=== PATIENT | female | born 1955 | race Caucasian/White ===

== ENCOUNTER 2020-07-22 11:18 | Day surgery (SDC) | payer OTHER, SELFPAY ==
[2020-07-16 14:49] VITALS: BMI 23.8
--- NOTE | 2020-07-20 15:08 | P.CONAN_ITS ---
Documented by User: Viri New 07/20/20 15:08 HPI - Anesthesia Eval Consult details Narrative: 65yo F for Colonoscopy PMFSH Past Medical History Medical History Arthritis Hx of cancer of endometrium Osteopenia PONV (postoperative nausea and vomiting) Surgical History Surgical History History of total hysterectomy with bilateral salpingo-oophorectomy (BSO) Hx of colonoscopy Social History Social History Alcohol intake: current Alcohol intake frequency: holidays/special occasions only Smoking Status: Never smoker Use of substances other than those prescribed or required for medical reasons: No Advance Directives: No Advance Directives Information Provided: No Advance Directives on File: No Meds Allergies Allergy/AdvReac Type Severity Reaction Status Date / Time nitrofurantoin [Macrodantin] Allergy Unknown Verified 04/02/20 00:00 Home Medications Medication Instructions Recorded Confirmed Type acetaminophen [Acetaminophen Pain 1,000 mg PO Q6H PRN 07/16/20 07/16/20 History Relief] calcium carbonate [Calcium 600] 600 mg PO BID 07/16/20 07/16/20 History Exam Exam Date and Time: July 20, 2020 1508 Height,Weight and Vital Signs: Height 5 ft 2 in Weight 58.967 kg Assessment and Plan Assessment Anesthesia Assessment: Chart Reviewed Documented by User: Janki Ramirez 07/22/20 11:39 [facility] Past Medical History Medical History Arthritis Hx of cancer of endometrium Osteopenia PONV (postoperative nausea and vomiting) Surgical History Surgical History History of total hysterectomy with bilateral salpingo-oophorectomy (BSO) Hx of colonoscopy Social History Social History Alcohol intake: current Alcohol intake frequency: holidays/special occasions only Smoking Status: Never smoker Use of substances other than those prescribed or required for medical reasons: No Advance Directives: No Advance Directives Information Provided: No Advance Directives on File: No Meds Allergies Allergy/AdvReac Type Severity Reaction Status Date / Time nitrofurantoin [Macrodantin] Allergy Unknown Verified 04/02/20 00:00 Home Medications Medication Instructions Recorded Confirmed Type acetaminophen [Acetaminophen Pain 1,000 mg PO Q6H PRN 07/16/20 07/16/20 History Relief] calcium carbonate [Calcium 600] 600 mg PO BID 07/16/20 07/16/20 History Exam Airway Mallampati Class: I TM Dist: >3cm Neck ROM: Full Loose/Missing/Broken Teeth: No Heart: RRR Lungs: CTA Assessment and Plan Assessment Anesthesia Assessment: Anesthesia Plan Discussed and Chart Reviewed Final Anesthetic Review NPO: Yes ASA Class: II Final Preanesthetic Review: Meds/Allgs Chart Reviewed, Consent Obtained/Reviewed and Anes Risks/Benef Reviewed Patient Risk: Low Procedure Risk: Low Anesthetic Plan Anesthetic Plan: MAC: Disposition: Standard PACU
[2020-07-22 11:32] VITALS: BP 150/90; PULSE 100; TEMP 36.4; O2SAT 98
--- NOTE | 2020-07-22 11:43 | MHC.SHP ---
Pre-Procedural Eval Section B Chief Complaint: SCREENING Details of Present Illness: Colon cancer screening Relevant Family History (Specify if Yes): No Relevant Social History: None Present Medications: see Short Stay Collaborative assessment Medical History: Significant History (Endometrial cancer, s/p [id number], Osteopenia) History of Previous Operations: Relevant previous surgery/procedure and date(s) (2013: SONJA/BSO) Allergies: Allergies Allergy/AdvReac Type Severity Reaction Status Date / Time nitrofurantoin [Macrodantin] Allergy Unknown Verified 04/02/20 00:00 Review of Systems Sugical H&P ROS: Negative: Constitution, Cardiovascular, Respiratory and Gastrointestinal and Yes, Specify: Genitourinary (hx endometrial CA) Exam Surgical H&P Exam: Normal: HEENT, Normal: Heart, Normal: Lungs, Normal: Extremities, Normal: Abdomen and Normal: Skin Plan Diagnosis/Plan: Unchanged Patient has been examined and remains a candidate for the planned procedure--yes
[2020-07-22] MEDS: Lactated Ringers 1,000 ML 100 ML IVCONT (11:46)
[2020-07-22 12:13] VITALS: BP 108/66; PULSE 78; RESP 12; TEMP 36.2; O2SAT 99
--- NOTE | 2020-07-22 12:15 | PM.PROC ---
Brief Operative Note Date of procedure: 07/22/20 Pre-op diagnosis: Colon cancer screening, no clinical changes Post-op diagnosis: other (1+ Internal Hemorrhoids.) Procedure: Colonoscopy Anesthesia: MAC (GRAY Andrews; MD James) Surgeon: Arlin Mondragon Estimated blood loss (mL): 0 Pathology: none sent Condition: stable Disposition: PACU
--- NOTE | 2020-07-22 12:21 | PC.NURSE ---
sitting up in bed alert and awake. merlyn po challenge. denies nause or pain. hob 90 degrees. abd soft. no rectal bleeding noted.
[2020-07-22 12:27] VITALS: BP 136/91; PULSE 76; RESP 16; O2SAT 99
--- NOTE | 2020-07-22 12:34 | PC.NURSE ---
iv removed. merlyn po challenge. denies abd pain or nausea. dressing self in chair. ride called
--- NOTE | 2020-07-22 12:54 | HO.POSTANES ---
Post Anesthesia Evaluation Post Anesthesia Evaluation Vital Signs: Vital Signs Temp Pulse Resp BP Pulse Ox 07/22/20 12:27 99.3 F 76 16 136/91 H 99 07/22/20 12:13 97.2 F 78 12 108/66 99 07/22/20 11:32 97.5 F 100 150/90 H 98 Anesthesia: Monitored Mental Status: Awake Pain Control: Satisfactory Nausea/Vomiting: None Hydration: Adequate Anesthesia-Related Issues: No Anes. Related Issues
--- NOTE | 2020-07-24 18:49 | OP_ITS ---
SURGEON: Arlin Mondragon MD PREOPERATIVE DIAGNOSIS: Colon cancer screening. POSTOPERATIVE DIAGNOSIS: Negative exam, 1+ internal hemorrhoids noted. PROCEDURE PERFORMED: Colonoscopy. ESTIMATED BLOOD LOSS: No blood loss. COMPLICATIONS: No complications ANESTHESIA: Monitored. ANESTHESIOLOGIST: Dr. Ramirez//GRAY Dickey. ASSISTANTS: No psychology assistant. SPECIMENS: No specimens removed. DIRECTOR COMM[facility]ITY [facility]: Dr. Mondragon. FINDINGS: Digital rectal exam revealed adequate sphincter tone. Video colonoscope was introduced without difficulty. It was navigated into the rectosigmoid, sigmoid descending, transverse, ascending colon down into the cecal cap. Appendiceal orifice was seen. Ileocecal valve was seen. Prep was good. Slow rotational views on withdrawing the scope. Anorectal verge was clear. No lesions were seen. PLAN: Current recommendations for repeat asymptomatic screening on this patient would be 7 years. GRAFT OR IMPLANTS: No implants or grafts. CONDITION: Postprocedure, stable. Arlin Mondragon MD MEN/MODL / [id number] MTDD
== END 2020-07-22 13:52 | disposition home or self-care (01) ==
PROVIDERS: PCP Nurse Practitioner Family; Visit Provider Internal Medicine Gastroenterology
PROC: 0DJD8ZZ Inspection of Lower Intestinal Tract, Via Natural or Artificial Opening Endoscopic (ICD-10-PCS; CPT 45378; principal; 2020-07-22 12:30)
DX: Z12.11 Encounter for screening for malignant neoplasm of colon (principal); K64.8 Other hemorrhoids; M19.90 Unspecified osteoarthritis, unspecified site; M85.80 Other specified disorders of bone density and structure, unspecified site; Z85.42 Personal history of malignant neoplasm of other parts of uterus; Z92.3 Personal history of irradiation; Z88.8 Allergy status to other drugs, medicaments and biological substances
CPT/HCPCS: 45378

== ENCOUNTER → 2020-08-20 09:51 | Outpatient (BNVA) | payer MEDICARE, OTHER, SELFPAY | PROVIDERS: PCP Nurse Practitioner Family; Referring Provider Nurse Practitioner Family; Visit Provider Nurse Practitioner | DX: Z12.11 Encounter for screening for malignant neoplasm of colon (principal) | CPT/HCPCS: Q3014 ==

== ENCOUNTER 2020-08-26 15:02 | Outpatient (REF) | payer MEDICARE, OTHER, SELFPAY ==
--- NOTE | 2020-08-26 15:23 | MM_ITS ---
EXAMINATION: MM SCREENING DIGITAL BREAST TOMOSYNTHESIS, BILATERAL CLINICAL INFORMATION: Screening. Asymptomatic. The lifetime risk of breast cancer based on the Tyrer-Cuzick Model is 5%. COMPARISON: Mammography: 03/14/2019 TECHNIQUE: Digital breast tomosynthesis is performed in both the craniocaudal and mediolateral oblique views along with computer-aided detection (CAD). Synthesized 2D images are generated from the tomosynthesis. Additional left MLO view is provided. FINDINGS: There are scattered areas of fibroglandular density (ACR BI-RADS breast composition Category b). There are no significant masses, abnormal calcifications, or other abnormalities. Oval parenchymal asymmetry central lower right breast on MLO view is stable. There are incidental minor vascular calcification. The axilla are unremarkable. No significant changes. MM/MM tomosynthesis screening BI IMPRESSION: No significant changes from prior study. ASSESSMENT: BI-RADS 2: Benign RECOMMENDATION: Routine annual mammography screening. This patient's information was entered into a reminder system with a target due date for their next mammogram.
== END 2020-08-26 15:03 | disposition home or self-care (01) ==
LOC: HO.MAMMO 15:02
PROVIDERS: PCP Nurse Practitioner Family; Visit Provider Student in an Organized Health Care Education/Training Program
DX: Z12.31 Encounter for screening mammogram for malignant neoplasm of breast (principal)
CPT/HCPCS: 77063; 77067

== ENCOUNTER → 2020-09-28 15:40 | Outpatient (BNVA) | payer MEDICARE, OTHER, SELFPAY | PROVIDERS: PCP Nurse Practitioner Family; Referring Provider Nurse Practitioner Family; Visit Provider Student in an Organized Health Care Education/Training Program | DX: M19.041 Primary osteoarthritis, right hand (principal); M19.042 Primary osteoarthritis, left hand | CPT/HCPCS: 99212 ==

== ENCOUNTER 2021-09-12 12:14 | Outpatient (REF) | payer MEDICARE, SELFPAY ==
--- NOTE | ~2021-09-12 | MM_ITS ---
EXAMINATION: MM SCREENING DIGITAL BREAST TOMOSYNTHESIS, BILATERAL CLINICAL INFORMATION: Screening. Asymptomatic. The lifetime risk of breast cancer based on the Tyrer-Cuzick Model is 5%. COMPARISON: Mammography: 08/26/2020, 03/14/2019 TECHNIQUE: Digital breast tomosynthesis is performed in both the craniocaudal and mediolateral oblique views along with computer-aided detection (CAD). Synthesized 2D images are generated from the tomosynthesis. FINDINGS: There are scattered areas of fibroglandular density (ACR BI-RADS breast composition Category b). There are no significant masses, abnormal calcifications, or other abnormalities. Parenchymal pattern is similar to prior exams. No developing density. No architectural changes. The axilla and skin contours are unremarkable. MM/MM tomosynthesis screening BI IMPRESSION: No mammographic evidence of malignancy. ASSESSMENT: BI-RADS 1: Negative RECOMMENDATION: Routine annual mammography screening. This patient's information was entered into a reminder system with a target due date for their next mammogram.
== END 2021-09-12 12:15 | disposition home or self-care (01) ==
LOC: HO.MAMMO 12:14
PROVIDERS: Absent Provider Student in an Organized Health Care Education/Training Program; Visit Provider Internal Medicine
DX: Z12.31 Encounter for screening mammogram for malignant neoplasm of breast (principal)
CPT/HCPCS: 77063; 77067

== ENCOUNTER 2021-09-30 | Outpatient (REF) | payer MEDICARE, SELFPAY ==
[2021-09-30 12:24] LABS: Alanine Aminotransferase 19 U/L (0-31); Alkaline Phosphatase 71 U/L (39-117); Anion Gap 10 (12-20); Aspartate Amino Transferase 18 U/L (5-31); Bilirubin Total 0.4 mg/dL (0.0-1.0); Blood Urea Nitrogen 24 mg/dL (9-16); Calcium 9.9 mg/dL (8.4-10.2); Carbon Dioxide 30 mmol/L (22-29); Chloride 105 mmol/L (96-108); Estimated Glomerular Filt Rate > 60; Glucose Random 98 mg/dL (60-115); Potassium 4.4 mmol/L (3.3-5.1); Sodium 141 mmol/L (135-145)
== END 2021-09-30 00:01 | disposition home or self-care (01) ==
LOC: HO.LAB
PROVIDERS: PCP Internal Medicine; Visit Provider Nurse Practitioner Family
DX: M19.041 Primary osteoarthritis, right hand (principal); M19.042 Primary osteoarthritis, left hand
CPT/HCPCS: 36415; 80053

== ENCOUNTER → 2021-09-30 10:01 | Outpatient (BNVA) | payer MEDICARE, SELFPAY | PROVIDERS: PCP Nurse Practitioner Family; Visit Provider Nurse Practitioner Family | DX: M19.041 Primary osteoarthritis, right hand (principal); M19.042 Primary osteoarthritis, left hand; M54.2 Cervicalgia; M79.671 Pain in right foot | CPT/HCPCS: 99212 ==

== ENCOUNTER → 2021-11-22 14:44 | Outpatient (BNVA) | payer MEDICARE, SELFPAY | PROVIDERS: PCP Internal Medicine; Visit Provider Nurse Practitioner | DX: R19.7 Diarrhea, unspecified (principal); B37.9 Candidiasis, unspecified | CPT/HCPCS: 99212 ==

== ENCOUNTER → 2022-02-27 11:25 | Outpatient (BNVA) | payer MEDICARE, SELFPAY | PROVIDERS: PCP Internal Medicine; Visit Provider Nurse Practitioner | DX: R19.7 Diarrhea, unspecified (principal) | CPT/HCPCS: 99212 ==

== ENCOUNTER 2022-09-22 09:22 | Outpatient (REF) | payer MEDICARE, SELFPAY ==
--- NOTE | ~2022-09-22 | MM_ITS ---
EXAMINATION: BONE DENSITOMETRY CLINICAL INDICATION: Osteopenia. COMPARISON: Baseline BD dated 05/21/2020. TECHNIQUE: Using a [employer] DXA System (software version: 13.1) manufactured by [employer] (T/A), dual-energy x-ray absorptiometry was performed of the lumbar spine and left hip. The images are of good technical quality. Summary results are attached. FINDINGS: AP SPINE L1-L4: Current: BMD 0.998 g/cm2, Z-score 0.3, T-score -1.5, osteopenia, 0.8% decrease from baseline (<5% change is not significant). Baseline: BMD 1.006 g/cm2. LEFT FEMUR, NECK: Current: BMD 0.703 g/cm2, Z-score -0.7, T-score -2.4, osteopenia. Baseline: BMD 0.741 g/cm2. LEFT FEMUR, TOTAL: Current: BMD 0.739 g/cm2, Z-score -0.6, T-score -2.1, osteopenia, 6.3% decrease from baseline (<5% change is not significant). Baseline: BMD 0.789 g/cm2. IDENTIFIED RISK FACTORS: Menopause. Hysterectomy. Bilateral oophorectomy. HISTORY OF FRACTURE: None listed. MEDICATIONS: Calcium supplement or multivitamin. Vitamin D. MM/XR DEXA axial skeleton IMPRESSION: 1. DIAGNOSIS: Osteopenia based on the lowest T-score value of -2.4 in the femoral neck applying World Health Organization criteria. 2. 10-YEAR FRACTURE RISK PREDICTION, FRAX: Major osteoporotic fracture (clinical spine, forearm, hip or shoulder) 13.4%. Hip fracture 3.0%. 3. Treatment Recommendations: NOF guidelines recommend consideration for treatment in postmenopausal women and men age 50 and older presenting with the following: -A hip or vertebral (clinical or morphometric) fracture. -T-score less than or equal to -2.5 at the femoral neck or spine after appropriate evaluation to exclude secondary causes. -Low bone mass at the hip or spine and a 10-year fracture probability by FRAX of greater than or equal to 3% for hip fracture or greater than or equal to 20% for major osteoporotic fracture based on the [place] adapted WHO algorithm. 4. Other Recommendations: All treatment decisions require clinical judgment and consideration of individual patient factors, including patient preferences, comorbidities, previous drug use, risk factors not captured in the FRAX model (e.g. frailty, falls, vitamin D deficiency, increased bone turnover, interval significant decline in bone density) and possible under or overestimation of fracture risk by FRAX. Additional medical evaluation for secondary cause of low bone mineral density may be appropriate. FUTURE SCAN RECOMMENDATION: People with diagnosed cases of osteoporosis or at high risk for fracture should have regular bone mineral density tests. For patients eligible for Medicare, routine testing is allowed once every 2 years. The testing frequency can be increased to one year for patients who have rapidly progressing disease, those who are receiving or discontinuing medical therapy to restore bone mass, or have additional risk factors.
--- NOTE | ~2022-09-22 | MM_ITS ---
EXAMINATION: MM SCREENING DIGITAL BREAST TOMOSYNTHESIS, BILATERAL CLINICAL INFORMATION: Screening. Asymptomatic. The lifetime risk of breast cancer based on the Tyrer-Cuzick Model is 4%. COMPARISON: Mammography: 09/12/2021, 08/26/2020, 03/14/2019 TECHNIQUE: Digital breast tomosynthesis is performed in both the craniocaudal and mediolateral oblique views along with computer-aided detection (CAD). Synthesized 2D images are generated from the tomosynthesis. FINDINGS: There are scattered areas of fibroglandular density (ACR BI-RADS breast composition Category b). There are no significant masses, abnormal calcifications, or other abnormalities. Parenchymal pattern is similar to prior studies. There is no developing density or architectural abnormality. The axilla and skin contours are unremarkable. No significant changes. MM/MM tomosynthesis screening BI IMPRESSION: No mammographic evidence of malignancy. ASSESSMENT: BI-RADS 1: Negative RECOMMENDATION: Routine annual mammography screening. This patient's information was entered into a reminder system with a target due date for their next mammogram.
== END 2022-09-22 09:23 | disposition home or self-care (01) ==
LOC: HO.MAMMO 09:22
PROVIDERS: PCP Internal Medicine; Visit Provider Student in an Organized Health Care Education/Training Program
DX: Z12.31 Encounter for screening mammogram for malignant neoplasm of breast (principal); M81.8 Other osteoporosis without current pathological fracture; M85.811 Other specified disorders of bone density and structure, right shoulder; M85.812 Other specified disorders of bone density and structure, left shoulder; M85.821 Other specified disorders of bone density and structure, right upper arm; M85.822 Other specified disorders of bone density and structure, left upper arm; M85.831 Other specified disorders of bone density and structure, right forearm; M85.832 Other specified disorders of bone density and structure, left forearm; M85.841 Other specified disorders of bone density and structure, right hand; M85.842 Other specified disorders of bone density and structure, left hand; M85.851 Other specified disorders of bone density and structure, right thigh; M85.852 Other specified disorders of bone density and structure, left thigh; M85.861 Other specified disorders of bone density and structure, right lower leg; M85.862 Other specified disorders of bone density and structure, left lower leg; M85.871 Other specified disorders of bone density and structure, right ankle and foot; M85.872 Other specified disorders of bone density and structure, left ankle and foot; M85.88 Other specified disorders of bone density and structure, other site; N95.8 Other specified menopausal and perimenopausal disorders
CPT/HCPCS: 77063; 77067; 77080

== ENCOUNTER → 2022-09-29 11:11 | Outpatient (BNVA) | payer MEDICARE, SELFPAY | PROVIDERS: PCP Nurse Practitioner Family; Visit Provider Nurse Practitioner Family | DX: M19.041 Primary osteoarthritis, right hand (principal); M19.042 Primary osteoarthritis, left hand; M43.16 Spondylolisthesis, lumbar region | CPT/HCPCS: 99212 ==

== ENCOUNTER 2023-06-28 09:37 | Outpatient (AMB) | payer MEDICARE, SELFPAY ==
--- NOTE | 2023-06-28 09:38 | MHC.OFFVIS ---
Intake Vital Signs 06/28/23 09:39 Height 5 ft 1 in Weight 134 lb 0.657 oz BMI 25.3 BP 156/82 H Blood Pressure Location Lt brachial Position Sitting Pulse 82 Pulse Source Pulse Oximeter Temp 97 F Temp Source Skin Pulse Oximetry (%) 98 Oxygen Delivery Method Room Air Intake Visit Reasons: OA Intake Note: Patient presents today to follow up on OA. c/o low back pain. Reports having OA in the back. Customer Contact Representative Required: No Accompanied by: Self / Same As Patient Allergies nitrofurantoin [Macrodantin] Allergy (Unknown, Verified 06/28/23 09:38) Unknown HPI HPI Comments History of Present Illness Details The patient returns today for evaluation of her osteoarthritis. She had last been seen earlier in the year. She has remained on acetaminophen 650 mg twice a day. Occasionally she supplements this with some oghi-tsy-lgefabm ibuprofen. She is worried about potential side effects taking these medications chronically. Areas of pain include the right hand mostly around the 2nd MCP which she had an old injury. She also gets some lower back pain and foot pain. She has not noticed any significant swelling in these areas. [facility] Medical History Arthritis Hx of cancer of endometrium Osteopenia PONV (postoperative nausea and vomiting) Primary osteoarthritis of hands, bilateral Surgical History Hx of colonoscopy History of total hysterectomy with bilateral salpingo-oophorectomy (BSO) Family History Father No problems noted. Mother Asthma Maternal Aunt Diabetes Social History (Updated 06/28/23 @ 09:43 by REZA Grimm) Alcohol intake: current Alcohol intake frequency: holidays/special occasions only Patient Tobacco Use Status: Never used Tobacco Current occupational status: retired Current occupation: former [employer] Review of Systems Const Details: Negative for appetite change, weight change, fever, chills, malaise and fatigue Eyes Details: Negative for vision change, dry eyes,headaches and dizziness GI Details: Negative indigestion/heartburn, nausea, abdominal pain, bowel changes, diarrhea, constipation and bloody stool. Skin/Breast Details: Negative for itching, rash, hives, Raynaud's symptoms, sun sensitivity, and skin cancer Endo Details: Negative for polyuria and polydypsia Sj/Lymph Details: Negative for excessive bruising or bleeding. Physical Exam Vital Signs: Last Vital Signs Temp 97 F 06/28/23 09:39 Pulse 82 06/28/23 09:39 BP 156/82 H 06/28/23 09:39 Pulse Ox 98 06/28/23 09:39 Oxygen Delivery Method Room Air 06/28/23 09:39 BMI result Body Mass Index 25.3 APPEARANCE: Patient in no acute distress EYES no redness, pupils equal and reactive to light, eyelids normal. No temporal artery tenderness, redness or swelling. EXTREMITIES: No edema, no calf tenderness, normal peripheral pulses. 5/5 strength throughout. JOINT EXAM:?? Cervical Spine:? Full range of motion with mild discomfort felt posteriorly at the extremes of normal range of motion. No tenderness. Thoracic Spine:? No scoliosis.? No tenderness on palpation. Lumbar Spine: Alignment normal.? Full range of motion, slight pain over the lumbar spine with flexion and extension. Slight tenderness to palpation over the lumbar spine. Hands: LEFT:? Normal pain-free range of motion. There is nontender bony enlargement at all the PIP and the DIP joints. There is no flexor tendon triggering, soft tissue swelling, thenar atrophy or sensory loss. RIGHT: Normal pain-free range of motion. There is some slight tenderness at the 2nd MCP where she had her old injury but there is no swelling, increased warmth or erythema. There is nontender bony enlargement at the thumb IP, all the PIP, and all the D IP joints. None of these seem to be tender today. There is no thenar atrophy, triggering, or sensory loss. Wrists:? Normal pain-free range of motion without tenderness, swelling, increased warmth or erythema. Elbows: Normal pain-free range of motion without tenderness, swelling, increased warmth or erythema. Shoulders:?? Full range of motion without pain. No tenderness, weakness, swelling, increased warmth or erythema. Hips:? Full range of motion without pain. Hip bursa: No tenderness. Knees:?? Normal pain-free range of motion with mild patellofemoral crepitus but no effusion,tenderness, swelling, increased warmth or erythema.? Ankles:? Normal pain-free range of motion without tenderness, swelling, increased warmth or erythema. Feet: Normal pain-free range of motion with slight bony enlargement and tenderness at the 1st MTP joints. There may be some minimal hallux valgus deformity on the right. Otherwise no other areas of tenderness, swelling, increased warmth or erythema. Tender points:? No tenderness to digital palpation at the occiput, trapezius, second rib, lateral epicondyle, knees, greater trochanter and gluteal area bilaterally. ? Results Reviewed Results Reviewed: Laboratory Tests 03/25/20 15:20 Rheumatoid Factor < 15.0 Cycl Citrul Peptide IgG <16 Assessment & Plan Assessment & Plan (1) Osteoarthritis of lumbar spine: Code(s): M47.816 - Spondylosis without myelopathy or radiculopathy, lumbar region (2) Primary osteoarthritis of hands, bilateral: Code(s): M19.041 - Primary osteoarthritis, right hand; M19.042 - Primary osteoarthritis, left hand Plan The patient has symptoms from osteoarthritis in the hands, cervical spine, lumbar spine and the feet. She does seem to do fairly well with current treatment with acetaminophen and occasional ibuprofen. She wanted a refill on the long-acting acetaminophen which I provided her with, she could take up to 3000 mg of the acetaminophen spread throughout the day. She could also add some low-dose ibuprofen to that. I told her that the ibuprofen has risk of GI bleeding, hypertension, and a rare side effect of nephrotoxicity. I think she is unlikely to run into those problems with the low-dose regimen. A recheck in a year would be reasonable although she could also get these refills from her primary doctor. Medications: Changed From acetaminophen ER (Tylenol Arthritis Pain) 650 mg PO Q8H PRN 90 tabs 3RF pain M47.816 - Spondylosis without myelopathy or radiculopathy, lumbar region To acetaminophen ER (Tylenol Arthritis Pain) 650 - 1,300 mg (1 - 2 x 650 mg) PO Q12H PRN 120 tabs 5RF pain M47.816 - Spondylosis without myelopathy or radiculopathy, lumbar region Coding Level of Care Code Est Pt Level 3 (09086) Diagnoses Osteoarthritis of lumbar spine M47.816 Primary osteoarthritis of hands, bilateral M19.041; M19.042
[2023-06-28 09:39] VITALS: BP 156/82; PULSE 82; TEMP 36.1; O2SAT 98; BMI 25.3
== END 2023-06-28 10:30 | disposition home or self-care (01) ==
PROVIDERS: PCP Internal Medicine; Visit Provider Internal Medicine Rheumatology
DX: M47.816 Spondylosis without myelopathy or radiculopathy, lumbar region (principal); M19.041 Primary osteoarthritis, right hand; M19.042 Primary osteoarthritis, left hand
CPT/HCPCS: 99213

== ENCOUNTER → 2023-06-28 09:37 | Outpatient (BNVA) | payer MEDICARE, SELFPAY | PROVIDERS: PCP Internal Medicine; Visit Provider Internal Medicine Rheumatology | DX: M47.816 Spondylosis without myelopathy or radiculopathy, lumbar region (principal); M19.041 Primary osteoarthritis, right hand; M19.042 Primary osteoarthritis, left hand | CPT/HCPCS: 99212 ==

== ENCOUNTER 2023-10-08 14:20 | Outpatient (REF) | payer MEDICARE, SELFPAY | END 2023-10-08 14:21 | disposition home or self-care (01) | LOC: HO.MAMMO 14:20 | PROVIDERS: PCP Internal Medicine; Visit Provider Student in an Organized Health Care Education/Training Program | DX: Z12.31 Encounter for screening mammogram for malignant neoplasm of breast (principal) | CPT/HCPCS: 77063; 77067 ==

== ENCOUNTER → 2023-10-08 14:30 | Outpatient (BNV) | payer MEDICARE, SELFPAY | PROVIDERS: PCP Internal Medicine; Visit Provider Radiology Diagnostic Radiology | DX: Z12.31 Encounter for screening mammogram for malignant neoplasm of breast (principal) | CPT/HCPCS: 77063; 77067 ==

== ENCOUNTER 2024-07-01 09:42 | Outpatient (AMB) | payer MEDICARE, SELFPAY ==
[2024-07-01 09:47] VITALS: BP 138/72; PULSE 75; O2SAT 99; BMI 24.2
--- NOTE | 2024-07-01 09:47 | MHC.OFFVIS ---
Vital Signs 07/01/24 09:47 Height 5 ft 1 in Weight 128 lb BMI 24.2 BP 138/72 Blood Pressure Location Lt brachial Position Sitting Pulse 75 Pulse Source Pulse Oximeter Pulse Oximetry (%) 99 Oxygen Delivery Method Room Air Intake Visit Reasons: oa Intake Note: Patient presents today for follow up on osteoarthritis. She was last seen in the office by Dr. Arevalo on 06/28/23. Allergies nitrofurantoin [Macrodantin] Allergy (Unknown, Verified 07/01/24 09:52) Unknown Medication List - Last Reconciled 07/01/24 by Peggy Fraser MD acetaminophen ER (Tylenol Arthritis Pain) 650 - 1,300 mg (1 - 2 x 650 mg) PO Q12H PRN calcium carbonate (Calcium 600) 600 mg PO BID ibuprofen (Advil) 200 mg PO Q6H PRN HPI Comments Details: Patient is a 69-year-old female who presents for follow up management of her osteoarthritis. Interval History: Last seen 06/28/[address] Alden Arevalo at that time patient was stable with regards to her osteoarthritis. Reassurance provided re chronic use of Tylenol and information provided about the use of ibuprofen. She is here today for follow-up Currently complaining of right shoulder stiffness. Difficult to raise her hand above her head without pain or stiffness to the right shoulder. Left shoulder without any issues. Continues to have hand pain bilaterally. Rheumatologic History: Patient refer to 03/2020 for hand pain. Evaluation at that time found the hand pain to be consistent with osteoarthritis. She has been manage with daily Tylenol and conservative management. Current Rheumatology Medication(s): Tylenol Arthritis pain Ibuprofen p.r.n. Calcium 600 mg p.o. twice a day [facility] Medical History (Updated 07/01/24 @ 10:33 by Peggy Fraser MD) Right shoulder pain Osteopenia after menopause Primary osteoarthritis of hands, bilateral PONV (postoperative nausea and vomiting) Hx of cancer of endometrium Arthritis Osteopenia Surgical History Hx of colonoscopy History of total hysterectomy with bilateral salpingo-oophorectomy (BSO) Family History Father No problems noted. 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 Review of Systems Const Details: Review of Systems Constitutional: Denies fever, chills, weight loss ENT: Denies vision changes, eye pain or eye redness, dental caries, dry mouth GI: Denies nausea, vomiting, diarrhea, abdominal pain, change in BM Pulm: Denies SOB, EVANS, hemoptysis, wheezing Cards: Denies chest pain, palpitations Skin: Denies Raynaud's, rash, nail changes, photosensitivity, 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 ?Gait normal. Constitutional Mucous membranes pink and moist patient alert and cooperative HEENT Conjunctiva and sclera clear. ?Pupils equal round and reactive to light. ?No lymphadenopathy. ?Normal dentition. Respiratory System Normal respiratory effort and able to speak in complete sentences. ?Clear to auscultation bilaterally. ?No crackles, rales, rhonchi, wheezes heard. Cardiac System Regular rate and rhythm. ?S1 and S2 heard no murmurs. ?Radial pulses intact bilaterally MSK ?No evidence of synovitis. ?Able to move all joints with full range of motion, without limitation. Hands:.??Normal pain-free range of motion without tenderness, swelling, increased warmth or erythema. Able to make a full fist and has a good coal chemist strength. Heberden's nodes throughout PIPs. Wrists: Normal pain-free range of motion without tenderness, swelling, increased warmth or erythema. Elbows: Full range of motion without pain. No tenderness, weakness, swelling, increased warmth or erythema. Shoulders: Right shoulder with decreased active range of motion but normal passive range of motion. Negative empty can test but positive Neer C[place]rena test. No swelling. Left shoulder with full range of motion to active and passive movement. Negative impingement test. Knees:.???Normal pain-free range of motion without tenderness, swelling, increased warmth or erythema.? Bilateral crepitations felt. Ankles:.??Normal pain-free range of motion without tenderness, swelling, increased warmth or erythema. Feet:.??Normal pain-free range of motion without tenderness, swelling, increased warmth or erythema. Tender points:??No tenderness to digital palpation at the occiput, trapezius, second rib, lateral epicondyle, knees, greater trochanter bilaterally, and left gluteal. Results Reviewed Results Reviewed: Laboratory Tests 03/25/20 15:20 Rheumatoid Factor < 15.0 Cycl Citrul Peptide IgG <16 DEXA 09/22/22 FINDINGS: AP SPINE L1-L4: Current: BMD 0.998 g/cm2, Z-score 0.3, T-score -1.5, osteopenia, 0.8% decrease from baseline (<5% change is not significant). Baseline: BMD 1.006 g/cm2. LEFT FEMUR, NECK: Current: BMD 0.703 g/cm2, Z-score -0.7, T-score -2.4, osteopenia. Baseline: BMD 0.741 g/cm2. LEFT FEMUR, TOTAL: Current: BMD 0.739 g/cm2, Z-score -0.6, T-score -2.1, osteopenia, 6.3% decrease from baseline (<5% change is not significant). Baseline: BMD 0.789 g/cm2. 10-YEAR FRACTURE RISK PREDICTION, FRAX: Major osteoporotic fracture (clinical spine, forearm, hip or shoulder) 13.4%. Hip fracture 3.0%. Assessment & Plan Assessment & Plan (1) Primary osteoarthritis of hands, bilateral: Code(s): M19.041 - Primary osteoarthritis, right hand; M19.042 - Primary osteoarthritis, left hand Category: Medical Plan: #OA involving the hands and spine Patient to continue conservative management with Tylenol and ibuprofen as needed for pain Encouraged activity including stretching. Handout given. Recommended topical diclofenac twice a day. She will get this [id number]. (2) Osteopenia after menopause: Comment: DEXA 09/22/22. Spine -1.5, Left femur neck -2.4, Left femur -2.1. (FRAX Major 13.4, Hip 3) Code(s): M85.80 - Other specified disorders of bone density and structure, unspecified site; Z78.0 - Asymptomatic menopausal state Category: Medical Plan: #Osteopenia Patient with osteopenia involving the spine and left femur. FRAX for major osteoporotic fracture and hip fracture is below the percentage recommended for commencement of treatment. (major osteoporotic fracture would need to be greater than 20% and hip fracture would need to be greater than 3%). I agreed with holding off treatment for now. Advised patient to continue vitamin-D and calcium. Also gave her a printout for weight-bearing exercises and instructed her of the importance of doing weight-bearing exercises in the manufacturing of new bone. (3) Right shoulder pain: Code(s): M25.511 - Pain in right shoulder Category: Medical Qualifiers: Chronicity: unspecified Qualified Code(s): M25.511 - Pain in right shoulder Plan: #Right Shoulder pain Patient with pain to the right shoulder. History and exam seems to be weak consistent with rotator cuff disease. Also in the differential as frozen shoulder however I was able to move the shoulder in full range of motion on passive movement. Also in the differential is AC joint osteoarthritis versus glenohumeral joint osteoarthritis. We will check x-rays and review. Plan I spent 25 minutes reviewing the record and labs, seeing the patient, discussing the treatment plan and documenting in the medical record ? For next visit: DEXA scan review Orders: Orders XR shoulder RT min 2V Today M19.041 - Primary osteoarthritis, right hand, M19.042 - Primary osteoarthritis, left hand, M47.816 - Spondylosis without myelopathy or radiculopathy, lumbar region XR DEXA axial skeleton 1 Year M19.041 - Primary osteoarthritis, right hand, M19.042 - Primary osteoarthritis, left hand, M85.80 - Other specified disorders of bone density and structure, unspecified site, Z78.0 - Asymptomatic menopausal state Medications: Refilled acetaminophen ER (Tylenol Arthritis Pain) 650 - 1,300 mg (1 - 2 x 650 mg) PO Q12H PRN 120 tabs 5RF pain M47.816 - Spondylosis without myelopathy or radiculopathy, lumbar region Coding Level of Care Code Est Pt Level 3 (80224) Diagnoses Primary osteoarthritis of hands, bilateral M19.041; M19.042 Osteopenia after menopause M85.80; Z78.0 Right shoulder pain, unspecified chronicity M25.511 Chronicity: unspecified
== END 2024-07-01 10:23 | disposition home or self-care (01) ==
PROVIDERS: PCP Internal Medicine; Visit Provider Student in an Organized Health Care Education/Training Program
DX: M19.041 Primary osteoarthritis, right hand (principal); M19.042 Primary osteoarthritis, left hand; M85.80 Other specified disorders of bone density and structure, unspecified site; Z78.0 Asymptomatic menopausal state; M25.511 Pain in right shoulder
CPT/HCPCS: 99213

== ENCOUNTER 2024-07-01 09:42 | Outpatient (REF) | payer MEDICARE, SELFPAY | END 2024-07-01 09:43 | disposition home or self-care (01) | LOC: HO.XRAY 09:42 | PROVIDERS: PCP Internal Medicine; Visit Provider Student in an Organized Health Care Education/Training Program | DX: M25.511 Pain in right shoulder (principal); M19.041 Primary osteoarthritis, right hand; M19.042 Primary osteoarthritis, left hand; M47.816 Spondylosis without myelopathy or radiculopathy, lumbar region; M85.80 Other specified disorders of bone density and structure, unspecified site; Z78.0 Asymptomatic menopausal state | CPT/HCPCS: 73030; 99212 ==

== ENCOUNTER 2024-07-11 12:52 | Outpatient (AMB) | payer MEDICARE, SELFPAY ==
[2024-07-11 13:06] VITALS: BP 153/87; PULSE 91; BMI 24.1
--- NOTE | 2024-07-11 13:06 | A.OFFVIS_ITS ---
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 CC: Patient c/o epigastric pain and burning sometimes, and acid reflux. She reports sometimes soft stools and other times more solid but not too hard . Knock Up Assembler Required: No Accompanied by: Self / Same As Patient Allergies nitrofurantoin [Macrodantin] Allergy (Unknown, Verified 07/11/24 13:14) Unknown HPI HPI New dx Kim Syndrome, new sx: Details: Assessment & Plan (1) Acute diarrhea: Code(s): R19.7 - Diarrhea, unspecified Plan: She continues to feel well and has had no more diarrhea etc. She asks what is colitis. I explain that this is really a sign and not a diagnosis. Most often colitis is of infectious origin including foodborne illness and diverticulitis. Allergies, laxatives, viral infection, and rarely IBD can cause colonic inflammation seen on imaging as colitis. So long as she does not have any more sx, we can assume this was acute and needs to further treatment. Again, the most likely cause of her colitis was either viral or infectious given her normal past colonoscopies. Since were not actively treating anything I will see her again only if she has symptoms and she is quite agreeable to calling me as needed. 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 Monica also had genetic testing showing Kim syndrome. She also had the genetic testing showing Kim. she has some bowel variability with normal alt with looser stools and some bowel urgency. Her dtr has been dx'ed with Celiac recently. Will get TTGA and RASST to try to address this. She also suffers GERD and HB with spicy foods. She denies any cardiac or respiratory problems. There are no prior problems with anesthesia or sedation. NO ID She has had negative scopes in past last in 2019. [facility]LY [facility], [facility] Medical History Ovarian cancer Right shoulder pain Osteopenia after menopause Primary osteoarthritis of hands, bilateral PONV (postoperative nausea and vomiting) Hx of cancer of endometrium Arthritis Osteopenia Surgical History Hx of colonoscopy History of total hysterectomy with bilateral salpingo-oophorectomy (BSO) Family History Father No problems noted. 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 Review of Systems Const Denies fatigue, Denies fever(s), Denies night sweats, Denies poor appetite and Denies weight loss Eyes Details: glasses Reports requires corrective lenses ENT Reports Normal hearing present, Denies dental pain, Denies dysphagia, Denies hearing loss, Denies mouth pain, Denies odynophagia, Denies throat swelling, Denies tongue swelling and Reports other (Dentition adequate) Card Reports no additional complaints Resp Reports no additional complaints GI Details: Denies abdominal pain, Denies melena, Denies bloating, Denies hematochezia, Denies constipation, Denies GI cramping, Denies dysphagia, Denies excessive flatus, Denies early satiety, Denies heartburn, Reports diarrhea, Denies nausea, Denies odynophagia, Denies vomiting and Denies hematemesis Skin/Breast Denies pruritus, Denies lesions, Denies rash and Denies jaundice Neuro Reports Normal hearing present and Denies Abnormal speech present Endo Denies fatigue Aller/Immun Denies throat swelling and Denies tongue swelling Physical Exam Vital Signs: Last Vital Signs Pulse 91 07/11/24 13:06 BP 153/87 H 07/11/24 13:06 BMI result Body Mass Index 24.1 Const General: cooperative, no acute distress, well developed and well groomed Nutritional Appearance: average body habitus and well nourished Orientation/consciousness: oriented to person, oriented to place and oriented to time Limitations: No language barrier HEENT Head: Yes normocephalic and Yes atraumatic Eyes General: appearance normal, both eyes and all related structures Pupils: Equal, round and reactive pupils present Neck Neck: Yes normal visual inspection and Yes no lymphadenopathy Thyroid: Thyroid normal Resp Effort & Inspection: normal respiratory effort and able to speak in complete sentences Auscultation: clear to auscultation bilaterally Cardio Rate: regular rate Rhythm: regular rhythm Heart sounds: Normal, physiologic split S2 sound present Peripheral pulses: radial pulses present and posterior tibial pulses present GI Inspection: No distended, No Abdominal panniculus present and Yes scar Palpation (GI): Soft to palpation, nontender, no guarding, not rigid and No hepatosplenomegaly present Percussion: Yes normal to percussion Auscultation: normal bowel sounds Rectal Exam - Female: deferred Abdomen image: 2 1. surgical scar Skin General skin exam: no rashes or lesions noted, turgor normal, skin not dry, no jaundice, No spider nevi and no striae Rashes: no rashes Nails: normal Neuro General: oriented to person, oriented to place and oriented to time Cranial nerves: Yes Equal, round and reactive pupils present and Yes Normal hearing present Speech: No Abnormal speech present Extrem General: Yes normal to inspection, No clubbing, No cyanosis and No edema Psych Appearance: grossly normal and well kempt Mental Status: mental status grossly normal Speech and movement: Normal speech and movement present Affect: normal affect Attitude: cooperative Thought process: Normal thought process present and not confabulating Thought content: Normal thought content present Insight: Fair insight present (Psych) Judgement: Fair judgement present (Psych) Assessment & Plan Assessment & Plan (1) MSH6-related Kim syndrome (HNPCC5): Comment: genetic testing results in chart Code(s): Z15.09 - Genetic susceptibility to other malignant neoplasm Category: Medical (2) Diarrhea: Code(s): R19.7 - Diarrhea, unspecified Category: Medical (3) GERD (gastroesophageal reflux disease): Code(s): K21.9 - Gastro-esophageal reflux disease without esophagitis Category: Medical Plan PATIENT HAS BEEN LOST TO FOLLOW-UP SINCE 02/2022 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 Moncia also had genetic testing showing Kim syndrome. She also had the genetic testing showing Kim. she has some bowel variability with normal alt with looser stools and some bowel urgency. Her dtr has been dx'ed with Celiac recently. Will get TTGA and RASST to try to address this. She also suffers GERD and HB with spicy foods. She denies any cardiac or respiratory problems. There are no prior problems with anesthesia or sedation. NO ID She has had negative scopes in past last in 2019. Orders: Orders 2 Rast Allergen 07/11/24 R19.7 - Diarrhea, unspecified Transglutaminase IgA 07/11/24 R19.7 - Diarrhea, unspecified Transglutaminase Ab IgG 07/11/24 R19.7 - Diarrhea, unspecified EGD/Brandon Combo - GI Use Only 07/11/24 Z15.09 - Genetic susceptibility to other malignant neoplasm Medications: New 2 famotidine (Pepcid) 40 mg PO BEDTIME PRN 30 tabs 3RF heartburn K21.9 - Gastro- esophageal reflux disease without esophagitis peg 3350-electrolytes 236-22.74-6.74 -5.86 gram (Golytely) until fecal effluent is clear; do not exceed a total volume of 2,000 mL 240 mL PO Q10M 4,000 mL 0RF 1 day Z12.11 - Encounter for screening for malignant neoplasm of colon bisacodyl (Dulcolax (bisacodyl)) 10 mg (2 x 5 mg) PO BEDTIME 4 tabs 0RF 2 days Coding Level of Care Code Est Pt Level 4 (32145) Diagnoses MSH6-related Kim syndrome (HNPCC5) Z15.09 Diarrhea R19.7 GERD (gastroesophageal reflux disease) K21.9
== END 2024-07-11 13:51 | disposition home or self-care (01) ==
LOC: HO.HGI 12:53
PROVIDERS: PCP Internal Medicine; Visit Provider Nurse Practitioner
DX: Z15.09 Genetic susceptibility to other malignant neoplasm (principal); R19.7 Diarrhea, unspecified; K21.9 Gastro-esophageal reflux disease without esophagitis
CPT/HCPCS: 99214

== ENCOUNTER 2024-07-11 12:52 | Outpatient (REF) | payer MEDICARE, SELFPAY ==
[2024-07-16 07:29] LABS: Transglutaminase Ab IgG <1.0 U/mL; Transglutaminase IgA <1.0 U/mL
== END 2024-07-11 12:53 | disposition home or self-care (01) ==
LOC: HO.LAB 12:52
PROVIDERS: PCP Internal Medicine; Visit Provider Nurse Practitioner
DX: Z15.09 Genetic susceptibility to other malignant neoplasm (principal); R19.7 Diarrhea, unspecified; K21.9 Gastro-esophageal reflux disease without esophagitis
CPT/HCPCS: 36415; 86003; 86364; 99212

== ENCOUNTER 2024-10-13 11:17 | Outpatient (REF) | payer MEDICARE, SELFPAY ==
--- OUTSIDE RECORDS SUMMARY | 2024-10-13 12:33 | XMS_ITS | Clinical Summary ---
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 Name Role Phone Unavailable Primary Care Provider Unavailabl e Social History Tobacco Use Types Packs/Day Years Used Date Smoking Tobacco: Never Assessed Sex and Gender Information Value Date Recorded Sex Assigned at Not on file Gender Identity Not on file Sexual Orientation Not on file Plan of Treatment Health Maintenance Due Date Last Done Comments Breast Cancer Screening 1955 DTaP,Tdap,and Td Vaccines (1 - Tdap) 1974 Zoster Vaccines (1 of 2) 2005 Pneumococcal Vaccine: 65+ Ye ars (1 of 1 - PCV) 01/15/2020 Colorectal Cancer Screening: Colonoscopy 08/13/2022 Depression Screening 08/13/2022 Falls Risk Assessment 08/13/2022 Hepatitis C Screening 08/13/2022 Osteoporosis Screening (Bone Density Screening) 08/13/2022 Social Influencers of Health Screening 08/13/2022 COVID-19 Vaccine (1 - 2023-2 5 season) 2024 Influenza Vaccine (#1) 2024 RSV Immunization Patients 60 + Years Old (1 - 1-dose 75+ series) 2030 HIB Vaccines Aged Out No longer eligi ble based on patient's age to complete this topic HPV Vaccines Aged Out No longer eligi ble based on patient's age to complete this topic Hepatitis A Vaccines Aged Out No long er eligible based on patient's age to complete this topic Hepatitis B Vaccines Aged Out No long er eligible based on patient's age to complete this topic IPV Vaccines Aged Out No longer eligi ble based on patient's age to complete this topic MMR Vaccines Aged Out No longer eligi ble based on patient's age to complete this topic Meningococcal ACWY Vaccine Aged Out N o longer eligible based on patient's age to complete this topic RSV Immunization Patients Un bernice 20 months Aged Out No longer eligible b ased on patient's age to complete this topic Varicella Vaccines Aged Out No longer eligible based on patient's age to complete this topic
== END 2024-10-13 11:18 | disposition home or self-care (01) ==
LOC: HO.MAMMO 11:17
PROVIDERS: PCP Internal Medicine; Visit Provider Internal Medicine
DX: Z12.31 Encounter for screening mammogram for malignant neoplasm of breast (principal)
CPT/HCPCS: 77063; 77067

== ENCOUNTER → 2024-10-13 11:30 | Outpatient (BNV) | payer MEDICARE, SELFPAY | PROVIDERS: PCP Internal Medicine; Visit Provider Internal Medicine | DX: Z12.31 Encounter for screening mammogram for malignant neoplasm of breast (principal) | CPT/HCPCS: 77063; 77067 ==

== ENCOUNTER 2024-11-11 09:28 | Outpatient (AMB) | payer MEDICARE, SELFPAY ==
--- NOTE | 2024-11-11 09:32 | AM.OFFWIN_ITS ---
Intake Vital Signs 11/11/24 09:33 Weight 128 lb 8 oz BP 120/84 Blood Pressure Location Rt brachial Position Sitting Pulse 81 Pulse Source Pulse Oximeter Temp 98.2 F Temp Source Oral Pulse Oximetry (%) 98 Oxygen Delivery Method Room Air Intake Visit Reasons: EP ? Strep throat Intake Note: Patient here for sore throat that has been present for about 1 week. Patient Tobacco Use Status: Never used Tobacco Allergies nitrofurantoin [Macrodantin] Allergy (Unknown, Verified 11/11/24 09:35) Unknown Do you need a note to return to daycare/school/sports/work: No HPI HPI Comments History of Present Illness Details This is a 69-year-old female with a past medical history of gastroesophageal reflux disease presenting for evaluation of a sore throat that has been worse at night over the past 2 weeks. Patient states that she noted white spots in the back of her throat 2 days ago. Patient denies having any fevers but has had chills. Patient has been taking Tylenol only without relief of her discomfort and her last dose of Tylenol was last night. She denies having any otalgia, difficulty swallowing, or cough. [facility] Medical History Ovarian cancer Right shoulder pain Osteopenia after menopause Primary osteoarthritis of hands, bilateral PONV (postoperative nausea and vomiting) Hx of cancer of endometrium Arthritis Osteopenia Surgical History Hx of colonoscopy History of total hysterectomy with bilateral salpingo-oophorectomy (BSO) Family History Father No problems noted. 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 Review of Systems Const All systems reviewed & are unremarkable except as noted in HPI and below Reports chills, Denies fatigue and Denies fever(s) Eyes Reports as per HPI ENT Denies otalgia, Denies facial pain, Denies post nasal drip and Reports sore throat Resp Reports no additional complaints GI Reports no additional complaints Reports no additional complaints Musc Reports no additional complaints Skin/Breast Reports system reviewed and no additional complaints, except as documented Neuro Reports no additional complaints Endo Reports no additional complaints and Denies fatigue Sj/Lymph Reports no additional complaints Aller/Immun Reports no additional complaints Physical Exam Const General: cooperative, healthy appearing, comfortable, no acute distress, well developed, alert, awake and Physically active Nutritional Appearance: average body habitus Orientation/consciousness: patient oriented x3 Limitations: no limitations HEENT Head: Yes normal to inspection and Yes normocephalic Ears: hearing grossly normal bilaterally, external ears normal, TM's normal bilaterally and EAC's normal General nose exam: Normal external nose present Face and sinus: Yes normal facial exam and Yes sinuses nontender Mouth: Normal oral and palatal mucosa present and moist mucous membranes Throat: Yes posterior oropharynx normal ( There is no edema, erythema or exudates of the posterior oropharynx) and No postnasal drainage Eyes General: appearance normal, both eyes and all related structures Neck Lymphatic: no lymphadenopathy noted Neuro General: patient oriented x3 Psych Appearance: grossly normal Mental Status: mental status grossly normal Insight: Good insight present (Psych) Judgement: Good judgement present (Psych) Results Reviewed Results Reviewed: rapid strep is negative. Assessment & Plan Assessment & Plan (1) Pharyngitis: Comment: Patient states she has not been compliant with her famotidine for management of her reflux disease. Strep test is negative. Code(s): J02.9 - Acute pharyngitis, unspecified Qualifiers: Pharyngitis/tonsillitis etiology: unspecified etiology Qualified Code(s): J02.9 - Acute pharyngitis, unspecified Plan: Patient is encouraged to take famotidine as previously prescribed; Tylenol or ibuprofen as needed for pharyngitis. SARS panel is ordered and results are pending. Orders: Orders SARS-CoV2/FLU/RSV Today J06.9 - Acute upper respiratory infection, unspecified Coding Level of Care Code Est Pt Level 3 (16186) Diagnoses Pharyngitis, unspecified etiology J02.9 Pharyngitis/tonsillitis etiology: unspecified etiology Time Spent (min) 20
[2024-11-11 09:33] VITALS: BP 120/84; PULSE 81; TEMP 36.8; O2SAT 98
--- OUTSIDE RECORDS SUMMARY | 2024-11-11 10:33 | XMS_ITS | Clinical Summary ---
Author Organization [facility] Address [address] [place] [address] Care Team Providers Care [place] Drill Operator Name Role Phone Unavailable Primary Care Provider Unavailabl e Social History Tobacco Use Types Packs/Day Years Used Date Smoking Tobacco: Never Assessed Comments Unknown Sex and Gender Information Value Date Recorded Sex Assigned at Not on file Legal Sex Female 6:44 AM EST Gender Identity Not on file Sexual Orientation Not on file Plan of Treatment Health Maintenance Due Date Last Done Comments Breast Cancer Screening 1955 DTaP,Tdap,and Td Vaccines (1 - Tdap) 1974 Pneumococcal Vaccine: 50+ Ye ars (1 of 1 - PCV) 2005 Zoster Vaccines (1 of 2) 2005 Colorectal Cancer Screening: Colonoscopy 08/13/2022 Depression Screening 08/13/2022 Falls Risk Assessment 08/13/2022 Hepatitis C Screening 08/13/2022 Osteoporosis Screening (Bone Density Screening) 08/13/2022 Social Influencers of Health Screening 08/13/2022 COVID-19 Vaccine ( - 2023-2 5 season) 2024 Influenza Vaccine [...] patient's age to complete this topic Meningococcal B Vacine Aged Out No lo nger eligible based on patient's age to complete this topic RSV Immunization Patients Un bernice 20 months Aged Out No longer eligible b ased on patient's age to complete this topic Varicella Vaccines Aged Out No longer eligible based on patient's age to complete this topic
--- OUTSIDE RECORDS SUMMARY | 2024-11-11 10:33 | XMS_ITS | Patient Health Record ---
Author Organization [facility] aury Towner Address [address] [place] [address] Care Team Providers Care Construction Equipment Technician Name Role Phone Yovana Izaguirre Primary Care Provider Unavailabl e Black, Leticia Unavailable [phone] Allergies Allergen (clinical drug ingredient) Drug/Non Drug Allergy documented on EMR Reaction Allergy Type Onset Date Status nitrofurantoin Macrodantin Unknown Drug Allergy Active Results Component Value Reference Range Notes X ray : Foot, right 3V Reviewed date:08/13/2024 03:10:11 PM Interpretation:See Examination above Performing Lab: Notes/Report: See Examination above Reason For Referral No Information Medications Medication SIG (Take, Route, Fr equency, Duration) Notes Start Date End Date Status Tylenol 8 Hour 650 MG 2 tablets as neede d Orally every 8 hrs Active Advil 200 MG 1 tablet with food o r milk as needed Orally Three times a day Active Calcium Active Immunizations Vaccine Route Administration Date Status Comme nts COVID-19 Moderna Vaccine Unknown 08/19/2021 Administered First Dose:10/08/2020 Second Dose: 11/05/2020 Social History Tobacco Use: Social History Observation Description Date Details (start date - stop date) Never Smoker NA - NA Tobacco use other than smoking: Question Answer Notes Are you an other tobacco user? No Tobacco Control (Standard) Question Answer Notes Tobacco use: Nonsmoker Additional Findings: Tobacco non-user Current no nsmoker AUDIT-C (Standard) Question Answer Notes Did you have a drink contain ing alcohol in the past year? Yes How often did you have six o r more drinks on one occasion in the past year? Never (0 point) How many drinks did you have on a typical day when you were drinking in the past year? 1 or 2 drinks (0 point) How often did you have a dri nk containing alcohol in the past year? Monthly or less (1 point) Points 1 Interpretation Negative Problems Problem Type SNOMED Code ICD Code Onset Dates Problem Status W/U Status Risk Notes Problem Acquired hallux valgus (97475023) Hallux valgus (acquired), left foot (M20.12) Active confirmed Problem Localized, primary osteoarthritis of the ankle and/or foot (905710983) Primary osteoarthrit is, right ankle and foot (M19.071) Active confirmed Problem Acquired hallux valgus (16910245) Hallux valgus (acquired), right foot (M20.11) Active confirmed Problem Acquired hammer toe of right foot (0921995681574968) Other hammer toe(s) (acquired), right foot (M20.41) Active confirmed Problem Acquired hammer toe of left foot (4382196689809558) Other hammer toe(s) (acquired), left foot (M20.42) Active confirmed Vital Signs Height 5ft 1in in 08/13/2024 Weight 128 lbs 08/13/2024 BMI 24.18 kg/m2 08/13/2024 Encounters Encounter Location Date Provider Diagnosis [facility] [place] [place] [address] 08/13/2024 Leticia Black Pain in right foot M79.671 ; Hallux valgus (acquired), right foot M20.11 ; Pain in right ankle and joints of right foot M25.571 and Bursitis of right foot M77.51 Assessments Encounter Date Diagnosis (ICD Code) Assessment Notes Treatment Notes Treatment Clinical Notes Section Notes 08/13/2024 Pain in right foot (ICD-10 - M79.671) 08/13/2024 Hallux valgus (acquired), right foot (ICD-10 - M20.11) 08/13/2024 Pain in right ankle and joints of right foot (ICD-10 - M25.571) 08/13/2024 Bursitis of right foot (ICD-10 - M77.51) Plan Of Treatment Pending Test Test Name Order Date [id number] NAIL, 1-5 11/28/2021 Insurance Providers Payer Name Payer Address Payer Phone Subscriber Number Group Number Insured Name Patient Relationship to Insured Coverage Start Date Coverage End Date [employer] Medicare Adv-[id number] [address] [address] [place] [address] [id number] Monica Booker Self - patient is the insured Medical (General) History Medical History History ICD Code Arthritis Cancer Surgical History Surgery Date(Month/Year) hysterectomy, complete 01/08/2013 colonoscopy 2020 Hospitalization History Reason Date(Month/Year) [facility]- Bleeding- GI Dr - ruptured hemorroi ds 11/29
--- OUTSIDE RECORDS SUMMARY | 2024-11-11 10:33 | XMS_ITS ---
Author Organization [facility] Address [address] [place] [address] Care Team Providers Care Culinary Artist Name Role Phone Yovana Izaguirre Primary Care Provider Unavailabl e Black, Leticia Unavailable [phone] Allergies Allergen (clinical drug ingredient) Drug/Non Drug Allergy documented on EMR Reaction Allergy Type Onset Date Status Macrodantin Unknown Drug Allergy Activ e Results Component Value Reference Range Notes X ray : Foot, right 3V Reviewed date:08/13/2024 03:10:11 PM Interpretation:See Examination above Performing Lab: Notes/Report: See Examination above REASON FOR VISIT last visit pcp 06/2023, Foot pain Medications Medication SIG (Take, Route, Fr equency, Duration) Notes Start Date End Date Status Tylenol 8 Hour 650 MG 2 tablets as neede d Orally every 8 hrs Active Advil 200 MG 1 tablet with food o r milk as needed Orally Three times a day Active Calcium Active Social History Tobacco Use: Social History Observation [...] less (1 point) Points 1 Interpretation Negative Vital Signs Height 5ft 1in in 08/13/2024 Weight 128 lbs 08/13/2024 BMI 24.18 kg/m2 08/13/2024 Encounters Encounter Location Date Provider Diagnosis [address] [address] 08/13/2024 Leticia Black Pain in right foot [...] foot (ICD-10 - M77.51) Plan Of Treatment Next Appt Details Follow Up: prn, Reason: Progress Notes * Jordana NARANJOOB:[birth year] (69 yo F)Acc No.[id number]:08/13/2024 Progress Note Patient:?MARCELLA Monica Provider:?Leticia Martin DPM :1955???Age:69 Y???Sex:Female D ate:08/13/2024 Address:[address], [facility] Pcp:Yovana Izaguirre Subjective: * Chief Complaints: * ???Last visit pcp 06/2023Foo t pain * HPI: ???Foot Pain:?Nature:?burning.?Location:?Inside, Great toe joint, RIGHT.?Duration:?, several months.?Onset:?gradual.?Course:?worse.?Aggravated:?any pressure.?Treatments:?rest/alter normal daily activity.?Severity/Quality:?moderate.? * ROS:?General/Constitutional:?Nausea?denies.?Vomiting?denies.?Hunger Thirst?denies.?Loss appetite?denies.?Chills?denies.?Fatigue?denies.?Fever?denies.?Night Sweats?denies.?Unexplained weight loss?denies.?Unexplained weight gain?denies.?HEENTM:?Dentures?denies.?Dizziness?denies.?Glasses/contacts?admits.?Retinopathy?de nies.?Blurred/double vision?denies.?TMJ?denies.?Discharge/drainage?denies.?Implants?denies.?Sore throat?denies.?Dental implants?denies.?Hard of hearing ?denies.?Difficulty chewing/swallowing/speaking?denies.?Nose bleeds?denies.?Sore mouth?denies.?Respiratory:?On Oxygen?denies.?Pneumonia/pleurisy?denies.?Bronchitis?denies.?Emphysema?denies.?C oughing?denies.?Cough blood?denies.?Shortness of breath?denies.?Wheezing?denies.?Cardiovascular:?Pacemaker?denies.?MVP?denies.?WPW?denies.?CHF?denies.?Heart attack?denies.?Septal defect?denies.?Rapid beat?denies.?Chest pain ?denies.?Atrial Fib.?denies.?Murmur/Palpitations?denies.?Gastrointestinal:?Hemorrhoids?denies.?Stomach/Abdominal pain?denies.?Dark blood stool?denies.?Irritable bowel ?denies.?Constipation?denies.?Diarrhea?admits.?Hematology:?Swelling?denies.?Clots?denies.?Varicose Veins?denies.?Bruising?denies.?Bleeding problem?denies.?Genitourinary:?Blood urine?denies.?Frequent/Painfu/urination/bladder control?denies.?Kidney stones?denies.?Infection (UTI)?admits.?Nephropathy?denies.?sex trans dis (STD)?denies.?Prostate?denies.?Musculoskeletal:?Hammertoes?denies.?Bunions?admits.?Back Pain?denies.?Muscle Cramps/ Resting?denies.?Muscle cramps / walking?denies.?Generalized aches and pains?admits.?Weakness?denies.?Integ.:?Ríos?denies.?Scars?denies.?Corns/calluses?denies.?Ingrown nails?denies.?Painful nails?admits.?Open Sores?denies.?Rashes?denies.?Neurologic:?Difficulty sleeping?denies.?Brain disorder?denies.?Numbness?denies.?Balance trouble?denies.?Confusion?denies.?Fainting/blackouts?denies.?Tingling?denies.?Tr emors?denies.? * Medical History:? * Surgical History:?hysterecto my, complete 01/08/2013colonoscopy 2020 * Hospitalization/Major Diagno stic Procedure:?[facility]- Bleeding- GI Dr - ruptured hemorroids 11/29 * Family History:?Mother: dece ased, diagnosed with Family history of arthritis.?Father: .?Siblings: cancer cervical.?Spouse: alive, diagnosed with Other malignant neoplasm of unspecified site, Diabetic - NIDDM, Unspecified heart disease.? * Social History:?Tobacco Use:?Tobacco use other than smoking?Are you an other tobacco user??No ?Tobacco Control (Standard)?Tobacco use:?Nonsmoker ?Additional Findings: Tobacco non-user?Current nonsmoker ???Drugs/Alcohol:?Drugs?Have you used drugs other than those for medical reasons in the past 12 months??No ???Miscellaneous:?Caffeine: yes, 2 cups per day. ?Children: yes, 3. ?Exercise: yes, walking. ?Marital status: . ?Occupation: [employer] , Retired. ???Drug/Alcohol:?AUDIT-C (Standard)?Did you have a drink containing alcohol in the past year??Yes ?How often did you have six or more drinks on one occasion in the past year??Never (0 point) ?How many drinks did you have on a typical day when you were drinking in the past year??1 or 2 drinks (0 point) ?How often did you have a drink containing alcohol in the past year??Monthly or less (1 point) ?Points?1 ?Interpretation?Negative * Medications:?TakingAdvil 200 MG Tablet 1 tablet with food or milk as needed Orally Three times a day Calcium Tylenol 8 Hour 650 MG Tablet Extended Release 2 tablets as needed Orally every 8 hrs Medication List reviewed and reconciled with the patientTaking Advil 200 MG Tablet 1 tablet with food or milk as needed Orally Three times a day Taking Calcium Taking Tylenol 8 Hour 650 MG Tablet Extended Release 2 tablets as needed Orally every 8 hrs Medication List reviewed and reconciled with the patient * Allergies:?Macrodantinyes[Paul matta Verified] Objective: * Vitals:?Ht: 5ft 1in, Wt:128, BMI:24.18, Shoe size: 8, Ht-cm: 154.94 cm, Wt-k.06 kg. * Examination: ???General Examination: ?GENERAL APPEARANCE:?Reveals a pleasant, alert, well nourished, well- developed, well hydrated individual, who demonstrates proper attention to hygiene/body habitus, and is in no acute distress, Pt serves as own historian for office visit today.?ORIENTED:?person, place, and time.?Orthopedic: ?MUSCLE STRENGTH:?5/5 all groups in a symmetrical fashion, B/L.?GAIT ABNORMALITY:?Pronated, flexor stabilization noted, abducted angle and base of gate, B/L.?FOOT MORPHOLOGY:?Pes Planus structure, Semi-flexible, B/L.?BUNION:? Medially prominent 1st MPJ,(+) Pain on palpation,inflammation present medially,Lateral tracking 1st MPJ incompletely reducible, RIGHT,ROM 1st MPJ full,and without pain, or crepitus.?TAILOR'S BUNION:?Prominent 5th MTH/MPJ, B/L.?DIGITAL DEFORMITIES:?Digital contracture, PIPJ, 2-5 B/L, incompl-reducible with WB, or to push-up test, no over, nor underlapping.?Neurological: ?TINEL'S COMPRESSION:? Negative, Saphenous nerve distribution, Right.?Vascular: ?DP PULSES(B):?2/4, B/L.?PT PULSES(B):?2/4, B/L.?CAPILLARY FILL TIME:?immediate, all digits, B/L.?TROPHIC CONDITION-TEXTURE/ELASTICITY/TURGOR/HAIR GROWTH(B):?normal, B/L.?TEMPERTURE GRADIENT(C):?normal, warm to cool, proximal to distal, B/L, B/L.?PIGMENTATION:?normal, B/L.?EDEMA(C):?absent, B/L.?X-Rays - IMAGING REPORT: ?Clinical Indication(s):? Evaluate Biomechanical Deformity.?Views:?AP, LAT, MO, RIGHT??Taken by trained?Podiatric Guest Services Representative (?MB).?Findings:?normal bone and soft tissue density consistent for patients age and sex, dorsal degenerative changes of the tarsal joints.?HAV:?increased First Intermetatarsal angle and Hallux Abductus angle consistent with Bunion deformity noted, hypertrophy of the dorsal and medial 1st MTH without subchondral cyst.?Fracture:?Negative fractures identified.?Dermatologic: ?SKIN FINDINGS:?Skin exam reveals Keratotic lesion(s) located at, IPJ, Medial plantar, TA, T5.? Assessment: * Assessment: 1.?Pain in right foot - M79. 671???2.?Hallux valgus (acquired), right foot - M20.11 (Primary)???3.?Pain in right ankle and joints of right foot - M25.571???4.?Bursitis of right foot - M77.51??? Plan: * Treatment: * Procedure Codes:?71885 X-RAY EXAM OF RIGHT FOOT 3V, Modifiers: 26 , RT * Preventive Medicine:? ??Counseling:?Discussion:?-14: Office or other outpatient visit for the evaluation and management of an established patient, which required a medically appropriate history and/or examination and MODERATE level of DECISION MAKING for: 1 OR MORE CHRONIC PROBLEM(S) THATS WORSENING, 2 STABLE CHRONIC PROBLEMS, A NEWLY DIAGNOSED PROBLEM WITH UNCERTAIN PROGNOSIS, AN ACUTE COMPLICATED INJURY WITH MULTIPLE TREATMENT OPTIONS, OR AN ACUTE PROBLEM WITH ACCOMPANYING SYSTEMIC SYMPTOMS, THAT POSE(S) A MODERATE RISK OF MORBIDITY. THIS CONDITION MAY ALSO INCLUDE RX DRUG MANAGEMENT, OR A DECISON FOR MINOR SURGERY. The visit on the day of the encounter encompassed interpreting the data and educating the patient as to the nature of their condition, treatment options available according to their individual PMH, meds, allergies, and overall health/living conditions, as well as any potential risks or complications that may occur from a failure to adhere to, and participate in, the recommended course of therapy. The discussion included a complete verbal, and/or written explanation of the examination results, any x-rays taken, the proposed diagnosis, and outline of the treatment plan. A schedule for future care needs was also explained. The patient verbalized an understanding of the instructions at this time and agreed to be an active participant in their treatment. If the patient should think of any questions or concerns after the visit, I have encouraged the patient to call the office.?Digital Treatment:?HV - I explained to the patient the risks/benefits of all the different treatment options for their pain including: No treatment at all, Rest, Ice, New/supportive/wider/deeper Shoegear, Digital Padding/Strapping/Taping/Bracing/Gel protective sleeves, Foot/Ankle AFO Bracing, Stretching exercises, Deep Tissue Massage, Arch support/shoe inserts with splay metatarsal padding, and Custom orthoses. I insisted that any digital devices be removed daily and not worn overnight for safety. The patient is to carefully examine the toes daily for any skin irritation while using any splinting or padding device. The advantages and disadvantages of each option were discussed and the patients questions re: shoegear, padding, custom vs prefabricated inserts, activity level, and consistency in home treatment regimens for optimal success were answered to their verbally confirmed satisfaction, Recomm, rest, ice, proper shoegear, padding, orthotics, anti-inflammatories or tylenol as tolerated, topical analgesics, cortisone injections.?Discussion for Bunion sx:?Several different types of Bunion surgeries were discussed with the patient, including, but not limited to: Modified Castaneda bone removal and soft tissue release/realignment, Ricardo osteotomy with soft tissue release/realignment and internal fixation, Shaft v Base wedge osteotomies with internal fixation, and Lapidus joint fusion procedures with internal fixation. We discussed the risks of having surgery (described below) vs not having surgery (persistent pain, deformity, risk for skin ulceration/infection, loss of toe) as well as the potential surgical complications including, but not limited to: pain, swelling, bleeding, scarring, numbness, infection, delayed/non healing, floppy/unstable/shorthened toe, recurrence, failure of the procedure, overcorrection leading to plantarflexed/downward/upward positioned toe, recurrence, need for further surgery, as well as the possibility for loss of the toe itself. We discussed the use of IV/Local regional anesthesia, and the usual post-op course for healing. No guarentees were given. The patient verbally indicated a full understanding of the above conversation, and any other of their questions were answered to their satisfaction, Discussed and reviewed the X-rays with the patient. We discussed how the findings relate to the patients symptoms/complaints. Answered any and all questions., Recomm, rest, ice, proper shoegear, padding, orthotics, anti-inflammatories or tylenol as tolerated, topical analgesics, cortisone injections.?Shoe Gear Counseling:?The patient and I reviewed the types of shoes they should be wearing. My recommendation included obtaining a well-fitted shoe with a good supportive, non-foldable nor twistable sole, plenty of toe/room for the forefoot, and proper arch support. Based on todays examination, I recommended the patient look for new shoes, by having their feet professionally measured. We discussed that generally the best time of the day for a shoe fitting is the afternoon. Different shoes types and brands to best match the patients occupation and vocation were discussed. Specific brand selection will be up to the patient, their individual foot condition/deformities, and fit. The patient and I reviewed the standard new shoe break in period by wearing them for a few hours a day while checking for redness or sores as wear time is increased. The patient verbally confirmed to understanding the information discussed, Recommend supportive running shoes for patient, discussed various shoe brands including Frye, Asics, New Balance, [employer]. Discussed types of shoes to avoid for patients foot type..? * Follow Up:?prn * Images: * Sign off status: Completed true * Provider:?Leticia Martin DPM Date:?2023 Generated for Angelique fish/Shavon/Rick on:?11/11/2024 10:32 AM EST History and Physical Notes * HPI (History of Present Illness) Category Sub-Category Detail Notes Category Not es Foot Pain Nature: burning Location: Inside, Great toe keven int, RIGHT Duration: , several months Onset: gradual Course: worse Aggravated: any pressure Treatments: rest/alter normal da ann activity Severity/Quality: moderate Examination Category Sub-Category Detail Notes Category Not es Neurological TINEL'S COMPRESSION: Negative, S aphenous nerve distribution, Right Dermatologic SKIN FINDINGS: Skin exam reveal s Keratotic lesion(s) located at, IPJ, Medial plantar, TA, T5 Orthopedic GAIT ABNORMALITY: Pronated, flex or stabilization noted, abducted angle and base of gate, B/L FOOT MORPHOLOGY: Pes Planus structure , Semi-flexible, B/L BUNION: Medially prominent 1 st MPJ, (+) Pain on palpation, inflammation present medially, Lateral tracking 1st MPJ incompletely reducible, RIGHT,ROM 1st MPJ full,and without pain, or crepitus DIGITAL DEFORMITIES: Digital contracture , PIPJ, 2-5 B/L, incompl-reducible with WB, or to push-up test, no over, nor underlapping TAILOR'S BUNION: Prominent 5th MTH/MP J, B/L MUSCLE STRENGTH: 5/5 all groups in a symmetrical fashion, B/L General Examination GENERAL APPEARANCE: Reveals a pleasant, alert, well nourished, well-developed, well hydrated individual, who demonstrates proper attention to hygiene/body habitus, and is in no acute distress, Pt serves as own historian for office visit today ORIENTED: person, place, and t pattie Vascular DP PULSES (B): 2/4, B/L PT PULSES (B): 2/4, B/L CAPILLARY FILL TIME: immediate, all digi ts, B/L TEMPERTURE GRADIENT (C): normal, warm to cool, proximal to distal, B/L, B/L TROPHIC CONDITION-TEXTURE/ELASTICITY/TURGOR/HAIR GROWTH (B): normal, B/L EDEMA (C): absent, B/L PIGMENTATION: normal, B/L X-Rays - IMAGING REPORT Findings: normal b one and soft tissue density consistent for patients age and sex, dorsal degenerative changes of the tarsal joints Fracture: Negative fractures i dentified HAV: increased First Inte rmetatarsal angle and Hallux Abductus angle consistent with Bunion deformity noted, hypertrophy of the dorsal and medial 1st MTH without subchondral cyst Views: AP, LAT, MO, RIGHT T aken by trained Podiatric Guest Services Representative ( MB) Clinical Indication(s): Evaluate Biomech anical Deformity
[2024-11-11 14:48] LABS: Influenza A PCR NEGATIVE (Negative); Influenza B PCR NEGATIVE (Negative); Resp Syncy Virus RNA Qual PCR NEGATIVE (Negative); SARS COV2 PCR INHOUSE NEGATIVE (Negative)
== END 2024-11-11 10:24 | disposition home or self-care (01) ==
PROVIDERS: PCP Internal Medicine; Visit Provider Physician Assistant
DX: J02.9 Acute pharyngitis, unspecified (principal); Z13.9 Encounter for screening, unspecified

== ENCOUNTER → 2024-11-11 09:28 | Outpatient (BNVA) | payer MEDICARE, SELFPAY | PROVIDERS: PCP Internal Medicine; Visit Provider Physician Assistant | DX: J02.9 Acute pharyngitis, unspecified (principal) | CPT/HCPCS: 0241U; 87880; 99212 ==

== ENCOUNTER 2024-11-12 14:49 | Outpatient (AMB) | payer MEDICARE, SELFPAY ==
--- NOTE | 2024-11-12 15:00 | MHC.OFFWIV ---
Intake Vital Signs 11/12/24 15:02 Height 5 ft 1 in BP 120/80 Blood Pressure Location Lt brachial Position Sitting Pulse 83 Pulse Source Pulse Oximeter Temp 98.6 F Temp Source Oral Pulse Oximetry (%) 97 Intake Visit Reasons: EP Eye Irritation Patient Tobacco Use Status: Never used Tobacco Allergies nitrofurantoin [Macrodantin] Allergy (Unknown, Verified 11/12/24 15:03) Unknown Medication List - Last Reconciled 11/12/24 by Bhavani Olmos MD acetaminophen ER (Tylenol Arthritis Pain) 650 - 1,300 mg (1 - 2 x 650 mg) PO Q12H PRN calcium carbonate (Calcium 600) 600 mg PO BID famotidine (Pepcid) 40 mg PO BEDTIME PRN naproxen sodium (Aleve) 220 mg PO BID PRN HPI EP Eye Irritation HPI Details Patient is 69-year-old female came today to be evaluated red eyes Patient says the symptoms started yesterday and this morning she woke up with crusting left more than right eye Eyes feels like burning and are weeping She has been having upper respiratory tract symptoms as well Coughing up grayish clear phlegm There is no fever no chills no shortness a breath no chest pain no nausea no vomiting I have sent Polytrim eyedrops patient is to start as soon as possible If there is no improvement within 24-48 hours patient is to either come back or see primary care Preferably if she has eye doctor book appointment follow up with them [facility] Medical History Ovarian cancer Right shoulder pain Osteopenia after menopause Primary osteoarthritis of hands, bilateral PONV (postoperative nausea and vomiting) Hx of cancer of endometrium Arthritis Osteopenia Surgical History Hx of colonoscopy History of total hysterectomy with bilateral salpingo-oophorectomy (BSO) Family History Father No problems noted. 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 Review of Systems Const All systems reviewed & are unremarkable except as noted in HPI and below Physical Exam Vital Signs: Last Vital Signs Temp 98.6 F 11/12/24 15:02 Pulse 83 11/12/24 15:02 BP 120/80 11/12/24 15:02 Pulse Ox 97 11/12/24 15:02 Const General: no acute distress Orientation/consciousness: patient oriented x3 Eyes Other: Conjunctival injection left more than right, some crusting noticed on eyelashes, no photophobia, COLIN, EOMI Resp Effort & Inspection: normal respiratory effort and able to speak in complete sentences Neuro General: patient oriented x3 Psych Mental Status: mental status grossly normal Assessment & Plan Assessment & Plan (1) Acute conjunctivitis, bilateral: Code(s): H10.33 - Unspecified acute conjunctivitis, bilateral Qualifiers: Acute conjunctivitis type: unspecified Qualified Code(s): H10.33 - Unspecified acute conjunctivitis, bilateral Plan Patient is 69-year-old female came today to be evaluated red eyes Patient says the symptoms started yesterday and this morning she woke up with crusting left more than right eye Eyes feels like burning and are weeping She has been having upper respiratory tract symptoms as well Coughing up grayish clear phlegm There is no fever no chills no shortness a breath no chest pain no nausea no vomiting I have sent Polytrim eyedrops patient is to start as soon as possible If there is no improvement within 24-48 hours patient is to either come back or see primary care Preferably if she has eye doctor book appointment follow up with them Medications: New polymyxin B sulf-trimethoprim 10,000 unit- 1 mg/mL while awake; do not exceed 6 doses in 24 hours 1 drp ophthalmic (eye) QID 10 mL 0RF 5 days Coding Level of Care Code Est Pt Level 3 (14394) Diagnoses Acute conjunctivitis of both eyes, unspecified acute conjunctivitis type H10.33 Acute conjunctivitis type: unspecified
[2024-11-12 15:02] VITALS: BP 120/80; PULSE 83; TEMP 37; O2SAT 97
--- OUTSIDE RECORDS SUMMARY | 2024-11-12 17:54 | XMS_ITS ---
[facility] Organization [facility] Address [address] [place] [address] Care Team Providers Care Loan Collector Name Role Phone Yovana Izaguirre Primary Care Provider Unavailabl e Black, Leticia Unavailable [phone] Allergies Allergen (clinical drug ingredient) Drug/Non Drug [...] 08/13/2024 Encounters Encounter Location Date Provider Diagnosis [address] [address] 08/13/2024 Leticia Black Pain in right foot [...] * Jordana NARANJOOB:[birth year] (69 yo F)Acc No.[id number]:08/13/2024 Progress Note Patient:?Monica NARANJO Provider:?Leticia Martin DPM :1955???Age:69 Y???Sex:Female D ate:08/13/2024 Address:[place], [place] Pcp:Yovana Izaguirre Subjective: * Chief Complaints: * [...] ?Exercise: yes, walking. ?Marital status: . ?Occupation: [employer] , Retired. ???Drug/Alcohol:?AUDIT-C (Standard)?Did you have [...] Biomechanical Deformity.?Views:?AP, LAT, MO, RIGHT??Taken by trained?Podiatric Professor Of Management (?MB).?Findings:?normal bone and soft tissue density consistent [...] - M77.51??? Plan: * Treatment: * Procedure Codes:?31950 X-RAY EXAM OF RIGHT FOOT 3V, Modifiers: [...] Martin DPM Date:?2023 Generated for Angelique fish/Shavon/Rick on:?11/12/2024 05:54 PM EST History and Physical Notes * HPI [...] MO, RIGHT T aken by trained Podiatric Professor Of Management ( MB) Clinical Indication(s): Evaluate Biomech anical Deformity
--- OUTSIDE RECORDS SUMMARY | 2024-11-12 17:55 | XMS_ITS | Patient Health Record ---
[facility] [place] Address [address] [facility] [place] [address] Care Team Providers Care Industrial Roof Plumber Name Role Phone Yovana Izaguirre Primary Care Provider Unavailabl e Black, Leticia Unavailable [phone] Allergies Allergen (clinical drug ingredient) Drug/Non Drug [...] Status Risk Notes Problem Acquired hallux valgus (63002679) Hallux valgus (acquired), left foot (M20.12) Active confirmed Problem Localized, primary osteoarthritis of the ankle and/or foot (662977346) Primary osteoarthrit is, right ankle and foot (M19.071) Active confirmed Problem Acquired hallux valgus (32238488) Hallux valgus (acquired), right foot (M20.11) Active confirmed Problem Acquired hammer toe of right foot (3750866975056903) Other hammer toe(s) (acquired), right foot (M20.41) Active confirmed Problem Acquired hammer toe of left foot (5613162991214522) Other hammer toe(s) (acquired), left foot (M20.42) Active confirmed Vital Signs Height 5ft 1in in 08/13/2024 Weight 128 lbs 08/13/2024 BMI 24.18 kg/m2 08/13/2024 Encounters Encounter Location Date Provider Diagnosis [facility] [address] [address] [place] [address] 08/13/2024 Leticia Black Pain in right foot [...] Treatment Pending Test Test Name Order Date [id number] NAIL, 1-5 11/28/2021 Insurance Providers Payer Name Payer Address Payer Phone Subscriber Number Group Number Insured Name Patient Relationship to Insured Coverage Start Date Coverage End Date [employer] Medicare [id number] [address] [address] [place] [address] [id number] Monica Booker Self - patient is the insured Medical (General) History Medical History History ICD Code Arthritis Cancer Surgical History Surgery Date(Month/Year) hysterectomy, complete 01/08/2013 colonoscopy 2020 Hospitalization History Reason Date(Month/Year) [facility]- Bleeding- GI Dr - ruptured hemorroi ds 11/29
--- OUTSIDE RECORDS SUMMARY | 2024-11-12 17:55 | XMS_ITS | Clinical Summary ---
Author Organization [facility] Address [address] [place] [address] Care Team Providers Care Forest Technology Professor Name Role Phone Unavailable Primary Care Provider [...]
== END 2024-11-12 15:12 | disposition home or self-care (01) ==
PROVIDERS: PCP Internal Medicine; Visit Provider Internal Medicine
DX: H10.33 Unspecified acute conjunctivitis, bilateral (principal)

== ENCOUNTER → 2024-11-12 14:49 | Outpatient (BNVA) | payer MEDICARE, SELFPAY | PROVIDERS: PCP Internal Medicine | DX: H10.33 Unspecified acute conjunctivitis, bilateral (principal) | CPT/HCPCS: 99212 ==

== ENCOUNTER 2025-04-13 10:45 | Day surgery (SDC) | payer MEDICARE, SELFPAY ==
--- OUTSIDE RECORDS SUMMARY | 2025-04-10 10:43 | XMS_ITS | Patient Health Record ---
Author Organization [facility] [place] Address [address] [place] [address] Care Team Providers Care Solid Tire Finisher Name Role Phone Yovana Izaguirre Primary Care Provider Unavailabl e Black, Leticia Unavailable [phone] Allergies Allergen (clinical drug ingredient) Drug/Non Drug [...] Status Risk Notes Problem Acquired hallux valgus (33954834) Hallux valgus (acquired), left foot (M20.12) Active confirmed Problem Localized, primary osteoarthritis of the ankle and/or foot (403641929) Primary osteoarthrit is, right ankle and foot (M19.071) Active confirmed Problem Acquired hallux valgus (63140522) Hallux valgus (acquired), right foot (M20.11) Active confirmed Problem Acquired hammer toe of right foot (1408243068360948) Other hammer toe(s) (acquired), right foot (M20.41) Active confirmed Problem Acquired hammer toe of left foot (8921439167450834) Other hammer toe(s) (acquired), left foot (M20.42) Active confirmed Vital Signs Height 5ft 1in in 08/13/2024 Weight 128 lbs 08/13/2024 BMI 24.18 kg/m2 08/13/2024 Encounters Encounter Location Date Provider Diagnosis [facility] [place] [address] [place] [address] 08/13/2024 Leticia Black Pain in right foot [...] Treatment Pending Test Test Name Order Date [id number] NAIL, 1-5 11/28/2021 Insurance Providers Payer Name Payer Address Payer Phone Subscriber Number Group Number Insured Name Patient Relationship to Insured Coverage Start Date Coverage End Date [employer] Medicare [id number] [address] [address] [place] [address] [id number] Monica Booker Self - patient is the insured Medical (General) History Medical History History ICD Code Arthritis Cancer Surgical History Surgery Date(Month/Year) hysterectomy, complete 01/08/2013 colonoscopy 2020 Hospitalization History Reason Date(Month/Year) [facility]- Bleeding- GI Dr - ruptured hemorroi ds 11/29
--- OUTSIDE RECORDS SUMMARY | 2025-04-10 10:43 | XMS_ITS | Clinical Summary ---
Author Organization [facility] Address [address] [place] [address] Care Team Providers Care Aircraft Avionics Technician Name Role Phone Unavailable Primary Care Provider [...] 2005 Zoster Vaccines (1 of 2) 2005 COVID-19 Vaccine ( - 2023-2 5 season) 2024 Depression Screening 09/10/2024 Influenza Vaccine (#1) 2025 RSV Immunization Adult Patie nts (1 - 1-dose 75+ series) 2030 HIB [...] age to complete this topic Meningococcal B Vaccine Aged Out No l onger eligible based on patient's age to complete this topic RSV Immunization Patients Un bernice 20 months Aged Out No longer eligible b ased on patient's age to complete this topic Varicella Vaccines Aged Out No longer eligible based on patient's age to complete this topic
--- NOTE | 2025-04-10 13:14 | HO.ANESPROP2 ---
Documented by User: Viri New NP 04/10/25 13:16 HPI - Anesthesia Eval Consult details Narrative: 70yo F for Upper Endoscopy and Colonoscopy PMFSH Active Problems Active Problems: All Active Problems Acute conjunctivitis, bilateral (Acute) Pharyngitis (Acute) Acute upper respiratory infection (Acute) GERD (gastroesophageal reflux disease) (Acute) Diarrhea (Acute) MSH6-related Kim syndrome (HNPCC5) (Acute) Right shoulder pain (Acute) Osteopenia after menopause (Acute) Osteoarthritis of lumbar spine (Acute) Spondylolisthesis, lumbar region (Acute) Belle albicans infection (Acute) Acute diarrhea (Acute) Primary osteoarthritis of hands, bilateral (Acute) Colon cancer screening (Acute) Past Medical History Medical History Ovarian cancer Right shoulder pain Osteopenia after menopause Primary osteoarthritis of hands, bilateral PONV (postoperative nausea and vomiting) Hx of cancer of endometrium Arthritis Osteopenia Family History Family History Father No problems noted. 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 Allergies Allergy/AdvReac Type Severity Reaction Status Date / Time nitrofurantoin (Macrodantin) Allergy Unknown Unknown Verified 11/12/24 15:03 Home Medications ?Medication ?Instructions ?Recorded ?Confirmed ?Last Taken ?Type calcium carbonate (Calcium 600) 600 mg PO BID 07/16/20 11/12/24 Unknown History naproxen sodium 220 mg capsule 220 mg PO BID PRN 07/11/24 11/12/24 Unknown History (Aleve) Assessment and Plan Assessment Anesthesia Assessment: Chart Reviewed Documented by User: Janki Ramirez MD 04/13/25 12:38 [facility] Past Medical History Medical History Ovarian cancer Right shoulder pain Osteopenia after menopause Primary osteoarthritis of hands, bilateral PONV (postoperative nausea and vomiting) Hx of cancer of endometrium Arthritis Osteopenia Family History Family History Father No problems noted. 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 Allergies Allergy/AdvReac Type Severity Reaction Status Date / Time nitrofurantoin (Macrodantin) Allergy Unknown Unknown Verified 11/12/24 15:03 Home Medications ?Medication ?Instructions ?Recorded ?Confirmed ?Last Taken ?Type calcium carbonate (Calcium 600) 600 mg PO BID 07/16/20 11/12/24 Unknown History naproxen sodium 220 mg capsule 220 mg PO BID PRN 07/11/24 11/12/24 Unknown History (Aleve) Exam Airway Mallampati Class: II TM Dist: >3cm Neck ROM: Full Loose/Missing/Broken Teeth: No Heart: RRR Lungs: CTA Assessment and Plan Assessment Anesthesia Assessment: Anesthesia Plan Discussed Final Anesthetic Review History of Problems with Anesthesia: No NPO: Yes ASA Class: II Final Preanesthetic Review: Meds/Allgs Chart Reviewed, Consent Obtained/Reviewed and Anes Risks/Benef Reviewed Patient Risk: Low Procedure Risk: Intermediate Anesthetic Plan Anesthetic Plan: MAC: Disposition: Standard PACU
[2025-04-13 11:17] VITALS: BP 185/97; PULSE 98; RESP 18; TEMP 37.5; O2SAT 97; BMI 23.6
[2025-04-13] MEDS: Lactated Ringers 1,000 ML 100 ML IVCONT (11:19)
--- NOTE | 2025-04-13 11:30 | P.HPSUR_ITS ---
Pre-Procedural Eval Section A - 24 Hr Update-Section A only Date of Service: 04/13/25 The patient is an INPATIENT: No Section B - Complete if H&P > 30 days Chief Complaint: gerd,diarrhea, Kim syndrome Relevant Family History (Specify if Yes): Yes Relevant Social History: None Present Medications: see Short Stay Collaborative assessment Medical History: Significant History (Ovarian cancer Right shoulder pain Osteopenia after menopause Primary osteoarthritis of hands, bilateral PONV (postoperative nausea and vomiting) Hx of cancer of endometrium Arthritis Osteopenia) History of Previous Operations: Relevant previous surgery/procedure and date(s) (Hx of colonoscopy History of total hysterectomy with bilateral salpingo- oophorectomy (BSO)) Allergies: Allergies Allergy/AdvReac Type Severity Reaction Status Date / Time nitrofurantoin (Macrodantin) Allergy Unknown Unknown Verified 11/12/24 15:03 Review of Systems Sugical H&P ROS: Negative: Constitution, Cardiovascular, Respiratory and Gastrointestinal Exam Surgical H&P Exam: Normal: Heart, Normal: Lungs, Normal: Extremities and Normal: Abdomen Plan Diagnosis/Plan: Unchanged I have reviewed the history and physical and performed a pertinent physical examination on my patient. No changes have occurred unless specified. Time Spent With Patient Time: Total time managing care of this patient today ____ minutes.
[2025-04-13 13:20] VITALS: BP 123/80; PULSE 78; RESP 18; TEMP 36.7; O2SAT 98
--- NOTE | 2025-04-13 13:22 | HO.OPN-COLON ---
Colonoscopy Operative Note Operative Note Date of Service: 04/13/25 Narrative: FLEXIBLE TRANSORAL UPPER GASTROINTESTINAL ENDOSCOPY WITH BIOPSIES AND COLONOSCOPY TILL CECUM WITH BIOPSIES AND SNARE POLYPECTOMY Pre-op diagnosis: Colon cancer screening, GERD, epigastric pain, diarrhea, Kim syndrome Post-op diagnosis: Gastritis, gastric polyps, Colon Polyp, Diverticulosis. ? Endoscopist:? Allie Medeiros MD Anesthesia:?MAC UPPER ENDOSCOPY Consent: Indications for the procedure and potential complications of bleeding, perforation, reaction to medications and missed diagnosis were discussed with the patient and informed consent was obtained. Instrument: Olympus GIF H 190 mid size upper endoscope Monitoring: Vital signs and clinical assessment, continuous EKG monitoring, Pulse oximetry, Carbon Dioxide monitoring and blood pressure monitoring were done throughout the procedure. Procedure: The patient was placed in the left lateral decubitis position and pre-procedure medications were administered and a bite block was placed. The endoscope was inserted into the mouth and advanced under direct vision to the third part of duodenum. A careful inspection was made as the upper endoscope was withdrawn including a retroflexed examination of the proximal stomach; Findings and interventions are described below. Findings: Larynx: Normal Esophagus: GE junction at 35 cms. Mildly tortuous esophagus without stricture or ring. No esophagitis or Vasquez's. Stomach: A few 5-6 mm benign appearing polyps in the gastric fundus - biopsied. Moderate diffuse gastric erythema - biopsies were obtained from the gastric body and antrum. Grade 2 flap valve on retroflexed examination of the cardia. Duodenum: Normal bulb and descending duodenum Biopsies were obtained from descending duodenum to check for celiac sprue Intervention: Biopsies as noted above COLONOSCOPY PROCEDURE NOTE Instrument: Olympus PCF H 190 L variable stiffness pediatric colonoscope Monitoring: Vital signs and clinical assessment, intermittent blood pressure monitoring, continuous EKG monitoring, Pulse oximetry and Carbon Dioxide monitoring were done throughout the procedure. Please see anesthesia flowsheet. Colon withdrawl time was 20 minutes. Procedure: The patient was placed in the left lateral decubitis position and pre-procedure medications were administered. After a digital rectal examination of the ano-rectum, the video colonoscope was inserted into the rectum and advanced through the colon to the cecum. The colonoscope was slowly withdrawn in a retrograde panoramic fashion and the colon mucosa was carefully examined including a retroflexed view of the rectum. Findings and interventions are described below. Procedure Difficulty: There was narrowing of the sigmoid colon due to severe diverticulosis which was navigated with some difficulty Findings: Terminal Ileum: Not evaluated Cecum: Normal Ascending Colon: A 4-5 mm sessile polyp in the mid ascending colon - removed with a cold snare Transverse Colon: Normal Descending Colon: Moderate diverticulosis Sigmoid Colon: Severe diverticulosis with luminal narrowing Rectum: Normal Ano-rectum: Normal Colon preparation: Good after some irrigation. [place] Bowel Preparation Scale Right colon; 2 Transverse colon: 2 Left colon; 2 (0 = Unprepared colon segment with mucosa not seen due to solid stool that cannot be cleared. 1 = Portion of mucosa of the colon segment seen, but other areas of the colon segment not well seen due to staining, residual stool and/or opaque liquid. 2 = Minor amount of residual staining, small fragments of stool and/or opaque liquid, but mucosa of colon segment seen well. 3 = Entire mucosa of colon segment seen well with no residual staining, small fragments of stool or opaque liquid) Impression and Post Procedure Diagnosis: Endoscopy Findings: ESOPHAGUS: Mildly tortuous esophagus without stricture or ring. STOMACH: Diffuse gastritis and gastric polyps DUODENUM: Normal - biopsied to check for celiac sprue Colonoscopy Findings: One small polyp was removed Random biopsies were obtained from right and left colon to check for microscopic colitis Moderate to severe diverticulosis seen in the left colon Plan: Pt to schedule a FU appointment with Ivette Hankins NP Repeat EGD and Colonoscopy in 2 years if polyps are adenomatous and due to a hx of Kim syndrome. A summary of above findings and relevant handouts were given to the patient. BIOPSIES SHOWED: A. Small bowel, biopsy: Duodenal mucosa with preserved villous architecture and increased intraepithelial lymphocytes (see comment). B. Stomach, antrum, biopsy: Gastric antral mucosa with mild chronic inactive gastritis and features of reactive gastropathy; negative for Helicobacter pylori, intestinal metaplasia and dysplasia. C. Stomach, body, biopsy: Gastric body mucosa within normal limits; negative for Helicobacter pylori, intestinal metaplasia and dysplasia. D. Stomach, polyp, biopsy: Fundic gland polyp. E. Colon, ascending, polypectomy: Tubular adenoma; negative for high-grade dysplasia. F. Colon, random right, biopsy: Colonic mucosa within normal limits; negative for active, chronic or microscopic colitis. G. Colon, random left, biopsy: Colonic mucosa within normal limits; negative for active, chronic or microscopic colitis. COMMENT (A): These findings raise the possibility of celiac disease; however other pathologic processes, including H. pylori gastritis, peptic duodenitis, food allergies other than celiac disease, tropical sprue, viral enteritis, injury caused by drugs, autoimmune enteropathy, immunodeficiencies and Crohn?s disease can induce intraepithelial lymphocytosis with or without associated architectural changes. In many cases no definite cause is identified Letter sent to the patient with biopsy results. Patient was placed on the procedure recall list for repeat EGD and colonoscopy in 2 years.
[2025-04-13 13:35] VITALS: BP 152/81; PULSE 75; RESP 18; TEMP 36.6; O2SAT 98
== END 2025-04-13 14:02 | disposition home or self-care (01) ==
PROVIDERS: Visit Provider Internal Medicine Gastroenterology
PROC: (CPT 45385; principal; 2025-04-13 12:40)
DX: Z12.11 Encounter for screening for malignant neoplasm of colon (principal); D12.2 Benign neoplasm of ascending colon; K56.699 Other intestinal obstruction unspecified as to partial versus complete obstruction; K57.30 Diverticulosis of large intestine without perforation or abscess without bleeding; K21.9 Gastro-esophageal reflux disease without esophagitis; K31.7 Polyp of stomach and duodenum; K22.4 Dyskinesia of esophagus; K29.60 Other gastritis without bleeding; Z15.09 Genetic susceptibility to other malignant neoplasm; C54.1 Malignant neoplasm of endometrium; C79.60 Secondary malignant neoplasm of unspecified ovary; Z90.710 Acquired absence of both cervix and uterus
CPT/HCPCS: 45385; 45380; 43239; 88305; 88313; 88342; J2003; J2704

== ENCOUNTER → 2025-04-13 10:45 | Outpatient (BNV) | payer MEDICARE, SELFPAY | PROVIDERS: Visit Provider Internal Medicine Gastroenterology | DX: Z12.11 Encounter for screening for malignant neoplasm of colon (principal); D12.2 Benign neoplasm of ascending colon; K57.90 Diverticulosis of intestine, part unspecified, without perforation or abscess without bleeding; K21.9 Gastro-esophageal reflux disease without esophagitis; K31.7 Polyp of stomach and duodenum; K29.70 Gastritis, unspecified, without bleeding | CPT/HCPCS: 43239; 45385 ==

== ENCOUNTER 2025-05-07 15:30 | Outpatient (AMB) | payer MEDICARE, SELFPAY ==
--- OUTSIDE RECORDS SUMMARY | 2025-05-07 15:59 | XMS_ITS | Patient Health Record ---
Author [facility] [place] Address [address] [place] [address] Care Team Providers Care Treatment Technician Name Role Phone Yovana Izaguirre Primary Care Provider Unavailabl e Black, Leticia Unavailable [phone] Allergies Allergen (clinical drug ingredient) Drug/Non Drug [...] Status Risk Notes Problem Acquired hallux valgus (49213870) Hallux valgus (acquired), left foot (M20.12) Active confirmed Problem Localized, primary osteoarthritis of the ankle and/or foot (501390032) Primary osteoarthrit is, right ankle and foot (M19.071) Active confirmed Problem Acquired hallux valgus (97154091) Hallux valgus (acquired), right foot (M20.11) Active confirmed Problem Acquired hammer toe of right foot (1044564706208578) Other hammer toe(s) (acquired), right foot (M20.41) Active confirmed Problem Acquired hammer toe of left foot (9719122767422706) Other hammer toe(s) (acquired), left foot (M20.42) Active confirmed Vital Signs Height 5ft 1in in 08/13/2024 Weight 128 lbs 08/13/2024 BMI 24.18 kg/m2 08/13/2024 Encounters Encounter Location Date Provider Diagnosis [facility] [place] [address] [place] [address] 08/13/2024 Leticia Black Pain in right foot [...] Treatment Pending Test Test Name Order Date [id number] NAIL, 1-5 11/28/2021 Insurance Providers Payer Name Payer Address Payer Phone Subscriber Number Group Number Insured Name Patient Relationship to Insured Coverage Start Date Coverage End Date [employer] Medicare [id number] [address] [address] [place] [address] [id number] Monica Booker Self - patient is the insured Medical (General) History Medical History History ICD Code Arthritis Cancer Surgical History Surgery Date(Month/Year) hysterectomy, complete 01/08/2013 colonoscopy 2020 Hospitalization History Reason Date(Month/Year) [facility]- Bleeding- GI Dr - ruptured hemorroi ds 11/29
--- OUTSIDE RECORDS SUMMARY | 2025-05-07 15:59 | XMS_ITS | Clinical Summary ---
Author Organization [facility] Address [address] [place] [address] Care Team Providers Care Neck Cutter Name Role Phone Unavailable Primary Care Provider [...]
[2025-05-07 16:20] VITALS: BP 120/80; PULSE 76; TEMP 36.9; O2SAT 97; BMI 24.2
--- NOTE | 2025-05-07 16:20 | MHC.OFFWIV ---
Intake Vital Signs 05/07/25 16:20 Height 5 ft 1 in Weight 128 lb 2 oz BMI 24.2 BP 120/80 Blood Pressure Location Lt brachial Position Sitting Pulse 76 Pulse Source Pulse Oximeter Temp 98.5 F Temp Source Oral Pulse Oximetry (%) 97 Intake Visit Reasons: EP bee sting continuously getting worse Patient Tobacco Use Status: Never used Tobacco Allergies nitrofurantoin (Macrodantin) Allergy (Unknown, Verified 05/07/25 16:21) Unknown Do you need a note to return to daycare/school/sports/work: No HPI HPI Comments History of Present Illness Details History of Present Illness - The patient is a 70-year-old female presenting with a bee sting reaction on the side of the left hand. - The bee sting occurred yesterday morning, leading to increasing itchiness and swelling. - The patient has not taken any Benadryl but has used a topical cream for itchiness without significant relief. - The patient takes Pepcid regularly at night - The patient was advised to monitor the reaction for 72 hours and natalie the area to track any progression of redness. - No shortness of breath, no trouble breathing. Physical Exam General: Cooperative, healthy appearing, comfortable, no acute distress and well developed Orientation: Patient oriented x3 Limitations: No limitations Head: Normal to inspection Ears: Hearing grossly normal bilaterally Nose: Normal External nose present Face and sinus: Normal facial exam Eyes: Appearance normal, both eyes and all related structures Neck: Normal visual inspection and Yes full ROM Respiratory: Normal respiratory effort and able to speak in complete sentences. Skin: as below Neuro: Patient oriented x3 Extremities: Normal to inspection except for left lateral hand with pinpoint and surrounding erythema, warmth and edema extending to the 3rd MCP and dorsal aspect of hand. NVI and full ROM left hand [facility] Medical History Ovarian cancer Right shoulder pain Osteopenia after menopause Primary osteoarthritis of hands, bilateral PONV (postoperative nausea and vomiting) Hx of cancer of endometrium Arthritis Osteopenia Surgical History Hx of colonoscopy History of total hysterectomy with bilateral salpingo-oophorectomy (BSO) Family History Father No problems noted. 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 Review of Systems Const All systems reviewed & are unremarkable except as noted in HPI and below Physical Exam Vital Signs: Last Vital Signs Temp 98.5 F 05/07/25 16:20 Pulse 76 05/07/25 16:20 BP 120/80 05/07/25 16:20 Pulse Ox 97 05/07/25 16:20 BMI result Body Mass Index 24.2 Assessment & Plan Assessment & Plan (1) Bee sting reaction: Code(s): T63.441A - Toxic effect of venom of bees, accidental (unintentional), initial encounter Qualifiers: Encounter type: initial encounter Injury intent: accidental or unintentional Qualified Code(s): T63.441A - Toxic effect of venom of bees, accidental (unintentional), initial encounter Plan: Patient was informed and verbally consented to the use of an ambient scribe for clinic note documentation during this visit. 1. Bee Sting Reaction - Start Benadryl or allergy medication. - Continue Pepcid and apply hydrocortisone cream. - Use ice to manage symptoms and monitor for 72 hours, if edema and erythema worsen after 72 hours, then it could be a cellulitis and she should go to a walk in center or urgent care. - Seek further care if symptoms persist or worsen. 2. Possible Cellulitis - Monitor for infection signs beyond 72 hours. - Seek medical attention if symptoms worsen. Coding Level of Care Code New Pt Level 3 (43591) Diagnoses Bee sting reaction, accidental or unintentional, initial encounter T63.441A Encounter type: initial encounter Injury intent: accidental or unintentional
== END 2025-05-07 16:54 | disposition home or self-care (01) ==
PROVIDERS: PCP Internal Medicine; Visit Provider Physician Assistant
DX: T63.441A Toxic effect of venom of bees, accidental (unintentional), initial encounter (principal)

== ENCOUNTER → 2025-05-07 15:30 | Outpatient (BNVA) | payer MEDICARE, SELFPAY | PROVIDERS: PCP Internal Medicine; Visit Provider Physician Assistant | DX: T63.411A Toxic effect of venom of centipedes and venomous millipedes, accidental (unintentional), initial encounter (principal) | CPT/HCPCS: 99202 ==

== ENCOUNTER 2025-05-12 09:00 | Outpatient (AMB) | payer MEDICARE, SELFPAY ==
[2025-05-12 09:03] VITALS: BP 170/86; PULSE 85; BMI 24.2
--- NOTE | 2025-05-12 09:03 | MHC.OFFVIS ---
Vital Signs 05/12/25 09:03 Height 5 ft 1 in Weight 128 lb 4.944 oz BMI 24.2 BP 170/86 H Blood Pressure Location Rt brachial Position Sitting Pulse 85 Intake Visit Reasons: Post op Intake Note: Monica presents in office today s/p colonoscopy and EGD. CC: Patient reports doing well. Nurse Assistant Required: No Accompanied by: Self / Same As Patient Allergies nitrofurantoin (Macrodantin) Allergy (Unknown, Verified 05/12/25 09:07) Unknown HPI HPI Post op: Details: AAssessment & Plan (1) MSH6-related Kim syndrome (HNPCC5): Comment: genetic testing results in chart Code(s): Z15.09 - Genetic susceptibility to other malignant neoplasm Category: Medical (2) Diarrhea: Code(s): R19.7 - Diarrhea, unspecified Category: Medical (3) GERD (gastroesophageal reflux disease): Code(s): K21.9 - Gastro-esophageal reflux disease without esophagitis Category: Medical Plan PATIENT HAS BEEN LOST TO FOLLOW-UP SINCE 02/2022 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 Monica also had genetic testing showing Kim syndrome. She also had the genetic testing showing Kim. she has some bowel variability with normal alt with looser stools and some bowel urgency. Her dtr has been dx'ed with Celiac recently. Will get TTGA and RASST to try to address this. She also suffers GERD and HB with spicy foods. She denies any cardiac or respiratory problems. There are no prior problems with anesthesia or sedation. NO ID She has had negative scopes in past last in 2019. Orders: Orders Rast Allergen 07/11/24 R19.7 - Diarrhea, unspecified Transglutaminase IgA 07/11/24 R19.7 - Diarrhea, unspecified Transglutaminase Ab IgG 07/11/24 R19.7 - Diarrhea, unspecified EGD/[place] [facility]bo - GI Use Only 07/11/24 Z15.09 - Genetic susceptibility to other malignant neoplasm Medications: New famotidine (Pepcid) 40 mg PO BEDTIME PRN 30 tabs 3RF heartburn K21.9 - Gastro-esophageal reflux disease without esophagitis peg 3350-electrolytes 236-22.74-6.74 -5.86 gram (Golytely) until fecal effluent is clear; do not exceed a total volume of 2,000 mL 240 mL PO Q10M 4,000 mL 0RF 1 day Z12.11 - Encounter for screening for malignant neoplasm of colon bisacodyl (Dulcolax (bisacodyl)) 10 mg (2 x 5 mg) PO BEDTIME 4 tabs 0RF 2 days EGD/COLONOSCOPY 04/13/2025 Findings: Larynx: Normal Esophagus: GE junction at 35 cms. Mildly tortuous esophagus without stricture or ring. No esophagitis or Vasquez's. Stomach: A few 5-6 mm benign appearing polyps in the gastric fundus - biopsied. Moderate diffuse gastric erythema - biopsies were obtained from the gastric body and antrum. Grade 2 flap valve on retroflexed examination of the cardia. Duodenum: Normal bulb and descending duodenum Biopsies were obtained from descending duodenum to check for celiac sprue Findings: Terminal Ileum: Not evaluated Cecum: Normal Ascending Colon: A 4-5 mm sessile polyp in the mid ascending colon - removed with a cold snare Transverse Colon: Normal Descending Colon: Moderate diverticulosis Sigmoid Colon: Severe diverticulosis with luminal narrowing Rectum: Normal Ano-rectum: Normal Impression and Post Procedure Diagnosis: Endoscopy Findings: ESOPHAGUS: Mildly tortuous esophagus without stricture or ring. STOMACH: Diffuse gastritis and gastric polyps DUODENUM: Normal - biopsied to check for celiac sprue Colonoscopy Findings: One small polyp was removed Random biopsies were obtained from right and left colon to check for microscopic colitis Moderate to severe diverticulosis seen in the left colon Plan: Pt to schedule a FU appointment with Ivette Hankins NP Repeat EGD and Colonoscopy in 2 years if polyps are adenomatous and due to a hx of Kim syndrome. A summary of above findings and relevant handouts were given to the patient. BIOPSIES SHOWED: A. Small bowel, biopsy: Duodenal mucosa with preserved villous architecture and increased intraepithelial lymphocytes (see comment). B. Stomach, antrum, biopsy: Gastric antral mucosa with mild chronic inactive gastritis and features of reactive gastropathy; negative for Helicobacter pylori, intestinal metaplasia and dysplasia. C. Stomach, body, biopsy: Gastric body mucosa within normal limits; negative for Helicobacter pylori, intestinal metaplasia and dysplasia. D. Stomach, polyp, biopsy: Fundic gland polyp. E. Colon, ascending, polypectomy: Tubular adenoma; negative for high-grade dysplasia. F. Colon, random right, biopsy: Colonic mucosa within normal limits; negative for active, chronic or microscopic colitis. G. Colon, random left, biopsy: Colonic mucosa within normal limits; negative for active, chronic or microscopic colitis. COMMENT (A): These findings raise the possibility of celiac disease; however other pathologic processes, including H. pylori gastritis, peptic duodenitis, food allergies other than celiac disease, tropical sprue, viral enteritis, injury caused by drugs, autoimmune enteropathy, immunodeficiencies and Crohn?s disease can induce intraepithelial lymphocytosis with or without associated architectural changes. In many cases no definite cause is identified TODAY'S VISIT She did not like go lytely, she had Miralax and this was better but still quite severe for her causing canker sores. she was not done with BM's and feared incontinence coming in for the procedure. [facility] Medical History (Updated 05/12/25 @ 09:35 by JEANNE Morales) Colon cancer screening Right shoulder pain Osteopenia after menopause Primary osteoarthritis of hands, bilateral PONV (postoperative nausea and vomiting) Hx of cancer of endometrium Arthritis Osteopenia Surgical History (Updated 05/12/25 @ 09:15 by LARA Don) Hx of colonoscopy History of total hysterectomy with bilateral salpingo-oophorectomy (BSO) Family History Father No problems noted. 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 Review of Systems Const Denies fatigue, Denies fever(s), Denies night sweats, Denies poor appetite and Denies weight loss Eyes Details: glasses Reports requires corrective lenses ENT Reports Normal hearing present, Denies dental pain, Denies dysphagia, Denies hearing loss, Denies mouth pain, Denies odynophagia, Denies throat swelling, Denies tongue swelling and Reports other (Dentition adequate) Card Reports no additional complaints Resp Reports no additional complaints GI Details: Denies abdominal pain, Denies melena, Denies bloating, Denies hematochezia, Denies constipation, Denies GI cramping, Denies dysphagia, Denies excessive flatus, Denies early satiety, Reports heartburn, Denies diarrhea, Denies nausea, Denies odynophagia, Denies vomiting and Denies hematemesis Skin/Breast Denies pruritus, Denies lesions, Denies rash and Denies jaundice Neuro Reports Normal hearing present and Denies Abnormal speech present Endo Denies fatigue Aller/Immun Denies throat swelling and Denies tongue swelling Physical Exam Vital Signs: Last Vital Signs Pulse 85 05/12/25 09:03 BP 170/86 H 05/12/25 09:03 BMI result Body Mass Index 24.2 Const General: cooperative, no acute distress, well developed and well groomed Nutritional Appearance: average body habitus and well nourished Orientation/consciousness: oriented to person, oriented to place and oriented to time Limitations: No language barrier HEENT Head: Yes normocephalic and Yes atraumatic Eyes General: appearance normal, both eyes and all related structures Pupils: Equal, round and reactive pupils present Neck Neck: Yes normal visual inspection and Yes no lymphadenopathy Thyroid: Thyroid normal Resp Effort & Inspection: normal respiratory effort and able to speak in complete sentences Auscultation: clear to auscultation bilaterally Cardio Rate: regular rate Rhythm: regular rhythm Heart sounds: Normal, physiologic split S2 sound present Peripheral pulses: radial pulses present and posterior tibial pulses present GI Inspection: No distended and No Abdominal panniculus present Palpation (GI): Soft to palpation, nontender, no guarding, not rigid and No hepatosplenomegaly present Percussion: Yes normal to percussion Auscultation: normal bowel sounds Rectal Exam - Female: deferred Skin General skin exam: no rashes or lesions noted, turgor normal, skin not dry, no jaundice, No spider nevi and no striae Rashes: no rashes Nails: normal Neuro General: oriented to person, oriented to place and oriented to time Cranial nerves: Yes Equal, round and reactive pupils present and Yes Normal hearing present Speech: No Abnormal speech present Extrem General: Yes normal to inspection, No clubbing, No cyanosis and No edema Psych Appearance: grossly normal and well kempt Mental Status: mental status grossly normal Speech and movement: Normal speech and movement present Affect: normal affect Attitude: cooperative Thought process: Normal thought process present and not confabulating Thought content: Normal thought content present Insight: Fair insight present (Psych) Judgement: Fair judgement present (Psych) Results Reviewed Results Reviewed: Laboratory Tests 07/11/24 14:16 Tiss Transglutamin IgG <1.0 Tiss Transglutamin IgA <1.0 RAST panel was negative for any significant food allergies EGD/COLONOSCOPY 04/13/2025 Findings: Larynx: Normal Esophagus: GE junction at 35 cms. Mildly tortuous esophagus without stricture or ring. No esophagitis or Vasquez's. Stomach: A few 5-6 mm benign appearing polyps in the gastric fundus - biopsied. Moderate diffuse gastric erythema - biopsies were obtained from the gastric body and antrum. Grade 2 flap valve on retroflexed examination of the cardia. Duodenum: Normal bulb and descending duodenum Biopsies were obtained from descending duodenum to check for celiac sprue Findings: Terminal Ileum: Not evaluated Cecum: Normal Ascending Colon: A 4-5 mm sessile polyp in the mid ascending colon - removed with a cold snare Transverse Colon: Normal Descending Colon: Moderate diverticulosis Sigmoid Colon: Severe diverticulosis with luminal narrowing Rectum: Normal Ano-rectum: Normal Impression and Post Procedure Diagnosis: Endoscopy Findings: ESOPHAGUS: Mildly tortuous esophagus without stricture or ring. STOMACH: Diffuse gastritis and gastric polyps DUODENUM: Normal - biopsied to check for celiac sprue Colonoscopy Findings: One small polyp was removed Random biopsies were obtained from right and left colon to check for microscopic colitis Moderate to severe diverticulosis seen in the left colon Plan: Pt to schedule a FU appointment with Ivette Hankins NP Repeat EGD and Colonoscopy in 2 years if polyps are adenomatous and due to a hx of Kim syndrome. A summary of above findings and relevant handouts were given to the patient. BIOPSIES SHOWED: A. Small bowel, biopsy: Duodenal mucosa with preserved villous architecture and increased intraepithelial lymphocytes (see comment). B. Stomach, antrum, biopsy: Gastric antral mucosa with mild chronic inactive gastritis and features of reactive gastropathy; negative for Helicobacter pylori, intestinal metaplasia and dysplasia. C. Stomach, body, biopsy: Gastric body mucosa within normal limits; negative for Helicobacter pylori, intestinal metaplasia and dysplasia. D. Stomach, polyp, biopsy: Fundic gland polyp. E. Colon, ascending, polypectomy: Tubular adenoma; negative for high-grade dysplasia. F. Colon, random right, biopsy: Colonic mucosa within normal limits; negative for active, chronic or microscopic colitis. G. Colon, random left, biopsy: Colonic mucosa within normal limits; negative for active, chronic or microscopic colitis. COMMENT (A): These findings raise the possibility of celiac disease; however other pathologic processes, including H. pylori gastritis, peptic duodenitis, food allergies other than celiac disease, tropical sprue, viral enteritis, injury caused by drugs, autoimmune enteropathy, immunodeficiencies and Crohn?s disease can induce intraepithelial lymphocytosis with or without associated architectural changes. In many cases no definite cause is identified Assessment & Plan Assessment & Plan (1) Diarrhea: Code(s): R19.7 - Diarrhea, unspecified Category: Medical (2) GERD (gastroesophageal reflux disease): Code(s): K21.9 - Gastro-esophageal reflux disease without esophagitis Category: Medical (3) Tubular adenoma of colon: Comment: 2024 scope= 1 TA repeat in 2 years Code(s): D12.6 - Benign neoplasm of colon, unspecified Category: Medical Plan She did not like go lytely, she had Miralax and this was better but still quite severe for her causing canker sores. she was not done with BM's and feared incontinence coming in for the procedure. Since the procedure her bowel movements have been formed and normal which is happy about. I let her know about the increased lymphocytes as this is of uncertain contribution to her prior episodes of loose stools and irritable bowel. She is agreeable to 2 year follow-up. The procedure was well tolerated. The results were explained and the patient is agreeable to the follow-up interval as stated. The bowel pattern has returned to normal. Education was provided to tell any 1st degree relatives about their findings to be sure that they are screened by age 45. Educated that they will be put on a recall list when it is time for their repeat scope but should they move out of state or away from the hospital they will need to remember along with their primary to repeat the procedure in a timely fashion to avoid any adverse complications. Her GERD remains well controlled with as needed famotidine. We will have her follow-up in 1 year for prescribing reasons unless her primary care office to take over the prescribing process. RAST panel was negative for significant food allergies, tissue transglutaminase was also negative. She is reassured that despite her significant diverticulosis she does not not need to change her diet significantly since she has never had trouble with diverticulitis. I say this because she was doing a lot of Googling and was very concerned and was getting confused between diverticulosis and diverticulitis symptoms. - Tests and Diagnostics: - Polyp identified and excised from the ascending colon was diagnosed as a true polyp. - Stomach polyps biopsied and determined benign. - Small bowel biopsy showed increased lymphocytes indicating possible mild celiac or allergy reaction. Return office visit in 1 year Coding Level of Care Code Est Pt Level 4 (50371) Diagnoses Diarrhea R19.7 GERD (gastroesophageal reflux disease) K21.9 Tubular adenoma of colon D12.6 Time Spent (min) 33
--- OUTSIDE RECORDS SUMMARY | 2025-05-12 09:49 | XMS_ITS | Patient Health Record ---
[facility] [place] Address [address] [place] [address] Care Team Providers Care Director Field Services Name Role Phone Yovana Izaguirre Primary Care Provider Unavailabl e Black, Leticia Unavailable [phone] Allergies Allergen (clinical drug ingredient) Drug/Non Drug [...] Status Risk Notes Problem Acquired hallux valgus (53618805) Hallux valgus (acquired), left foot (M20.12) Active confirmed Problem Localized, primary osteoarthritis of the ankle and/or foot (671400725) Primary osteoarthrit is, right ankle and foot (M19.071) Active confirmed Problem Acquired hallux valgus (23500318) Hallux valgus (acquired), right foot (M20.11) Active confirmed Problem Acquired hammer toe of right foot (6403852332524754) Other hammer toe(s) (acquired), right foot (M20.41) Active confirmed Problem Acquired hammer toe of left foot (8830796317772109) Other hammer toe(s) (acquired), left foot (M20.42) Active confirmed Vital Signs Height 5ft 1in in 08/13/2024 Weight 128 lbs 08/13/2024 BMI 24.18 kg/m2 08/13/2024 Encounters Encounter Location Date Provider Diagnosis [facility] [address] [place] [address] 08/13/2024 Leticia Black Pain in right foot [...] Treatment Pending Test Test Name Order Date [id number] NAIL, 1-5 11/28/2021 Insurance Providers Payer Name Payer Address Payer Phone Subscriber Number Group Number Insured Name Patient Relationship to Insured Coverage Start Date Coverage End Date [employer] Medicare [id number] [address] [address] [place] [address] [id number] Monica Booker Self - patient is the insured Medical (General) History Medical History History ICD Code Arthritis Cancer Surgical History Surgery Date(Month/Year) hysterectomy, complete 01/08/2013 colonoscopy 2020 Hospitalization History Reason Date(Month/Year) [facility]- Bleeding- GI Dr - ruptured hemorroi ds 11/29
--- OUTSIDE RECORDS SUMMARY | 2025-05-12 09:49 | XMS_ITS | Clinical Summary ---
Author Organization [facility] Address [address] [place] [address] Care Team Providers Care First Press Operator Name Role Phone Unavailable Primary Care [...] 2005 Zoster Vaccines (1 of 2) 2005 Depression Screening 09/10/2024 COVID-19 Vaccine (1 - 2023-2 5 season) 2025 Influenza Vaccine (#1) 2025 RSV Immunization Adult [...]
== END 2025-05-12 09:45 | disposition home or self-care (01) ==
LOC: HO.HGI 09:01
PROVIDERS: Visit Provider Nurse Practitioner
DX: R19.7 Diarrhea, unspecified (principal); K21.9 Gastro-esophageal reflux disease without esophagitis; D12.6 Benign neoplasm of colon, unspecified
CPT/HCPCS: 99214

== ENCOUNTER → 2025-05-12 09:00 | Outpatient (BNVA) | payer MEDICARE, SELFPAY | PROVIDERS: Visit Provider Nurse Practitioner | DX: Z15.09 Genetic susceptibility to other malignant neoplasm (principal); R19.7 Diarrhea, unspecified; K21.9 Gastro-esophageal reflux disease without esophagitis; D12.6 Benign neoplasm of colon, unspecified; Z98.890 Other specified postprocedural states | CPT/HCPCS: 99212 ==

== ENCOUNTER 2025-05-20 09:31 | Outpatient (AMB) | payer MEDICARE, SELFPAY ==
[2025-05-20 10:20] VITALS: BP 126/80; PULSE 86; TEMP 36.7; O2SAT 97; BMI 24.2
--- NOTE | 2025-05-20 10:20 | MHC.OFFWIV ---
Intake Vital Signs 05/20/25 10:20 Height 5 ft 1 in Weight 128 lb BMI 24.2 BP 126/80 Blood Pressure Location Lt brachial Position Sitting Pulse 86 Pulse Source Pulse Oximeter Temp 98.0 F Temp Source Oral Pulse Oximetry (%) 97 Oxygen Delivery Method Room Air Intake Visit Reasons: ep swollen left eye/ pain in eye Intake Note: pt presents with left eye swelling, tenderness and redness for a few days Patient Tobacco Use Status: Never used Tobacco Allergies nitrofurantoin (Macrodantin) Allergy (Unknown, Verified 05/20/25 10:23) Unknown Do you need a note to return to daycare/school/sports/work: No HPI HPI Comments History of Present Illness Details History of Present Illness - The patient is a 70-year-old female presenting with a painful left eye. - The issue began approximately four days ago, with the patient noticing a puncture-like sensation upon waking. - The patient reports that the condition has progressively worsened, with increasing redness and swelling at the left lower eyelid. - There is no discharge or pus present, but the area is itchy. - The patient has a past history of conjunctivitis, which occurred months ago. - She has no tearing or redness to the eye. - She denies blurry or double vision. Physical Exam General: Cooperative, healthy appearing, comfortable, no acute distress and well developed Orientation: Patient oriented x3 Limitations: No limitations Eyes: Appearance normal, both eyes and all related structures except for raised erythematous bump on the left eyelid with swelling and redness at the canthus, no discharge or pus noted. Neck: Normal visual inspection and Yes full ROM. No lymphadenopathy noted. Respiratory: Normal respiratory effort and able to speak in complete sentences. Clear to auscultation bilaterally Cardiovascular: Regular rate and rhythm. Normal S1 and S2 Skin: No rashes or lesions noted Patient was informed and verbally consented to the use of an ambient scribe for clinic note documentation during this visit. [facility] Medical History (Updated 05/12/25 @ 09:35 by JEANNE Morales) Colon cancer screening Right shoulder pain Osteopenia after menopause Primary osteoarthritis of hands, bilateral PONV (postoperative nausea and vomiting) Hx of cancer of endometrium Arthritis Osteopenia Surgical History (Updated 05/12/25 @ 09:15 by Everardo Davidson [facility]) Hx of colonoscopy History of total hysterectomy with bilateral salpingo-oophorectomy (BSO) Family History Father No problems noted. Mother Asthma Maternal Aunt Diabetes Sister Ovarian cancer Social History Alcohol intake: current Alcohol intake frequency: holidays/special occasions only Patient Tobacco Use Status: Never used Tobacco Current occupational status: retired Current occupation: former [employer] Review of Systems Const All systems reviewed & are unremarkable except as noted in HPI and below Physical Exam Vital Signs: Last Vital Signs Temp 98.0 F 05/20/25 10:20 Pulse 86 05/20/25 10:20 BP 126/80 05/20/25 10:20 Pulse Ox 97 05/20/25 10:20 Oxygen Delivery Method Room Air 05/20/25 10:20 BMI result Body Mass Index 24.2 Assessment & Plan Assessment & Plan (1) Left eye pain: Code(s): H57.12 - Ocular pain, left eye (2) Hordeolum externum left lower eyelid: Code(s): H00.015 - Hordeolum externum left lower eyelid Plan Most likely stye plan - Warm compresses and application of prescribed ointment recommended to alleviate symptoms and promote resolution. - Medication to be sent to the patient's pharmacy. - tylenol or motrin as needed for pain - follow up with the eye doctor if no improvement Medications: New erythromycin Apply to left eye 4 times a day while awake 0.5 inches ophthalmic (eye) QID 3.5 grams 0RF Coding Level of Care Code Est Pt Level 3 (18786) Diagnoses Left eye pain H57.12 Hordeolum externum left lower eyelid H00.015
--- OUTSIDE RECORDS SUMMARY | 2025-05-20 11:20 | XMS_ITS | Patient Health Record ---
[facility] Address [address] [place] [address] Care Team Providers Care Mail Manager Name Role Phone Yovana Izaguirre Primary Care Provider Unavailabl e Black, Leticia Unavailable [phone] Allergies Allergen (clinical drug ingredient) Drug/Non Drug [...] Status Risk Notes Problem Acquired hallux valgus (21999034) Hallux valgus (acquired), left foot (M20.12) Active confirmed Problem Localized, primary osteoarthritis of the ankle and/or foot (150102315) Primary osteoarthrit is, right ankle and foot (M19.071) Active confirmed Problem Acquired hallux valgus (80543667) Hallux valgus (acquired), right foot (M20.11) Active confirmed Problem Acquired hammer toe of right foot (1472397582705661) Other hammer toe(s) (acquired), right foot (M20.41) Active confirmed Problem Acquired hammer toe of left foot (1752950565621436) Other hammer toe(s) (acquired), left foot (M20.42) Active confirmed Vital Signs Height 5ft 1in in 08/13/2024 Weight 128 lbs 08/13/2024 BMI 24.18 kg/m2 08/13/2024 Encounters Encounter Location Date Provider Diagnosis [facility] [address] [place] [address] 08/13/2024 Leticia Black Pain in right foot [...] Treatment Pending Test Test Name Order Date [id number] NAIL, 1-5 11/28/2021 Insurance Providers Payer Name Payer Address Payer Phone Subscriber Number Group Number Insured Name Patient Relationship to Insured Coverage Start Date Coverage End Date [employer] Medicare [id number] [address] [address] [place] [address] [id number] Monica Booker Self - patient is the insured Medical (General) History Medical History History ICD Code Arthritis Cancer Surgical History Surgery Date(Month/Year) hysterectomy, complete 01/08/2013 colonoscopy 2020 Hospitalization History Reason Date(Month/Year) [facility]- Bleeding- GI Dr - ruptured hemorroi ds 11/29
--- OUTSIDE RECORDS SUMMARY | 2025-05-20 11:20 | XMS_ITS | Clinical Summary ---
Author Organization [facility] Address [address] [place] [address] Care Team Providers Care Service Rig Operator Name Role Phone Unavailable Primary Care [...]
== END 2025-05-20 10:46 | disposition home or self-care (01) ==
PROVIDERS: Visit Provider Physician Assistant Medical
DX: H57.12 Ocular pain, left eye (principal); H00.015 Hordeolum externum left lower eyelid

== ENCOUNTER → 2025-05-20 09:31 | Outpatient (BNVA) | payer MEDICARE, SELFPAY | PROVIDERS: Visit Provider Physician Assistant Medical | DX: H57.12 Ocular pain, left eye (principal); H00.015 Hordeolum externum left lower eyelid | CPT/HCPCS: 99212 ==

== ENCOUNTER 2025-06-24 10:47 | Outpatient (AMB) | payer MEDICARE, SELFPAY ==
--- NOTE | 2025-06-24 10:56 | A.OFFPC_ITS ---
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 Website/Blog Editor Required: No Allergies nitrofurantoin (Macrodantin) Allergy (Unknown, Verified 06/24/25 11:23) Unknown Medication List - Last Reconciled 06/24/25 by Nasra Tovar, PHYSICIAN ASST- acetaminophen ER (Tylenol Arthritis Pain) 650 - 1,300 mg (1 - 2 x 650 mg) PO Q12H PRN calcium carbonate (Calcium 600) 600 mg PO BID famotidine (Pepcid) 40 mg PO BEDTIME PRN naproxen sodium (Aleve) 220 mg PO BID PRN Tobacco use date assessed: 06/24/25 Fall risk assessment: No Falls in past year Last assessed Fall Risk: 06/24/25 Dental Screening Dental Screen Date: 06/24/25 Did you have a dental visit in the last 12 months?: Yes Did you have a dental problem in the last 6 months where you did not have access to dental care?: No Was dental information given to patient?: Patient has dentist HPI HPI Comments History of Present Illness Details 70 y/o F with Oa multiple sites, Osteope jessica, Kim syndrome , hx of uterine and endometrial cancer SurgHx: FHx: sister w/ cervical ca; children with celiacs SocHx: ,dog passed way Health Maintenance: See scanned preventative medicine assessment with personalized health plan and screening schedule. Mammo 10/2024 DEXA 2022, DEXA to be done this year Colon 2024 + polyp, early celiacs ? PAP Vaccines: Flu 05/2025, Tdap 06/24/25 AAA screen EKG: [place] [facility]: rheum appt next week @ [facility] Psychiatric Director/Onc Visual Acuity: Glasses Hearing Screening: ACP: Dietary/Nutrition/Exercise Edu provided: Y History of Present Illness The patient is a 70-year-old female presenting to establish care and address current medical concerns. Previous PCP [facility], no records. Last PCP appt > 2 years ago Osteopenia: - History of osteopenia. - On calcium supplements. - Managed by Rheum Osteoarthritis: - Diagnosed with osteoarthritis. - On naproxen and acetaminophen. Elevated BP - Recent high blood pressure readings. - No prior medication. - Denies cardiac sx Gastroesophageal Reflux Disease: - On famotidine for GERD. 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 - Regular colonoscopies maintained. New Hip Pain: - Recent onset after flight. - Localized left hip pain Breast Tenderness: - New lateral breast tenderness. Mammo 10/2024 Uterine Cancer History: - Treated in 2012 with hysterectomy. - Needs referral to PACKAGING INSPECTOR ONC Review of Systems - Musculoskeletal: Reports pain in left hip. Reports generalized joint pain with osteoarthritis. - Gastrointestinal: Reports GERD. Denies recent GI symptoms. - Cardiovascular: Denies chest pain, pal pitations. - Endocrine: Denies thyroid issues. Repo rts breast tenderness. - Psychological: Denies anxiety or depre ssion. - Skin: Denies rashes or lesions. - Neurological: Denies headaches or visi on changes. Physical Exam General: Well developed, well nourished, in no acute distress. Appears stated age. Head: Normocephalic, atraumatic. Eyes: Pupils are equal, round and reactive to light and accommodation. Conjunctivae are clear. Vision grossly normal. Lungs: Clear to auscultation bilaterally. No rales, rhonchi or wheeze noted. Good air flow in all torres. Heart: Regular rate and rhythm. No murmurs, click, rubs or gallops are noted. Musculoskeletal: Joints are nontender, without swelling, redness, or effusions. Tenderness noted in the left lateral femur Pulses: Peripheral pulses are equal and palpable bilaterally. Extremities: No clubbing, cyanosis nor edema is noted. Psych: Mood and affect appropriate. Diagnostic results Pending Results Pending Discussion Notes During today's visit, we discussed the management of the patient's osteopenia, osteoarthritis, and hypertension. I recommended continued use of calcium supplements for osteopenia and current pain management strategies for osteoarthritis, though I also advised monitoring of the joint pain particularly in light of her new hip pain. For her elevated bp, I advised the patient to monitor her blood pressure at home and record her readings. We discussed the importance of regular check-ups for Kim syndrome, acknowledging her consistent colonoscopy surveillance. I recommended diagnostic imaging for her new onset of hip pain for further evaluation and a diagnostic mammogram and breast ultrasound due to new breast tenderness given her Kim syndrome risk. A referral was made for a gynecological oncologist following the patient's previous uterine cancer and disrupted follow-ups. Patient was given time to ask questions. All questions were answered to their satisfaction. Assessment and Plan 1. Osteopenia - Continue calcium supplements. Monitor bone density. - managed by rheum at [facility] 2. Osteoarthritis - Continue current meds. Monitor pain. 3. elevated bp - Monitor BP at home. bring log to next visit for review 4. GERD - Continue famotidine. Dietary advice. 5. Kim Syndrome - Maintain regular colonoscopies. 6. New Hip Pain, L - Recommend x-ray. Hedge Fund Accountant next w [facility]. 7. Breast Tenderness - Order diagnostic mammogram 8. Uterine Cancer History - Referral to gynecological oncologist. Patient Instructions - Continue taking calcium supplements. - Take naproxen and acetaminophen for keven int pain as needed. - Monitor your blood pressure once daily and record the readings. - Continue using famotidine when you nee d it. - Follow dietary recommendations to help manage GERD. - Go for your scheduled colonoscopies. - Visit the lab and have the diagnostic mammogram and breast ultrasound done. - Attend the appointment with your rheum atologist next week. - Call the gynecological oncologist for an appointment using the referral I sent. - RTO 2-4 weeks for SAWV, sooner PRN Consent Informed consent was obtained from the patient for a diagnostic mammogram and breast ultrasound to evaluate new breast tenderness considering her genetic predisposition for Kim syndrome. I discussed potential findings, benefits, and importance of further investigation, particularly she had her last mammogram in October, and the new breast pain raises concern. The patient understood the risks and benefits, and I confirmed her agreement to proceed with the recommended diagnostic assessments. Patient was informed and verbally consented to the use of an ambient scribe for clinic note documentation during this visit. Total time spent caring for the patient today was 40 minutes. This includes time spent before the visit reviewing the chart, time spent during the visit, and time spent after the visit on documentation, reviewing laboratory results, diagnostic imaging, medications, performing a medically necessary evaluation, counseling on diagnoses, care coordination, ordering appropriate tests, ordering appropriate medications, review of tests performed by other providers, reporting test results with the patient, communication with other healthcare providers. 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 Mother Asthma Maternal Aunt Diabetes Sister Ovarian cancer Social History (Updated 06/24/25 @ 11:13 by Willem Vega MA) Household Members: Spouse Both parents involved: No Caregiver staying overnight: No Housing: House Are you a primary care technician to a significant other at home: No Do you presently have visiting nurse or other home services: No 75 years or older and lives alone: No Alcohol intake: current Alcohol intake frequency: holidays/special occasions only Patient Tobacco Use Status: Never used Tobacco e-Cigarette/Vaping Use: Never Used Second Hand Smoke Exposure: No Current occupational status: retired 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 1. Little interest or pleasure in doing things: not at all 2. Feeling down, depressed, or hopeless: not at all 3. Trouble falling or staying asleep, or sleeping too much: not at all 4. Feeling tired or having little energy: not at all 5. Poor appetite or overeating: not at all 6. Feeling bad about yourself - or that you are a failure or have let yourself or your family down: not at all 7. Trouble concentrating on things, such as reading the newspaper or watching television: not at all 8. Moving or speaking so slowly that other people could have noticed. Or the opposite - being so fidgety or restless that you have been moving around a lot more than usual: not at all 9. Thoughts that you would be better off or of hurting yourself in some way: not at all Total score: 0 Depression Screening Interpretation: Negative Depression Screening Done: Yes 81202 - PHQ-9 Billing: Yes Source: Developed by Drs. Maverick Palomares, Rochelle Crump, Bebo Hawley and colleagues, with an educational chu from [employer]. Thrive Questionnaire Date Thrive assessed: 06/24/25 I am a: Patient What is your living situation today?: I have a steady place to live Within the past 12 months, did the food you bought not last and you didn't have the money to get more?: Never true Within the past 12 months, did you worry whether your food would run out before you got money to buy more?: Never true Do you have trouble paying for medicines?: No Do you have trouble getting transportation to medical appointments?: No Do you have trouble paying your heating and electricity bill?: No Do you have trouble taking care of your child, family member or friend?: No Do you have trouble with day-to-day activities such as bathing, preparing meals, shopping, managing finances, etc.?: No Are you currently unemployed and looking for a job?: No Are you interested in more education?: No Please select the resources that you would like help with: None Currently or been in a relationship where the following occur: No concerns reported THRIVE Score: 0 AUDIT C Alcohol Use Questionnaire (AUDIT-C) 1. How often do you have a drink containing alcohol?: Monthly or less 2. How many drinks containing alcohol do you have on a typical day when you are drinking?: 1 or 2 3. How often do you have six or more drinks on one occasion?: Never Total Score: 1 Score Reviewed/Action Taken: Yes KAYLYN-7 AMB Questionnaire KAYLYN-7 Date KAYLYN - 7 assessed: 06/24/25 Feeling nervous, anxious, or on edge: 0 = Not at all Not being able to stop or control worryin = Not at all Worrying too much about different things: 0 = Not at all Trouble relaxin = Not at all Being so restless that it is hard to sit still: 0 = Not at all Becoming easily annoyed or irritable: 0 = Not at all Feeling afraid as if something awful might happen: 0 = Not at all Total KAYLYN-7 score (0-4 normal; 5-9 mild; 10-14 moderate; 15-21 severe): 0 Source: Developed by Drs. Maverick Palomares, Rochelle Crump, Bebo Hawley and colleagues, with an educational chu from [employer]. KAYLYN-7 Assessment Billing KAYLYN-7 Assessment Tool: KAYLYN-7 Assessment 70800 Physical exam (Primary Care) Vital Signs: Last Vital Signs Temp 97.1 F 06/24/25 11:10 Pulse 93 06/24/25 11:10 Resp 14 06/24/25 11:10 BP 156/84 H 06/24/25 11:39 Pulse Ox 99 06/24/25 11:10 Oxygen Delivery Method Room Air 06/24/25 11:10 BMI result Body Mass Index 24.4 Tobacco/Smoking Status: Tobacco use Status Tobacco use date assessed 06/24/25 06/24/25 10:58 Patient Tobacco Use Status Never used Tobacco 06/24/25 11:13 e-Cigarette/Vaping Use Never Used 06/24/25 11:13 PHQ-9: PHQ-9 Score PHQ-9: Total score 0 06/24/25 11:23 Depression Screening Interpretation: Negative Thrive Assessment: Date of Thrive Assessment Date Thrive assessed 06/24/25 06/24/25 10:58 Currently or been in a relationship where the following occur: No concerns reported Coding Level of Care Code New Pt Level 4 (90021) Complex EM visit Add On G2211 Diagnoses Encounter to establish care with new provider Z76.89 Hx of cancer of endometrium Z85.42 History of uterine cancer Z85.42 Kim syndrome Z15.060; Z15.068; Z15.07; Z15.09 Need for Tdap vaccination Z23 Mastalgia N64.4 Elevated blood pressure reading in office without diagnosis of hypertension R03.0 Left hip pain M25.552 GERD (gastroesophageal reflux disease) K21.9 Osteopenia after menopause M85.80; Z78.0 Primary osteoarthritis of hands, bilateral M19.041; M19.042 Additional Codes KAYLYN-7 Assessment Billing - KAYLYN-7 Assessment Tool: KAYLYN-7 Assessment 32384 ([id number]) PHQ-9 - 03600 - PHQ-9 Billing: Yes ([id number]) Assessment & Plan Assessment & Plan (1) Encounter to establish care with new provider: Code(s): Z76.89 - Persons encountering health services in other specified circumstances (2) Hx of cancer of endometrium: Comment: and uterus Code(s): Z85.42 - Personal history of malignant neoplasm of other parts of uterus Category: Medical (3) History of uterine cancer: Code(s): Z85.42 - Personal history of malignant neoplasm of other parts of uterus Category: Medical (4) Kim syndrome: Code(s): Z15.060 - Genetic susceptibility to colorectal cancer; Z15.068 - Genetic susceptibility to other malignant neoplasm of digestive system; Z15.07 - Genetic susceptibility to malignant neoplasm of urinary tract; Z15.09 - Genetic susceptibility to other malignant neoplasm Category: Medical (5) Need for Tdap vaccination: Code(s): Z23 - Encounter for immunization Category: Medical (6) Mastalgia: Code(s): N64.4 - Mastodynia Category: Medical (7) Elevated blood pressure reading in office without diagnosis of hypertension: Code(s): R03.0 - Elevated blood-pressure reading, without diagnosis of hypertension Category: Medical (8) Left hip pain: Code(s): M25.552 - Pain in left hip Category: Medical (9) GERD (gastroesophageal reflux disease): Code(s): K21.9 - Gastro-esophageal reflux disease without esophagitis Category: Medical (10) Osteopenia after menopause: Comment: DEXA 09/22/22. Spine -1.5, Left femur neck -2.4, Left femur -2.1. (FRAX Major 13.4, Hip 3) Code(s): M85.80 - Other specified disorders of bone density and structure, unspecified site; Z78.0 - Asymptomatic menopausal state Category: Medical (11) Primary osteoarthritis of hands, bilateral: Code(s): M19.041 - Primary osteoarthritis, right hand; M19.042 - Primary osteoarthritis, left hand Category: Medical Plan . Orders: Orders Complete Blood Count no Diff Today Z00.00 - Encounter for general adult medical examination without abnormal findings Hemoglobin A1c Today Z00.00 - Encounter for general adult medical examination without abnormal findings Microalbumin, Random (w Creat) Today Z00.00 - Encounter for general adult medical examination without abnormal findings Vitamin B12 and Folate Today Z00.00 - Encounter for general adult medical examination without abnormal findings Vitamin D 25-OH Total Today Z00.00 - Encounter for general adult medical examination without abnormal findings TDaP Immunization Today Z23 - Encounter for immunization Comprehensive Met. Panel Today Z00.00 - Encounter for general adult medical examination without abnormal findings Lipid Panel Today Z00.00 - Encounter for general adult medical examination wi thout abnormal findings TSH reflex Free T4 Today Z00.00 - Encounter for general adult medical examination without abnormal findings MM tomosynthesis diagnostic BI Today N64.4 - Mastodynia, Z15.060 - Genetic susceptibility to colorectal cancer, Z15.068 - Genetic susceptibility to other malignant neoplasm of digestive system, Z15.07 - Genetic susceptibility to malignant neoplasm of urinary tract, Z15.09 - Genetic susceptibility to other malignant neoplasm, Z85.42 - Personal history of malignant neoplasm of other parts of uterus XR femur LT 2V Today M25.552 - Pain in left hip Referrals Gynecologic Oncology Referral Z15.060 - Genetic susceptibility to colorectal cancer, Z15.068 - Genetic susceptibility to other malignant neoplasm of digestive system, Z15.07 - Genetic susceptibility to malignant neoplasm of urinary tract, Z15.09 - Genetic susceptibility to other malignant neoplasm, Z85.42 - Personal history of malignant neoplasm of other parts of uterus Medications: New Boostrix Tdap (diphth,pertus(acell),tetanus) 0.5 mL IM ONCE 0.5 mL 0RF NS Z23 - Encounter for immunization Patient Instructions: Walk-In Care (Urgent Care): We Make it Easy Walk-in for urgent medical issues such as: ? Seasonal Allergies ? Insect Bites ? Cough ? Diarrhea ? Acute Asthma Attacks ? Back, Knee or Joint Pain ? Ear Infection ? Fever without a Rash ? Headaches ? Nausea ? Seagraves Eye, Rash or Skin Irritation ? Sore Throat ? Sports Physicals ? Vomiting Most insurances are accepted. Patients do not need to be part of the [facility] to seek care at the walk-in clinic. Locations [address], [place] Open Sunday through Sunday 8am-5pm *Hours may vary due to staffing availability. To confirm Walk-In Care hours please call. [address], [place] [address] ? [phone] [facility] Walk-In Care in [place] provides services to ages 18 and over. Open Sunday-Sunday: 7 a.m. to 5 p.m. and Sunday: 9 a.m. to 3 p.m.* *Hours may vary due to staffing availability. To confirm Walk-In Care hours in [place], please call [phone]. [address] [place] [address] ? [phone] [facility] Walk-In Care in [place] provides services to ages 12 and over. Open Sunday-Sunday: 8 a.m. to 5 p.m. Hours may vary due to staffing availability. To confirm Walk-In Care hours in [place], please call [phone]. LABORATORY SERVICES: [facility] Lab ? Primary Location [address] [place] [address] Sunday through Sunday 6:00 AM ? 5:00 PM Sunday 7:00 AM ? 11:00 AM* [phone] The [facility] Lab is centrally located near the front entrance of the [facility] for easy outpatient access. Convenient parking is provided for outpatients. *Hours may vary due to staffing availability. To confirm Laboratory hours for any location, please call [phone]. Offsite Location For your convenience, we offer offsite laboratory draw stations at the following locations: [address] [place] [address] ? [address], [address] Sunday through Sunday 7:30 AM ? 1:00 PM* [phone] *Hours may vary due to staffing availability. To confirm Laboratory hours for any location, please call [phone]. [place] ? [address] Sunday through Sunday 6:00 AM ? 3:30 PM* Sunday 6:30 AM ? 3 PM* [phone] *Hours may vary due to staffing availability. To confirm Laboratory hours for any location, please call [phone] [place] [address] Sunday through Sunday 7:30 AM ? 4:00 PM* [phone] *Hours may vary due to staffing availability. To confirm Laboratory hours for any location, please call [phone] [place] [address] Sunday through 9:00 AM ? 4:00 PM* *Hours may vary due to staffing availability. To confirm Laboratory hours for any location, please call [phone]. Appointments are not necessary. Walk-ins are welcome. Like all the departments throughout the [facility], our Lab undergoes freq uent reviews to ensure the quality and accuracy of test results, and our staff takes special pride in its status as a nationally accredited facility. Patient Portal: [facility] ONE PATIENT. ONE RECORD. BETTER CARE. [facility] has a fully integrated, cutting- edge mobile electronic health information system that has revolutionized the way we care for our patients and manage our organization. This system improves communication and coordination enabling us to provide safe, higher-quality care, and an overall positive experience for staff and patients. Our first priority, as always, is to deliver the highest quality care possible. The system is running in the background supporting that priority. This portal is for all [facility] services and practices. If you are experiencing any technical difficulties with enrolling or logging into the Patient Portal please complete the [facility] Patient Portal Technical Support Form. [facility] now offers a new secure on-line interactive tool for patients to review their health information ? ?Patient Portal. This interactive web portal will enable patients and their families to take an active role in their care by providing easy, secure access to their health information via the internet. The Patient Portal provides patients with instant access to their health information, including laboratory results, medications, allergies, demographic information, visit history, and more. In addition to managing their own care, parents and health care proxies with authorized consent will appreciate the ability to access the records of those individuals for whom they provide care. Please note: if you wish to gain access (Proxy) to another patient?s portal, you will be required to come to the Medical Records Department in person at [facility]. Both the patient giving proxy access and the proxy will need to provide photo identification and complete the appropriate authorization. The Patient Portal also allows track their appointments online. The [facility] Patient Portal also saves patients time by allowing them to submit updates to their demographic and contact information prior to their visits. Portal email notifications will also alert patients to any new activity on their portal, such as test results and new appointments. In order to initially enroll in the [facility] Patient Portal, you will need to enter some required information including the following: * your [facility] Medical Record number * your personal home email address * name * date of Please note: In order to enroll in the [facility] Patient Portal, we need to have your email address on file in your electronic medical record. ?The email address needs to be specific for one person (yourself) in order for your Portal enrollment to be successful. ?You can update your email address in person with our Registration staff when you are registering for a hospital visit. ?Otherwise, you will need to come to the Health Information Management (Medical Records) Department at [facility]. ?We are open from Sunday ? Sunday from 7:30 a.m. ? 4:30 p.m. ?You will be required to present a photo id. Once you have successfully enrolled in the Patient Portal, you will receive a one-time user id and password for the Portal, sent to your email address. ?This will allow you to log into the Patient Portal within 99 hrs and reset your own logon id and password, and define personal security questions. ?Once your permanent login and password have been set, you can log into the [facility] Patient Portal at any time via the blue button above or from the Portal Logon button on any page of the [facility] website. [facility] and [facility] encourage all of our patients to enroll in Patient Portal as it presents a valuable opportunity for patients and their families to actively participate in their care and stay healthy Welcome to [facility]. ?We look forward to working with you.
[2025-06-24 11:10] VITALS: BP 152/80; PULSE 93; RESP 14; TEMP 36.2; O2SAT 99; BMI 24.4
[2025-06-24 11:39] VITALS: BP 156/84
--- OUTSIDE RECORDS SUMMARY | 2025-06-24 13:07 | XMS_ITS | Clinical Summary ---
Author Organization [facility] Address [address] [place] [address] Care Team Providers Care Rural Route Mail Carrier Name Role Phone Unavailable Primary Care Provider [...]
--- OUTSIDE RECORDS SUMMARY | 2025-06-24 13:07 | XMS_ITS | Patient Health Record ---
[facility] [place] Address [address] [place] [address] Care Team Providers Care Clinical Laboratory Director Name Role Phone Yovana Izaguirre Primary Care Provider Unavailabl e Black, Leticia Unavailable [phone] Allergies Allergen (clinical drug ingredient) Drug/Non Drug [...] Status Risk Notes Problem Acquired hallux valgus (82349077) Hallux valgus (acquired), left foot (M20.12) Active confirmed Problem Localized, primary osteoarthritis of the ankle and/or foot (607198141) Primary osteoarthrit is, right ankle and foot (M19.071) Active confirmed Problem Acquired hallux valgus (22553153) Hallux valgus (acquired), right foot (M20.11) Active confirmed Problem Acquired hammer toe of right foot (1070962133576913) Other hammer toe(s) (acquired), right foot (M20.41) Active confirmed Problem Acquired hammer toe of left foot (3433452875276068) Other hammer toe(s) (acquired), left foot (M20.42) Active confirmed Vital Signs Height 5ft 1in in 08/13/2024 Weight 128 lbs 08/13/2024 BMI 24.18 kg/m2 08/13/2024 Encounters Encounter Location Date Provider Diagnosis [facility] [address] [place] [address] 08/13/2024 Leticia Black Pain in right foot [...] Treatment Pending Test Test Name Order Date [id number] NAIL, 1-5 11/28/2021 Insurance Providers Payer Name Payer Address Payer Phone Subscriber Number Group Number Insured Name Patient Relationship to Insured Coverage Start Date Coverage End Date [employer] Medicare [id number] [address] [address] [place] [address] [id number] Monica Booker Self - patient is the insured Medical (General) History Medical History History ICD Code Arthritis Cancer Surgical History Surgery Date(Month/Year) hysterectomy, complete 01/08/2013 colonoscopy 2020 Hospitalization History Reason Date(Month/Year) [facility]- Bleeding- GI Dr - ruptured hemorroi ds 11/29
== END 2025-06-24 12:11 | disposition home or self-care (01) ==
LOC: HO.HMCFM 10:48
PROVIDERS: PCP Nurse Practitioner Family; Visit Provider Nurse Practitioner Family
DX: Z76.89 Persons encountering health services in other specified circumstances (principal); Z85.42 Personal history of malignant neoplasm of other parts of uterus; Z15.060 Genetic susceptibility to colorectal cancer; Z15.068 Genetic susceptibility to other malignant neoplasm of digestive system; Z15.07 Genetic susceptibility to malignant neoplasm of urinary tract; Z15.09 Genetic susceptibility to other malignant neoplasm; Z23 Encounter for immunization; N64.4 Mastodynia; R03.0 Elevated blood-pressure reading, without diagnosis of hypertension; M25.552 Pain in left hip; K21.9 Gastro-esophageal reflux disease without esophagitis; M85.80 Other specified disorders of bone density and structure, unspecified site; Z78.0 Asymptomatic menopausal state; M19.041 Primary osteoarthritis, right hand; M19.042 Primary osteoarthritis, left hand

== ENCOUNTER 2025-06-24 10:47 | Outpatient (REF) | payer MEDICARE, OTHER, SELFPAY ==
[2025-06-24 14:18] LABS: Hematocrit 40.9 % (37.0-47.0); Hemoglobin 13.5 g/dl (12.0-16.0); Mean Corpuscular HGB Conc 33.0 g/dl (31.0-35.0); Mean Corpuscular Hemoglobin 30.9 pg (27.0-33.0); Mean Corpuscular Volume 93.6 fL (80.0-98.0); NRBC Abs Auto 0.000 X10*3/uL (0.0-0.012); NRBC Pct Auto 0.0 /100WBC (0.0-0.2); Platelet Count 292 X10*3/uL (160-400); Red Blood Count 4.37 X10*6/uL (4.20-5.50); White Blood Count 6.8 X10*3/uL (4.8-10.8)
[2025-06-24 14:47] LABS: Alanine Aminotransferase 22 U/L (0-31); Albumin Level 4.4 g/dL (3.5-5.0); Alkaline Phosphatase 77 U/L (39-117); Anion Gap 11 (12-20); Aspartate Amino Transferase 25 U/L (5-31); Blood Urea Nitrogen 19 mg/dL (9-16); Calcium 9.6 mg/dL (8.4-10.2); Carbon Dioxide 27 mmol/L (22-29); Chloride 107 mmol/L (96-108); Cholesterol 190 mg/dL (<200); Estimated Glomerular Filt Rate 57; HDL Cholesterol 46 mg/dL (>40); Hemoglobin A1C 139.6536 umol/L; Potassium 3.9 mmol/L (3.3-5.1); Sodium 141 mmol/L (135-145); Total Protein 7.3 g/dL (6.5-8.0); Triglycerides 115 mg/dL (<150)
[2025-06-24 14:51] LABS: Microalbum/Creatinine Ratio Ur 12.1 ug/mg cr (<30)
[2025-06-24 15:15] LABS: Folate 9.6 ng/mL (> or = 4.0); Vitamin B12 422 pg/mL (200-900)
== END 2025-06-24 10:48 | disposition home or self-care (01) ==
LOC: HO.WFDLDS 10:47
PROVIDERS: PCP Nurse Practitioner Family; Visit Provider Nurse Practitioner Family
DX: Z00.00 Encounter for general adult medical examination without abnormal findings (principal); Z23 Encounter for immunization; R03.0 Elevated blood-pressure reading, without diagnosis of hypertension; M25.552 Pain in left hip; K21.9 Gastro-esophageal reflux disease without esophagitis; M85.80 Other specified disorders of bone density and structure, unspecified site; M19.041 Primary osteoarthritis, right hand; M19.042 Primary osteoarthritis, left hand; Z78.0 Asymptomatic menopausal state; Z76.89 Persons encountering health services in other specified circumstances; Z15.060 Genetic susceptibility to colorectal cancer; Z15.068 Genetic susceptibility to other malignant neoplasm of digestive system; Z15.07 Genetic susceptibility to malignant neoplasm of urinary tract; Z15.09 Genetic susceptibility to other malignant neoplasm; Z79.1 Long term (current) use of non-steroidal anti-inflammatories (NSAID); Z79.899 Other long term (current) drug therapy; Z85.42 Personal history of malignant neoplasm of other parts of uterus
CPT/HCPCS: 36415; 80053; 80061; 82043; 82306; 82570; 82607; 82746; 83036; 84443; 85027; 90471; 90715; 96127; 99202

== ENCOUNTER 2025-07-01 12:38 | Outpatient (AMB) | payer MEDICARE, SELFPAY ==
--- NOTE | 2025-07-01 12:47 | A.OFFVIS_ITS ---
Vital Signs 07/01/25 12:51 Height 5 ft 1 in Weight 121 lb 0.54 oz BMI 22.9 BP 140/80 H Blood Pressure Location Lt brachial Position Sitting Pulse 71 Pulse Source Pulse Oximeter Pulse Oximetry (%) 99 Oxygen Delivery Method Room Air Intake Visit Reasons: OA Intake Note: Patient presents for osteoarthritis follow up. Airplane Cover Maker Required: No Accompanied by: Self / Same As Patient Allergies nitrofurantoin (Macrodantin) Allergy (Unknown, Verified 07/01/25 12:54) Unknown Medication List - Last Reconciled 07/01/25 by Peggy Fraser MD acetaminophen ER (Tylenol Arthritis Pain) 650 - 1,300 mg (1 - 2 x 650 mg) PO Q12H PRN calcium carbonate (Calcium 600) 600 mg PO BID famotidine (Pepcid) 40 mg PO BEDTIME PRN naproxen sodium (Aleve) 220 mg PO BID PRN HPI Comments Details: Patient is a 70-year-old female who presents for follow up management of her osteoarthritis. Interval History: Last seen 07/01/2024 with me - Not on any DMARDs - Currently complaining of right shoulder stiffness. - Difficult to raise her hand above her head without pain or stiffness to the right shoulder. Left shoulder without any issues. Continues to have hand pain bilaterally. Today - Not on any DMARDs - Complaining of bilateral hand pain - Knees with crepitation - Did not go to PT but shoulders improved Rheumatologic History: Patient refer to 03/2020 for hand pain. Evaluation at that time found the hand pain to be consistent with osteoarthritis. She has been manage with daily Tylenol and conservative management. Current Rheumatology Medication(s): Tylenol Arthritis pain Ibuprofen p.r.n. Calcium 600 mg p.o. twice a day PFSH Medical History (Updated 07/01/25 @ 13:19 by Peggy Fraser MD) Kim syndrome Osteoporosis Colon cancer screening Right shoulder pain Osteopenia after menopause Primary osteoarthritis of hands, bilateral PONV (postoperative nausea and vomiting) Hx of cancer of endometrium Arthritis Surgical History (Updated 06/24/25 @ 11:23 by Willem Vega MA) H/O: hysterectomy Hx of colonoscopy (~04/2025) History of total hysterectomy with bilateral salpingo-oophorectomy (BSO) Family History (Updated 06/24/25 @ 10:58 by Willem Vega MA) Father No problems noted. Mother Asthma Maternal Aunt Diabetes Sister Ovarian cancer Social History (Updated 06/24/25 @ 11:13 by Willem Vega MA) Household Members: Spouse Both parents involved: No Caregiver staying overnight: No Housing: House Are you a primary vp care management to a significant other at home: No Do you presently have visiting nurse or other home services: No 75 years or older and lives alone: No Alcohol intake: current Alcohol intake frequency: holidays/special occasions only Patient Tobacco Use Status: Never used Tobacco e-Cigarette/Vaping Use: Never Used Second Hand Smoke Exposure: No Current occupational status: retired 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 Current occupational exposures/hazards: No Cognitive needs: No Hearing needs: No Vision needs: Yes (wear glasses) Review of Systems Narrative Review of Systems Constitutional: Denies fever, chills, weight loss ENT: Denies vision changes, eye pain or eye redness, dental caries, dry mouth GI: Denies nausea, vomiting, diarrhea, abdominal pain, change in BM Pulm: Denies SOB, EVANS, hemoptysis, wheezing Cards: Denies chest pain, palpitations Skin: Denies Raynaud's, rash, nail changes, photosensitivity, REVENUE ENFORCEMENT COLLECTION AGENT: Denies headaches, weakness, paresthesias, recurrent falls MSK: as per HPI All other systems reviewed and are unremarkable except noted above Physical Exam Exam Exam: Vital signs reviewed Physical Examination CONSTITUITIONAL Patient alert and cooperative. Well appearing and in no apparent painful distress MSK Hands * Right Hand: Able to make a fist. No swelling or tenderness to palpation of the MCPs, PIPs or DIPs. No deformities noted. * Left Hand: Able to make a fist. No swelling or tenderness to palpation of the MCPs, PIPs or DIPs. No deformities noted. Wrists * Right Wrist: Full ROM to flexion and extension. No swelling or TTP * Left Wrist: Full ROM to flexion and extension. No swelling or TTP Elbows * Right Elbow: Full ROM. No swelling or TTP. No TTP of the medial epicondyle. No TTP of the lateral epicondyle * Left Elbow: Full ROM. No swelling or TTP. No TTP of the medial epicondyle. No TTP of the lateral epicondyle Shoulders * Right shoulder: Full ROM. No swelling noted. No TTP of the AC joint. No TTP of the subacromial bursa. No TTP of the posterior shoulder * Left shoulder: Full ROM. No swelling noted. No TTP of the AC joint. No TTP of the subacromial bursa. No TTP of the posterior shoulder Hips * Right hip: Good ROM. No pain elicited with hip flexion/internal rotati on/external rotation * Left hip: Good ROM. No pain elicited with hip flexion/internal rotation/external rotation Hip bursa: No tenderness to palpation bilaterally Knees * Right knee: Full ROM. No swelling noted. No TTP of the knee joint line. No TTP of pes anserine bursa * Left knee: Full ROM. No swelling noted. No TTP of the knee joint line. No TTP of pes anserine bursa. Ankles * Right ankle: Good ankle dorsiflexion and plantar flexion. No swelling. No TTP of the ankle joint * Left ankle: Good ankle dorsiflexion and plantar flexion. No swelling. No TTP of the ankle joint Feet * Right foot: Negative squeeze test * Left foot: Negative squeeze test Tender points? * No tenderness to palpation of the bilateral trapezius, supraspinatus, anterior costochondral junctions, bilateral suboccipital muscle insertions SKIN No rashes Vital Signs: Last Vital Signs Pulse 71 07/01/25 12:51 BP 140/80 H 07/01/25 12:51 Pulse Ox 99 07/01/25 12:51 Oxygen Delivery Method Room Air 07/01/25 12:51 BMI result Body Mass Index 22.9 Vital signs reviewed Physical Examination CONSTITUITIONAL Patient alert and cooperative. Well appearing and in no apparent painful distress MSK Hands * Right Hand: Able to make a fist. No swelling or tenderness to palpation of the MCPs, PIPs or DIPs. * Left Hand: Able to make a fist. No swelling or tenderness to palpation of the MCPs, PIPs or DIPs. * Herbedens and Bouchards nodes noted bilaterally Wrists * Right Wrist: Full ROM to flexion and extension. No swelling or TTP * Left Wrist: Full ROM to flexion and extension. No swelling or TTP Elbows * Right Elbow: Full ROM. No swelling or TTP. No TTP of the medial epicondyle. No TTP of the lateral epicondyle * Left Elbow: Full ROM. No swelling or TTP. No TTP of the medial epicondyle. No TTP of the lateral epicondyle Shoulders * Right shoulder: Full ROM. No swelling noted. No TTP of the AC joint. No TTP of the subacromial bursa. No TTP of the posterior shoulder * Left shoulder: Full ROM. No swelling noted. No TTP of the AC joint. No TTP of the subacromial bursa. No TTP of the posterior shoulder Hip bursa: Tenderness to palpation bilaterally Knees * Right knee: Full ROM. No swelling noted. No TTP of the knee joint line. No TTP of pes anserine bursa * Left knee: Full ROM. No swelling noted. No TTP of the knee joint line. No TTP of pes anserine bursa. * Crepitations felt bilaterally Ankles * Right ankle: Good ankle dorsiflexion and plantar flexion. No swelling. No TTP of the ankle joint * Left ankle: Good ankle dorsiflexion and plantar flexion. No swelling. No TTP of the ankle joint Feet * Right foot: Negative squeeze test * Left foot: Negative squeeze test Tender points? * No tenderness to palpation of the bilateral trapezius, supraspinatus, anterior costochondral junctions, bilateral suboccipital muscle insertions SKIN No rashes Results Reviewed Results Reviewed: Laboratory Tests 06/24/25 12:02 WBC 6.8 RBC 4.37 Hgb 13.5 Hct 40.9 Plt Count 292 Sodium 141 Potassium 3.9 Chloride 107 Carbon Dioxide 27 BUN 19 H Creatinine 0.97 AST 25 ALT 22 25-OH Vitamin D Total 34.0 Assessment & Plan Assessment & Plan (1) Polyarticular osteoarthritis: Code(s): M15.9 - Polyosteoarthritis, unspecified Plan: #Polyarticular OA Patient is a 70-year-old female polyarticular osteoarthritis here today for follow up. Complaining of hand pain today. Discussed therapeutic modalities including paraffin wax baths, topical diclofenac and copper compression gloves Also discussed other therapeutic options including steroid and gel injections for the knees Patient not interested in that today. Does not require injections today either. Plan - Therapeutic options discussed - RTC prn (2) Osteopenia after menopause: Comment: DEXA 09/22/22. Spine -1.5, Left femur neck -2.4, Left femur -2.1. (FRAX 13.4/3) Code(s): M85.80 - Other specified disorders of bone density and structure, unspecified site; Z78.0 - Asymptomatic menopausal state Category: Medical Plan: #Osteopenia Patient with osteopenia involving the spine and left femur. FRAX for major osteoporotic fracture and hip fracture is below the percentage recommended for commencement of treatment. (major osteoporotic fracture would need to be greater than 20% and hip fracture would need to be greater than 3%). I agreed with holding off treatment for now. Advised patient to continue vitamin-D and calcium. Plan - Repeat DEXA - Continue vit D supplementation Plan I spent 20 minutes reviewing the record and labs, taking a history, examining the patient, discussing the treatment plan and documenting in the medical record Coding Level of Care Code Est Pt Level 3 (31136) Diagnoses Polyarticular osteoarthritis M15.9 Osteopenia after menopause M85.80; Z78.0
[2025-07-01 12:51] VITALS: BP 140/80; PULSE 71; O2SAT 99; BMI 22.9
== END 2025-07-01 13:24 | disposition home or self-care (01) ==
LOC: HO.RHES 12:39
PROVIDERS: PCP Nurse Practitioner Family; Visit Provider Student in an Organized Health Care Education/Training Program
DX: M15.9 Polyosteoarthritis, unspecified (principal); M85.80 Other specified disorders of bone density and structure, unspecified site; Z78.0 Asymptomatic menopausal state
CPT/HCPCS: 99213

== ENCOUNTER → 2025-07-01 12:38 | Outpatient (BNVA) | payer MEDICARE, SELFPAY | PROVIDERS: Visit Provider Student in an Organized Health Care Education/Training Program | DX: M15.9 Polyosteoarthritis, unspecified (principal); M85.80 Other specified disorders of bone density and structure, unspecified site; Z78.0 Asymptomatic menopausal state; Z79.899 Other long term (current) drug therapy | CPT/HCPCS: 99212 ==

== ENCOUNTER 2025-07-08 08:41 | Outpatient (REF) | payer MEDICARE, SELFPAY ==
--- NOTE | ~2025-07-08 | MM_ITS ---
EXAMINATION: DXA BONE DENSITY AXIAL HISTORY: M85.80 - Other specified disorders of bone density and structure, unspecified... TECHNIQUE: [employer] Dual energy absorptiometry (DEXA) of the lumbar spine, total left hip, and femoral neck was performed. COMPARISON: Comparison is made with the prior examination dated 09/22/2022. FINDINGS: The bone mineral density of the lumbar spine is 0.871 g/cm2, corresponding to a T-score of -2.5, and a Z-score of -0.6. This is indicative of osteoporosis. This represents a BMD change of -5.7% compared to the prior exam. This is statistically significant. The bone mineral density of the left total hip is 0.735 g/cm2, corresponding to a T-score of -2.2, and a Z-score of -0.5. This is indicative of osteopenia. This represents a BMD change of -0.5% compared to the prior exam. This is not statistically significant. The bone mineral density of the left femoral neck is 0.666 g/cm2, corresponding to a T-score of -2.7, and a Z-score of -0.8. This is indicative of osteoporosis. This represents a BMD change of -5.3% compared to the prior exam. MM/XR DEXA axial skeleton IMPRESSION: Based on bone mineral density, and according to World Health Organization (WHO) criteria, the diagnosis is consistent with osteoporosis. Statistically, 68% of repeat scans fall within 1 SD (+/- 0.010 g/cm2 for AP spine L1-L4) and 1 SD (+/- 0.012 g/cm2 for femur total) FRAX is a trademark of the [employer], a World Health Organization (WHO) Collaborating Center. Electronically signed by: Maverick Porter MD 07/08/2025 09:15 AM EDT
--- OUTSIDE RECORDS SUMMARY | 2025-07-08 09:17 | XMS_ITS | Patient Health Record ---
[facility] [place] Address [address] [place] [address] Care Team Providers Care Senior Electrical Project Manager Name Role Phone Yovana Izaguirre Primary Care Provider Unavailabl e Black, Leticia Unavailable [phone] Allergies Allergen (clinical drug ingredient) Drug/Non Drug [...] Status Risk Notes Problem Acquired hallux valgus (24722544) Hallux valgus (acquired), left foot (M20.12) Active confirmed Problem Localized, primary osteoarthritis of the ankle and/or foot (633109590) Primary osteoarthrit is, right ankle and foot (M19.071) Active confirmed Problem Acquired hallux valgus (90723635) Hallux valgus (acquired), right foot (M20.11) Active confirmed Problem Acquired hammer toe of right foot (4051591328682974) Other hammer toe(s) (acquired), right foot (M20.41) Active confirmed Problem Acquired hammer toe of left foot (2752112274231606) Other hammer toe(s) (acquired), left foot (M20.42) Active confirmed Vital Signs Height 5ft 1in in 08/13/2024 Weight 128 lbs 08/13/2024 BMI 24.18 kg/m2 08/13/2024 Encounters Encounter Location Date Provider Diagnosis [facility] [address] [place] [address] 08/13/2024 Leticia Black Pain in right foot [...] Treatment Pending Test Test Name Order Date [id number] NAIL, 1-5 11/28/2021 Insurance Providers Payer Name Payer Address Payer Phone Subscriber Number Group Number Insured Name Patient Relationship to Insured Coverage Start Date Coverage End Date [employer] Medicare Adv-[id number] [address] [address] [place] [address] [id number] Monica Booker Self - patient is the insured Medical (General) History Medical History History ICD Code Arthritis Cancer Surgical History Surgery Date(Month/Year) hysterectomy, complete 01/08/2013 colonoscopy 2020 Hospitalization History Reason Date(Month/Year) [facility]- Bleeding- GI Dr - ruptured hemorroi ds 11/29
== END 2025-07-08 08:42 | disposition home or self-care (01) ==
LOC: HO.MAMMO 08:41
PROVIDERS: PCP Nurse Practitioner Family; Visit Provider Student in an Organized Health Care Education/Training Program
DX: Z13.820 Encounter for screening for osteoporosis (principal); Z78.0 Asymptomatic menopausal state; M85.80 Other specified disorders of bone density and structure, unspecified site
CPT/HCPCS: 77080

== ENCOUNTER → 2025-07-08 08:43 | Outpatient (BNV) | payer MEDICARE, SELFPAY | PROVIDERS: PCP Nurse Practitioner Family; Visit Provider Radiology Diagnostic Radiology | DX: E28.39 Other primary ovarian failure (principal) | CPT/HCPCS: 77080 ==

== ENCOUNTER 2025-07-22 13:12 | Outpatient (AMB) | payer MEDICARE, SELFPAY ==
--- NOTE | 2025-07-22 13:16 | A.OFFVIS_ITS ---
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 The Medicare Annual Wellness Visit (AWV) is a yearly appointment with a health professional to identify health risks and help reduce them and to create or upda te a personalized prevention plan. During a Medicare AWV, health professionals should also review any current opioid prescriptions, detect any cognitive impairment, and establish or update medical and family history. 70 y/o F with Oa multiple sites, osteopo rosis, Kim syndrome , hx of uterine and endometrial cancer,prediabetes (MSH6 mutation) SurgHx: SONJA FHx: sister w/ cervical ca; children with celiacs SocHx: ,dog passed way Health Maintenance: See scanned preventative medicine assessment with personalized health plan and screening schedule. Mammo 10/2024 DEXA 06/2025 MM/XR DEXA axial skeleton IMPRESSION: Based on bone mineral density, and according to World Health Organization (WHO) criteria, the diagnosis is consistent with osteoporosis Colon 2024 + polyp, early celiacs ? PAP active w/ sales project coordinator Vaccines: Flu 05/2025, Tdap 06/24/25 AAA screen: NA EKG: done today NSR [place] of Care: rheum C GI Enterprise Applications Manager/Onc Optho [place] Visual Acuity: Glasses eye exam scheduled 08/2025 at [facility] Hearing Screening: no concerns ACP: does not have, reviewed MOLST and HCP with her today, provided blank copies along w/ 5 wishes form Dietary/Nutrition/Exercise Edu provided: Y During the course of the visit the patient was educated and counseled about appropriate screening and preventative services. Patient instructions were provided to the patient in written or electronic format. I have reviewed and verified the above information. History of Present Illness The patient is a 70-year-old female presenting for an annual Medicare wellness visit. Osteoporosis: - The patient has a new diagnosis of ost eoporosis, which has progressed from osteopenia. - Her last bone density scan was two yea rs ago. - She has an appointment with julianne sewell on July 28 to discuss the new diagnosis and potential treatment. - The patient notes that her sister, who is 57, also has osteoporosis. Anxiety and Insomnia: - The patient reports new onset of anxie ty since turning 70, which she feels is related to recent health issues and has caused her to be more easily agitated and lash out. 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 - She also reports poor sleep, with her sleep duration varying between 5 and 7 hours nightly. Elevated BP: - The patient monitors her blood pressur e at home twice daily and brought her l og to the visit. - Readings are variable, with most being below 140 systolic, but with a few elevated readings up to 150 mmHg and some low readings around 102 mmHg systolic. Prediabetes and Hypercholesterolemia: - Recent lab work from June 24 show ed a hemoglobin A1c of 5.7%, placing her in the prediabetic range, and an LDL cholesterol of 121 mg/dL, which is elevated. - She identifies using flavored coffee c reamers as a likely source of high sugar intake. Kim Syndrome and History of Uterine Cancer: - The patient has a known MSH6 gene muta tion, predisposing her to colon and uterine cancers. - She has a personal history of uterine cancer (grade 1B), for which she underwent a hysterectomy. - She undergoes regular colonoscopies fo r screening. - One sister had grade 1A uterine cancer , and another sister had cervical cancer. - Has consult w/ MEDICAL RECORDS RECEPTIONIST Onc sched. in November 2025. Breast Health: - Her last routine screening mammogram w as in October of this year and was normal, showing scattered fibroglandular density. - She subsequently developed bilateral b reast tenderness which has since resolved. - A diagnostic bilateral mammogram and u ltrasound have been ordered due to her symptoms and history, which are scheduled for July 30. Past Medical History - MSH6 gene mutation (Kim syndrome) - History of uterine cancer, grade 1B - Hypertension - Osteopenia, now progressed to osteopor osis - Hypercholesterolemia - Prediabetes - Anxiety - Insomnia Past Surgical History - Hysterectomy for uterine cancer - History of colonoscopy Family History - Sister (age 57) with osteoporosis. - Sister with uterine cancer. - Sister with cervical cancer. - Father at age 57 from possible omar ng cancer; he was a smoker. - Mother had possible lung cancer and wa s a smoker. 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 - Marital Status: Lives with her . - Nutrition: Reports using flavored coff ee creamers, which are high in sugar. - Exercise: Reports decreased physical a ctivity since she stopped working. - Tobacco Use: Patient does not smoke, b ut reports both parents were smokers. Review of Systems - Psychiatric: Reports new onset of anxi ety, feeling on edge, and increased irritability. Denies suicidal or homicidal ideation. - Neurological: Reports poor sleep, aver aging 5-7 hours per night. Denies dizziness with positional changes. - Breasts: Reports history of bilateral breast tenderness that has since resolved. Denies current breast pain. - Dental: Reports ongoing pain from wisd om teeth that require extraction. Physical Exam General: Well developed, well nourished, in no acute distress. Appears stated age. Head: Normocephalic, atraumatic. Eyes: Pupils are equal, round and reactive to light and accommodation. Conjunctivae are clear. Scleras nonicteric bilat. Vision grossly normal. Ears: TMs clear AU, EACS WNL Nose: Patent, without discharge. Neck: No carotid bruit bilat. Supple, no adenopathy or thyromegaly. Breast: Edu on SBE Lungs: Clear to auscultation bilaterally. No rales, rhonchi or wheeze noted. Good air flow in all torres. Heart: Regular rate and rhythm. No murmurs, click, rubs or gallops are noted. Abdomen: Bowel sounds present in all quadrants. The abdomen is soft, nontender, with no masses or organomegaly noted. No hernias are noted. : Deferred. Reviewed recommendations for routine MEDICAL RECORDS RECEPTIONIST. Pulses: Peripheral pulses are equal and palpable bilaterally. Extremities: No clubbing, cyanosis nor edema is noted. Neurologic: Gait and station normal. Cranial Nerves 2-12 intact. Motor strength grossly symmetrical and intact. No sensory loss. Balance normal. Skin: No rashes, ulcers, or lesions noted. Turgor is good. Skin color is good. Hair and nails are without abnormalities. Psych: Normal eye contact, affect and mood appropriate, and normal interactions. Patient is alert and appropriate to context. Results - Labs (June 24): - CBC: Normal. - Comprehensive Metabolic Panel: Electro lytes, kidney function, and liver function were normal. - Hemoglobin A1c: 5.7% (prediabetic rang e). - Lipid Panel: LDL cholesterol was 121 m g/dL (elevated). - Thyroid function: Normal. - Urinalysis: Normal. - Imaging: - Mammogram (October 2023): Normal, angel wed scattered fibroglandular density. - Genetic Testing: - Patient has a known MSH6 gene mutation . Medical Decision Making The patient is a 70-year-old female here for a Medicare wellness visit with several active issues including new diagnoses of osteoporosis, anxiety, and borderline lab values. Her recent lab work showing an HbA1c of 5.7% and an elevated LDL of 121 mg/dL warrants intervention, but not pharmacotherapy at this stage; a referral to a dietitian for lifestyle and dietary modification is the most appropriate first step. The patient's new onset anxiety, coupled with insomnia, is significantly affecting her quality of life. While sertraline was initially considered for a nxiety, the patient's report of poor sleep makes mirtazapine a superior choice, as it can address both her mood and sleep disturbances. This may also have a beneficial effect on her variable hypertension, which will be monitored. Regarding her breast health, despite the resolution of her breast tenderness and a normal screening mammogram in October, a diagnostic mammogram and ultrasound are warranted given her MSH6 mutation and new symptoms since the last screening. After discussing the rationale and the difference between diagnostic and screening imaging, the patient agreed to proceed. Her new diagnosis of osteoporosis will be managed by rheumatology, with whom she has an upcoming appointment. As part of comprehensive wellness care for a patient of her age and with her complex medical history, it is crucial to address advance care planning, and she was provided with and counseled on completing Health Care Proxy and MOLST forms. Plan Health Maintenance - Patient to proceed with scheduled diag nostic mammogram and ultrasound on July 30. - Provided patient with Health Care Prox y and MOLST forms and counseled her on completing these documents. - Patient has a MEDICAL RECORDS RECEPTIONIST follow-up scheduled for November 17. - Advised to schedule an appointment wit dermatology for a full body skin examination. - Schedule follow-up visit in six weeks. 1. Anxiety And Insomnia - Initiate mirtazapine 7.5 mg, one table t to be taken nightly at bedtime to address both anxiety and insomnia. - Follow up in six weeks to assess the m edication's effect on mood, sleep, and blood pressure. 2. Elevated BP - Continue to monitor blood pressure onc e daily at home and maintain a log. - Bring blood pressure log to the follow -up appointment in six weeks for review. 3. Prediabetes And Hypercholesterolemia - Placed a referral for the patient to wil mcclellandt with a military logistics specialist for dietary counseling. - Advised patient on dietary modificatio ns, including reducing intake of added sugars and processed foods. - Plan to repeat labs in six months to m onitor A1c and cholesterol levels. - No lipid-lowering medication is indica josé manuel at this time; will reconsider based on future lab results. 4. Osteoporosis - Patient to follow up with her schedule d rheumatology appointment on July 28 to discuss management options. Patient Instructions - Start taking the new medication, kaya zapine 7.5 mg, one pill every night at bedtime. This should help with your anxiety and sleep. - Continue checking your blood pressure once a day, and keep writing the numbers in your log. Please bring the log to your next appointment. - You will receive a call from the cathleen allison's office to schedule an appointment. They will help you with dietary changes for your blood sugar and cholesterol. - Please fill out the advance directive forms we gave you (Health Care Proxy and the pink MOLST form). Bring them with you to your next visit. - Keep your upcoming appointments with [facility] on July 28 and for your diagnostic mammogram/ultrasound on July 30. - Please call and make an appointment wi a assistant sales director for a skin check. - Schedule a follow-up visit here in [facility] six weeks. - Your next routine lab work will be in six months. Consent Patient was informed and verbally consented to the use of an ambient scribe for clinic note documentation during this visit. An additional 30 minutes was spent addressing the problem(s) noted at todays visit. This includes time spent before the visit reviewing the chart, time spent during the visit, and time spent after the visit on documentation reviewing laboratory results, diagnostic imaging, medications, performing a medically necessary evaluation, counseling on diagnoses, care coordination, ordering appro priate tests, ordering appropriate medications, review of tests performed by other providers, reporting test results with the patient, communication with other healthcare providers. [facility] Medical History (Updated 07/22/25 @ 14:49 by Nasra Tovar [facility]) Arthritis Colon cancer screening Hx of cancer of endometrium Kim syndrome Osteopenia after menopause Osteoporosis (~06/2025) PONV (postoperative nausea and vomiting) Primary osteoarthritis of hands, bilateral Right shoulder pain Surgical History (Updated 06/24/25 @ 11:23 by Willem Vega MA) H/O: hysterectomy History of total hysterectomy with bilateral salpingo-oophorectomy (BSO) Hx of colonoscopy (~04/2025) Family History (Updated 06/24/25 @ 10:58 by Willem Vega MA) Father No problems noted. Mother Asthma Maternal Aunt Diabetes Sister Ovarian cancer Social History (Updated 06/24/25 @ 11:13 by Willem Vega MA) Household Members: Spouse Both parents involved: No Caregiver staying overnight: No Housing: House Are you a primary physician assistant primary care to a significant other at home: No Do you presently have visiting nurse or other home services: No 75 years or older and lives alone: No Alcohol intake: current Alcohol intake frequency: holidays/special occasions only Patient Tobacco Use Status: Never used Tobacco e-Cigarette/Vaping Use: Never Used Second Hand Smoke Exposure: No Current occupational status: retired 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 Current occupational exposures/hazards: No Cognitive needs: No Hearing needs: No Vision needs: Yes (wear glasses) Questionnaire Medicare Wellness Checkup What [age] What gender do you identify with?: female During the past 4 weeks, how much have you been bothered by emotional problems such as feeling anxious, depressed, irritable, sad or downhearted, and blue?: not at all During the past 4 weeks, has your physical & emotional health limited your social activities with family, friends, neighbors, or groups?: not at all During the past 4 weeks, how much bodily pain have you generally had?: no pain During the past 4 weeks, was someone available to help you if you needed & wanted help?: yes, as much as I wanted During the past 4 weeks, what was the hardest physical activity you could do for at least 2 minutes?: moderate Can you get to places out of walking distance without help? (For eg., can you travel alone on buses, taxis or drive your car?): Yes Can you go shopping for groceries or clothes without someone's help?: Yes Can you prepare your own meals?: Yes Can you do your housework without help?: Yes Because of any health problems, do you need the help of another person with your personal care needs such as eating, bathing, dressing or getting around the house?: No Can you handle your own money without help?: Yes During the past 4 weeks, how would you rate your health in general?: very good During the past 4 weeks how have things been going for you?: pretty well Are you having difficulties driving your car?: no Do you always fasten your seat belt when you are in a car?: yes, usually During past 4 weeks, have you been bothered by the following: never: Falling or dizzy when standing up, Sexual problems?, Trouble eating well?, Teeth or denture problems?, Problems using the telephone? and Tiredness or fatigue? Have you fallen 2 or more times in the past year?: No Are you afraid of falling?: No Are you a smoker?: no During the past 4 weeks, how many drinks of wine, beer, or other alcoholic beverages did you have?: no alcohol at all Do you exercise for about 20 minutes 3 or more times a week?: yes, all the time Have you been given information to help with the following?: no: Hazards in your house that might hurt you? and no: Keeping track of your medications? How often do you have trouble taking medicines the way you have been told to take them?: I always take medicine as prescribed How confident are you that you can control & manage most of your health problems?: very confident What is your race?: White Activity of Daily Living Bathing - sponge bath, tub bath or shower: receives no assistance (gets in/out by self, if usual bathing means Dressing - getting clothes from closets & drawers, including inner/outer garments & fasteners.: gets clothes & gets completely dressed without help Toileting - going to the 'toilet room' for urine/bowel elimination & cleaning self/arranging clothes: goes to toilet room, cleans self, arranges clothes without help Transfer: moves in & out of bed and chair without help (may use support object) Continence: controls urination/bowel movements completely by self Feeding: feeds self without help Total Score: 0 Information obtained from: patient Using telephone: independent Traveling: independent Shopping: independent Preparing meals: independent Housework: independent Taking medicine: independent Managing money: independent PHQ-9 Over the last 2 weeks, how often have you been bothered by any of the following problems? 1. Little interest or pleasure in doing things: not at all 2. Feeling down, depressed, or hopeless: not at all 3. Trouble falling or staying asleep, or sleeping too much: not at all 4. Feeling tired or having little energy: not at all 5. Poor appetite or overeating: not at all 6. Feeling bad about yourself - or that you are a failure or have let yourself or your family down: not at all 7. Trouble concentrating on things, such as reading the newspaper or watching television: not at all 8. Moving or speaking so slowly that other people could have noticed. Or the opposite - being so fidgety or restless that you have been moving around a lot more than usual: not at all 9. Thoughts that you would be better off or of hurting yourself in some way: not at all Total score: 0 Depression Screening Interpretation: Negative Depression Screening Done: Yes 34161 - PHQ-9 Billing: Yes Source: Developed by Drs. Maverick Palomares, Rochelle Crump, Bebo Hawley and colleagues, with an educational chu from Done.. Office Procedures EKG [id number], Complete Vision Screening Right Eye: 20/50 Left Eye: 20/30 Bilateral: 20/25 Color: Pass Corrected: Pass (wearing glasses) 78294 - Vision Screening Results Reviewed Results Reviewed: [id number]/15/25 Result Units Range Interpretation Provider Comments White Blood Count 6.8 X10*3/uL (4.8-10.8) Red Blood Count 4.37 X10*6/uL (4.20-5.50) Hemoglobin 13.5 g/dl (12.0-16.0) Hematocrit 40.9 % (37.0-47.0) Mean Corpuscular Volume 93.6 fL (80.0-98.0) Mean Corpuscular Hemoglobin 30.9 pg (27.0-33.0) Mean Corpuscular Hemoglobin Concent 33.0 g/dl (31.0-35.0) Red Cell Distribution Width 12.5 % (11.0-16.0) Platelet Count 292 X10*3/uL (160-400) Mean Platelet Volume 10.1 fL (9.4-12.3) Nucleated RBC Absolute Count (auto) 0.000 X10*3/uL (0.0-0.012) Nucleated Red Blood Cells % (auto) 0.0 /100WBC (0.0-0.2) Sodium Level 141 mmol/L (135-145) Potassium Level 3.9 mmol/L (3.3-5.1) Chloride Level 107 mmol/L (96-108) Carbon Dioxide Level 27 mmol/L (22-29) Anion Gap 11 (12-20) Low Blood Urea Nitrogen 19 mg/dL (9-16) High Creatinine 0.97 mg/dL (0.5-1.4) Estimated Creatinine Clearance Calc Not Reportable Estimat Glomerular Filtration Rate 57 Random Glucose 94 mg/dL (60-115) Estimated Average Glucose 117 mg/dL Hemoglobin A1c Percent 5.7 % (<6.0) Calcium Level 9.6 mg/dL (8.4-10.2) Total Bilirubin 0.6 mg/dL (0.0-1.0) Aspartate Amino Transf (AST/SGOT) 25 U/L (5-31) Alanine Aminotransferase (ALT/SGPT) 22 U/L (0-31) Alkaline Phosphatase 77 U/L (39-117) Total Protein 7.3 g/dL (6.5-8.0) Albumin 4.4 g/dL (3.5-5.0) Triglycerides Level 115 mg/dL (<150) Cholesterol Level 190 mg/dL (<200) LDL Cholesterol, Calculated 121 mg/dL (<100) High HDL Cholesterol 46 mg/dL (>40) Vitamin B12 Level 422 pg/mL (200-900) 25-Hydroxy Vitamin D Total 34.0 ng/mL (>30) Folate 9.6 ng/mL (> or = 4.0) Thyroid Stimulating Hormone (TSH) 1.06 uIU/mL (0.32-4.0) Urine Creatinine 41.07 mg/dL Urine Microalbumin 5.0 mg/L Urine Microalbumin/Creatinine Ratio 12.1 ug/mg cr (<30) Assessment & Plan Assessment & Plan (1) Encounter for subsequent annual wellness visit (AWV) in Medicare patient: Onset Date: ~07/22/25 Code(s): Z00.00 - Encounter for general adult medical examination without abnormal findings (2) ACP (advance care planning): Code(s): Z71.89 - Other specified counseling (3) Elevated blood pressure reading in office without diagnosis of hypertension: Code(s): R03.0 - Elevated blood-pressure reading, without diagnosis of hypertension (4) Osteoporosis: Onset Date: ~06/2025 Code(s): M81.0 - Age-related osteoporosis without current pathological fracture Qualifiers: Osteoporosis type: unspecified Presence of current pathological fracture: unspecified Qualified Code(s): M81.0 - Age-related osteoporosis without current pathological fracture (5) HLD (hyperlipidemia): Comment: To reduce low-density lipoprotein (LDL) cholesterol, you can try making lifestyle changes to your diet, exercise, and other habits: Eat a heart-healthy diet Limit saturated and trans fats, and eat more foods with healthy fats, like nuts, seeds, and unsaturated oils. You can also try eating more soluble fiber, which can help reduce the amount of cholesterol your body absorbs. Foods high in soluble fiber include whole grains, fruits, and legumes. Exercise regularly Aim for at least 150 minutes of exercise per week, such as walking, swimming, or cycling. Maintain a healthy weight Losing weight can help lower LDL cholesterol, especially if you are overweight or obese. Manage stress Chronic stress can raise LDL cholesterol, so try to find healthy ways to manage it. Quit smoking Smoking can raise cholesterol and increase the risk of serious health problems. Get enough sleep Aim for 7 to 9 hours of sleep per night. You should also limit foods with cholesterol, which are found in animal products like liver, egg yolks, and whole milk dairy products. Code(s): E78.5 - Hyperlipidemia, unspecified Qualifiers: Hyperlipidemia type: mixed hyperlipidemia Qualified Code(s): E78.2 - Mixed hyperlipidemia (6) Prediabetes: Code(s): R73.03 - Prediabetes (7) KAYLYN (generalized anxiety disorder): Code(s): F41.1 - Generalized anxiety disorder (8) Insomnia: Code(s): G47.00 - Insomnia, unspecified Qualifiers: Insomnia type: psychophysiologic Qualified Code(s): F51.04 - Psychophysiologic insomnia Plan . Orders: Orders Comprehensive Met. Panel 6 Months E78.5 - Hyperlipidemia, unspecified, R73.03 - Prediabetes Hemoglobin A1c 6 Months E78.5 - Hyperlipidemia, unspecified, R73.03 - Prediabetes Lipid Panel 6 Months E78.5 - Hyperlipidemia, unspecified, R73.03 - Prediabetes Referrals Retail Team Member Nutrition Referral E78.5 - Hyperlipidemia, unspecified, R73.03 - Prediabetes Medications: New mirtazapine 7.5 mg PO BEDTIME 30 tabs 1RF Patient Instructions: Health screenings for women You should visit your health care provider from time to time, even if you are healthy. The purpose of these visits is to: Screen for medical issues Assess your risk for future medical problems Encourage a healthy lifestyle Update vaccinations and other preventive care services Help you get to know your provider in case of an illness Information Even if you feel fine, you should still see your provider for regular checkups. These visits can help you avoid problems in the future. For example, the only way to find out if you have high blood pressure is to have it checked regularly. High blood sugar and high cholesterol levels also may not have any symptoms in the early stages. A simple blood test can check for these conditions. There are specific times when you should see your provider or receive specific health screenings. [place] Preventive Services Task Force publishes a list of recommended screenings. Below are screening guidelines for women ages 18 to 39. BLOOD PRESSURE SCREENING Your blood pressure should be checked at least once every 3 to 5 years if: Your blood pressure is in the normal range (top number less than 120 mm Hg and bottom number less than 80 mm Hg) You don't have risk factors for high blood pressure Ask your provider if you need your blood pressure checked more often if: The top number is 120 to 129 mm Hg or the bottom number is 70 to 79 mm Hg You have diabetes, heart disease, kidney problems, are overweight, or have certain other health conditions You have a first-degree relative with high blood pressure You are Black You had high blood pressure during a If the top number is 130 mm Hg or greater or the bottom number is 80 mm Hg or greater, this is considered stage 1 hypertension. Schedule an appointment with your provider to learn how you can reduce your blood pressure. Watch for blood pressure screenings in your area. Ask your provider if you can stop in to have your blood pressure checked. BREAST CANCER SCREENING Experts do not agree about the benefits of breast self-exams in finding breast cancer or saving lives. Talk to your provider about what is best for you. A screening mammogram is not recommended for most women under age 40. Your provider may discuss and recommend mammograms, MRI scans, or ultrasounds if you have an increased risk for breast cancer, such as: A mother or sister who had breast cancer at a young age (most often starting screening earlier than the age the close relative was diagnosed) You carry a high-risk genetic marker CERVICAL CANCER SCREENING Cervical cancer screening should start at age 21 years unless your provider advises otherwise. After the first test: Women ages 21 through 29 should have a Pap test every 3 years. Exoprts do not agree on whether HPV testing is recommended for this age group. Women ages 30 through 65 should be screened with either a Pap test every 3 years or the HPV test every 5 years or both tests every 5 years (called cotesting ). Women who have been treated for precancer (cervical dysplasia) should continue to have Pap tests for 20 years after treatment or until age 65, whichever is longer. If you have had your uterus and cervix removed (total hysterectomy), and you have not been diagnosed with cervical cancer or precancer (high grade cervical neoplasia), you do not need cervical cancer screening. CHOLESTEROL SCREENING Cholesterol screening should begin at: Age 45 for women with no known risk factors for coronary heart disease Age 20 for women with known risk factors for coronary heart disease Repeat cholesterol screening should take place: Every 5 years for women with normal cholesterol levels More often if changes occur in lifestyle (including weight gain and diet) More often if you have diabetes, heart disease, kidney problems, or certain other conditions DIABETES SCREENING You should be screened for diabetes starting at age 35 and then repeated every 3 years if you have no risk factors for diabetes. Screening may need to start earlier and be repeated more often if you have other risk factors for diabetes, such as: You have a first degree relative with diabetes. You are overweight or have obesity. You have high blood pressure, prediabetes, or a history of heart disease. Screening for diabetes should be done if you are planning to become and you are overweight and have other risk factors such as high blood pressure. DENTAL EXAM Go to the dentist once or twice every year for an exam and cleaning. Your dentist will evaluate if you need more frequent visits. EYE EXAM Have an eye exam every 5 to 10 years before age 40. If you have vision problems, have an eye exam every 2 years or more often if recommended by your provider. You should have an eye exam that includes an examination of your retina (back of your eye) at least every year if you have diabetes. IMMUNIZATIONS Commonly needed vaccines include: Flu shot: get one every year. COVID-19 vaccine: ask your provider what is best for you. Tetanus-diphtheria and acellular pertussis (Tdap) vaccine: have one at or after age 19 as one of your tetanus-diphtheria vaccines if you did not receive it as an adolescent. Tetanus-diphtheria: have a booster (or Tdap) every 10 years. Varicella vaccine: receive 2 doses if you never had chickenpox or the varicella vaccine. Hepatitis B vaccine: receive 2, 3, or 4 doses, depending on your exact circumstances. Measles, mumps, and rubella (MMR) vaccine: receive 1 to 2 doses if you are not already immune to MMR. Your provider can tell you if you are immune. Ask your provider about the human papillomavirus (HPV) vaccine if: You have not received the HPV vaccine in the past You have not completed the full vaccine series (you should catch up on this shot) Ask your provider if you should receive other immunizations if you have certain health problems that increase your risk for some diseases such as pneumonia. INFECTIOUS DISEASE SCREENING Women who are sexually active should be screened for chlamydia and gonorrhea up until age 25. Women 25 years and older should be screened for chlamydia and gonorrhea if at high risk. Screening for hepatitis C: All adults ages 18 to 79 should get a one-time test for hepatitis C. people should be screened at every . Screening for human immunodeficiency virus (HIV): All people ages 15 to 65 should get a one-time test for HIV. Depending on your lifestyle and medical history, you may also need to be screened for infections such as syphilis and HIV, as well as other infections. PHYSICAL EXAM All adults should visit their provider from time to time, even if they are healthy. The purpose of these visits is to: Screen for disease Assess your risk of future medical problems Encourage a healthy lifestyle Update your vaccinations and other preventive care services Maintain a relationship with a provider in case of an illness Your height, weight, and BMI should be checked at every exam. During your exam, your provider may ask you about: Depression and anxiety Diet and exercise Alcohol and tobacco use Safety issues, such as using seat belts, smoke detectors, and intimate partner violence Your medicines and risk for interactions SKIN SELF-EXAM Your provider may check your skin for signs of skin cancer, especially if you're at high risk, such as if you: Have had skin cancer before Have close relatives with skin cancer Have a weakened immune system OTHER SCREENING Talk with your provider about colon cancer screening if you have a strong family history of colon cancer or polyps, or if you have had inflammatory bowel disease or polyps yourself. Routine bone density screening of women under 40 is not recommended. Quality Reporting (2019) Adult ([facility] 138/11/01/68) Smoking risk assessment performed?: Yes Patient Tobacco Use Status: Never used Tobacco Depression screening performed: Yes Screen Results: Yes Negative screen Systolic BP not done?: No Diastolic BP not done?: No BMI screening not done: No Sexual Activity Screening ([facility] 153) Sexually active?: No Immunizations ([facility] 147, 117) Annual Influenza Vaccine: Yes Measles Antibody Test: No Mumps Antibody Test: No Rubella Antibody Test: No Varicella Antibody Test: No Anti Hepatitis A IgG Antigen test: No Anti Hepatitis B Virus Surface Ab test: No Fall Risk Screening ([facility] 139) Last assessed Fall Risk: 07/22/25 Fall risk assessment: No Falls in past year Dementia Assessment ([facility] 149) Cognitive assessment recorded: Yes (0/28 on 6 CIT ) Assessment of cognition with standardized tool: Yes Depression/Bipolar (159/160/161/177) PHQ-9: Total score: 0 Ophthalmol:Cataracts Visual Acuity (133) Visual acuity exam performed: Yes (see results ) Coding Level of Care Code Medicare Subsequent (G0439) Est Pt Level 4 (16794) Diagnoses Encounter for subsequent annual wellness visit (AWV) in Medicare patient Z00.00 ACP (advance care planning) Z71.89 Elevated blood pressure reading in office without diagnosis of hypertension R03.0 Osteoporosis, unspecified osteoporosis type, unspecified pathological fracture presence M81.0 Osteoporosis type: unspecified Presence of current pathological fracture: unspecified Mixed hyperlipidemia E78.2 Hyperlipidemia type: mixed hyperlipidemia Prediabetes R73.03 KAYLYN (generalized anxiety disorder) F41.1 Psychophysiological insomnia F51.04 Insomnia type: psychophysiologic CPT Codes Advance Care Planning - Time spent: 16-45 minutes ([id number]) EKG - CPT: 14383-Nbufzmjyzjlvbzocx, Complete ([id number]) Vision Screening - Vision Screenin - Vision Screening ([id number]) Additional Codes PHQ-9 - 45645 - PHQ-9 Billing: Yes ([id number]) Advance Care Planning Advance Care Planning discussion: Exists, not on file Date of discussion: 07/22/25 Who was present: self Forms completed: Health Care Proxy, MOLST and Living will Time spent: 16-45 minutes Actual minutes spent: 16
[2025-07-22 13:22] VITALS: BP 142/80; PULSE 104; RESP 14; TEMP 36.4; O2SAT 100; BMI 24.4
[2025-07-22 14:30] VITALS: BP 122/70; PULSE 82
--- OUTSIDE RECORDS SUMMARY | 2025-07-22 15:59 | XMS_ITS | Patient Health Record ---
[facility] [place] Address [address] [place] [address] Care Team Providers Care Manager Web Application Name Role Phone Yovana Izaguirre Primary Care Provider Unavailabl e Black, Leticia Unavailable [phone] Allergies Allergen (clinical drug ingredient) Drug/Non Drug [...] Status Risk Notes Problem Acquired hallux valgus (64068961) Hallux valgus (acquired), left foot (M20.12) Active confirmed Problem Localized, primary osteoarthritis of the ankle and/or foot (606122226) Primary osteoarthrit is, right ankle and foot (M19.071) Active confirmed Problem Acquired hallux valgus (09454231) Hallux valgus (acquired), right foot (M20.11) Active confirmed Problem Acquired hammer toe of right foot ([id number]) Other hammer toe(s) (acquired), right foot (M20.41) Active confirmed Problem Acquired hammer toe of left foot (9603101061463535) Other hammer toe(s) (acquired), left foot (M20.42) Active confirmed Vital Signs Height 5ft 1in in 08/13/2024 Weight 128 lbs 08/13/2024 BMI 24.18 kg/m2 08/13/2024 Encounters Encounter Location Date Provider Diagnosis [facility] [address] [place] [address] 08/13/2024 Leticia Black Pain in right foot [...] Treatment Pending Test Test Name Order Date [id number] NAIL, 1-5 11/28/2021 Insurance Providers Payer Name Payer Address Payer Phone Subscriber Number Group Number Insured Name Patient Relationship to Insured Coverage Start Date Coverage End Date [employer] Medicare [id number] [address] [address] [place] [address] [id number] Monica Booker Self - patient is the insured Medical (General) History Medical History History ICD Code Arthritis Cancer Surgical History Surgery Date(Month/Year) hysterectomy, complete 01/08/2013 colonoscopy 2020 Hospitalization History Reason Date(Month/Year) [facility]- Bleeding- GI Dr - ruptured hemorroi ds 11/29
--- OUTSIDE RECORDS SUMMARY | 2025-07-22 15:59 | XMS_ITS | Clinical Summary ---
Author Organization [facility] Address [address] [place] [address] Care Team Providers Care Bindery Machine Setter Name Role Phone Unavailable Primary Care Provider Unavailabl e Social History Tobacco Use Types Packs/Day Years Used Date Smoking Tobacco: Never Assessed Comments Unknown Sex and Gender Information Value Date Recorded Sex Assigned at Not on file Legal Sex Female 6:44 AM EST Gender Identity Not on file Sexual Orientation Not on file Plan of Treatment Upcoming Encounters Date Type Department Care Team ([facility] st Contact Info) Description 11/17/2025 3:20 PM EDT Consult Breast Care [facility] [address] [place] [phone] Edouard Gaspar MD [address] [place] [address] Health Maintenance Due Date Last Done Comments Breast Cancer Screening 1955 DTaP,Tdap,and Td Vaccines (1 - Tdap) 1974 Pneumococcal Vaccine: 50+ Ye ars (1 of 1 - PCV) 2005 Zoster Vaccines (1 of 2) 2005 Depression Screening 09/10/2024 COVID-19 Vaccine (1 - 2024-2 6 season) 2025 Influenza Vaccine (#1) 2025 RSV [...] on patient's age to complete this topic Insurance [employer] MEDICARE
== END 2025-07-22 14:43 | disposition home or self-care (01) ==
LOC: HO.HMCFM 13:12
PROVIDERS: PCP Nurse Practitioner Family; Visit Provider Nurse Practitioner Family
DX: Z00.00 Encounter for general adult medical examination without abnormal findings (principal); M81.0 Age-related osteoporosis without current pathological fracture; E78.2 Mixed hyperlipidemia; R73.03 Prediabetes; R03.0 Elevated blood-pressure reading, without diagnosis of hypertension; F41.1 Generalized anxiety disorder; F51.04 Psychophysiologic insomnia; Z01.00 Encounter for examination of eyes and vision without abnormal findings

== ENCOUNTER → 2025-07-22 13:12 | Outpatient (BNVA) | payer MEDICARE, SELFPAY | PROVIDERS: PCP Nurse Practitioner Family; Visit Provider Nurse Practitioner Family | DX: Z00.00 Encounter for general adult medical examination without abnormal findings (principal); M85.89 Other specified disorders of bone density and structure, multiple sites; M81.0 Age-related osteoporosis without current pathological fracture; R03.0 Elevated blood-pressure reading, without diagnosis of hypertension; R73.03 Prediabetes; E78.2 Mixed hyperlipidemia; F41.1 Generalized anxiety disorder; F51.04 Psychophysiologic insomnia; Z71.89 Other specified counseling | CPT/HCPCS: 96127; 99212; 99497 ==

== ENCOUNTER 2025-07-24 09:36 | Outpatient (AMB) | payer MEDICARE, SELFPAY ==
[2025-07-24 09:49] VITALS: BP 130/84; PULSE 76; TEMP 36.4; O2SAT 97; BMI 24.0
--- NOTE | 2025-07-24 09:49 | AM.OFFWIN_ITS ---
Intake Vital Signs 07/24/25 09:49 Height 5 ft 1 in Weight 127 lb BMI 24.0 BP 130/84 Blood Pressure Location Rt brachial Position Sitting Pulse 76 Pulse Source Pulse Oximeter Temp 97.5 F Temp Source Oral Pulse Oximetry (%) 97 Oxygen Delivery Method Room Air Intake Visit Reasons: EP severe mid back pain Intake Note: EP complains of thoracic area (mid back) pain started yesterday after she left a box of stuff. The pain is sever and her ability to bend herself forward is restricted. Patient Tobacco Use Status: Never used Tobacco Allergies nitrofurantoin (Macrodantin) Allergy (Unknown, Verified 07/24/25 10:01) Unknown Do you need a note to return to daycare/school/sports/work: No HPI HPI Comments History of Present Illness Details History - The patient is a 70-year-old female pr esenting with mid back pain x2 days. - The back pain started after lifting he fam totes, with no specific injury recalled. - The pain is described as severe, affec ting sleep and daily activities. - The patient has tried heating pads and Aleve without relief. - There are no urinary symptoms, fever, or history of kidney stones. - Anxiety and insomnia are also present, with mirtazapine prescribed for anxiety. - The patient reports arthritis, which m ay contribute to the discomfort. Review of Systems - Musculoskeletal: Reports severe mid ba ck pain, denies low back or neck pain. - Genitourinary: Denies urinary symptoms , such as hematuria or dysuria. - Neurological: Reports insomnia, denies any neurological deficits. All systems reviewed and are unremarkable except as noted in HPI Physical Exam General: cooperative, healthy appearing and comfortable, patient oriented x3 Head: Yes normal to inspection and Yes normocephalic General nose exam: Normal external nose present Face and sinus: Yes normal facial exam Effort & Inspection: normal respiratory effort and able to speak in complete sentences Back/spine: no CVA tenderness bilaterally cervical, thoracic and lumbar spine normal to inspection cervical ROM normal, thoracic ROM normal, lumbar ROM normal no Cervical, thoracic or lumbar spine tenderness TTP on thoacic back, bilaterally can touch toes with no exacerbation of pain Extremities: moving extremities normally Neuro: A&O x3, gait normal [facility] Medical History (Updated 07/24/25 @ 10:11 by Adrienne Young PA-C) Kim syndrome Osteoporosis (~06/2025) Colon cancer screening Right shoulder pain Osteopenia after menopause Primary osteoarthritis of hands, bilateral PONV (postoperative nausea and vomiting) Hx of cancer of endometrium Arthritis Surgical History (Updated 06/24/25 @ 11:23 by Willem Vega MA) H/O: hysterectomy Hx of colonoscopy (~04/2025) History of total hysterectomy with bilateral salpingo-oophorectomy (BSO) Family History (Updated 06/24/25 @ 10:58 by Willem Vega MA) Father No problems noted. Mother Asthma Maternal Aunt Diabetes Sister Ovarian cancer Social History (Updated 06/24/25 @ 11:13 by Willem Vega MA) Household Members: Spouse Both parents involved: No Caregiver staying overnight: No Housing: House Are you a primary career coach to a significant other at home: No Do you presently have visiting nurse or other home services: No 75 years or older and lives alone: No Alcohol intake: current Alcohol intake frequency: holidays/special occasions only Patient Tobacco Use Status: Never used Tobacco e-Cigarette/Vaping Use: Never Used Second Hand Smoke Exposure: No Current occupational status: retired 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 Current occupational exposures/hazards: No Cognitive needs: No Hearing needs: No Vision needs: Yes (wear glasses) Physical Exam Vital Signs: Last Vital Signs Temp 97.5 F 07/24/25 09:49 Pulse 76 07/24/25 09:49 BP 130/84 07/24/25 09:49 Pulse Ox 97 07/24/25 09:49 Oxygen Delivery Method Room Air 07/24/25 09:49 BMI result Body Mass Index 24.0 Assessment & Plan Assessment & Plan (1) Acute thoracic back pain: Code(s): M54.6 - Pain in thoracic spine Qualifiers: Back pain laterality: bilateral Qualified Code(s): M54.6 - Pain in thoracic spine Plan: Plan - Likely musculoskeletal due to lifting heavy boxes. - Prescribed meloxicam for pain management, advising against concurrent use with other NSAIDs. - Prescribe a muscle relaxant to be taken at bedtime to aid sleep and alleviate muscle tension, can take 1-2 tabs. - Advise rest and monitor symptoms, with follow-up if pain persists or worsens. - Consider physical therapy if symptoms do not improve with medication and rest. Patient was informed and verbally consented to the use of an ambient scribe for clinic note documentation during this visit. Medications: New meloxicam 15 mg PO DAILY PRN 15 tabs 0RF pain, moderate cyclobenzaprine 5 mg PO Q8H PRN 20 tabs 0RF Muscle Spasm Coding Level of Care Code Est Pt Level 3 (13902) Diagnoses Acute bilateral thoracic back pain M54.6 Back pain laterality: bilateral
--- OUTSIDE RECORDS SUMMARY | 2025-07-24 10:38 | XMS_ITS | Clinical Summary ---
Author Organization [facility] Address [address] [place] [address] Care Team Providers Care Payable Representative Name Role Phone Unavailable Primary Care Provider Unavailabl e Social History Tobacco Use Types Packs/Day Years Used Date Smoking Tobacco: Never Assessed Comments Unknown Sex and Gender Information Value Date Recorded Sex Assigned at Not on file Legal Sex Female 6:44 AM EST Gender Identity Not on file Sexual Orientation Not on file Plan of Treatment Upcoming Encounters Date Type Department Care Team ([facility] st Contact Info) Description 11/17/2025 3:20 PM EDT Consult Breast Care [facility] [address] [place] [phone] Edouard Gaspar MD [address] [place] [address] Health Maintenance Due Date Last Done Comments [...] complete this topic Insurance [place] [address]
== END 2025-07-24 10:18 | disposition home or self-care (01) ==
PROVIDERS: PCP Nurse Practitioner Family; Visit Provider Physician Assistant
DX: M54.6 Pain in thoracic spine (principal)

== ENCOUNTER → 2025-07-24 09:36 | Outpatient (BNVA) | payer MEDICARE, SELFPAY | PROVIDERS: PCP Nurse Practitioner Family; Visit Provider Physician Assistant | DX: M54.6 Pain in thoracic spine (principal) | CPT/HCPCS: 99212 ==

== ENCOUNTER 2025-07-28 15:26 | Outpatient (AMB) | payer MEDICARE, SELFPAY ==
--- NOTE | 2025-07-28 15:28 | MHC.OFFVIS ---
Vital Signs 07/28/25 15:35 Height 5 ft 1 in Weight 128 lb 4.944 oz BMI 24.2 BP 120/80 Blood Pressure Location Lt brachial Position Sitting Pulse 88 Pulse Source Pulse Oximeter Pulse Oximetry (%) 98 Oxygen Delivery Method Room Air Intake Visit Reasons: discuss bone density Intake Note: Patient presents to discuss Bone Density results. Allergies nitrofurantoin (Macrodantin) Allergy (Unknown, Verified 07/28/25 15:34) Unknown Medication List - Last Reconciled 07/28/25 by Peggy Fraser MD acetaminophen ER (Tylenol Arthritis Pain) 650 - 1,300 mg (1 - 2 x 650 mg) PO Q12H PRN alendronate 70 mg PO QWEEK 90 days calcium carbonate (Calcium 600) 600 mg PO BID cyclobenzaprine 5 mg PO Q8H PRN famotidine (Pepcid) 40 mg PO BEDTIME PRN meloxicam 15 mg PO DAILY PRN mirtazapine 7.5 mg PO BEDTIME naproxen sodium (Aleve) 220 mg PO BID PRN HPI Comments Details: Patient is a 70-year-old female who presents for follow up management of her osteoarthritis. Interval History: Last seen 07/01/2025 with me - Not on any DMARDs - Complaining of bilateral hand pain - Knees with crepitation - Did not go to PT but shoulders improved - DEXA ordered Today - Not on DMARDs - DEXA shows worsening bone density and osteoporosis Rheumatologic History: Patient refer to 03/2020 for hand pain. Evaluation at that time found the hand pain to be consistent with osteoarthritis. She has been manage with daily Tylenol and conservative management. Current Rheumatology Medication(s): Tylenol Arthritis pain Ibuprofen p.r.n. Calcium 600 mg p.o. twice a day PFSH Medical History (Updated 07/28/25 @ 16:14 by Peggy Fraser MD) Kim syndrome Osteoporosis (~06/2025) Colon cancer screening Right shoulder pain Osteopenia after menopause Primary osteoarthritis of hands, bilateral PONV (postoperative nausea and vomiting) Hx of cancer of endometrium Arthritis Surgical History H/O: hysterectomy Hx of colonoscopy (~04/2025) History of total hysterectomy with bilateral salpingo-oophorectomy (BSO) Family History Father No problems noted. 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 Current occupational exposures/hazards: No Cognitive needs: No Hearing needs: No Vision needs: Yes (wear glasses) Review of Systems Narrative Review of Systems Constitutional: Denies fever, chills, weight loss ENT: Denies vision changes, eye pain or eye redness, dental caries, dry mouth GI: Denies nausea, vomiting, diarrhea, abdominal pain, change in BM Pulm: Denies SOB, EVANS, hemoptysis, wheezing Cards: Denies chest pain, palpitations Skin: Denies Raynaud's, rash, nail changes, photosensitivity, [employer] DIRECT[employer]: Denies headaches, weakness, paresthesias, recurrent falls MSK: as per HPI All other systems reviewed and are unremarkable except noted above Physical Exam Exam Exam: Vital signs reviewed Physical Examination CONSTITUITIONAL Patient alert and cooperative. Well appearing and in no apparent painful distress MSK Hands Right Hand: Able to make a fist. No swelling or tenderness to palpation of the MCPs, PIPs or DIPs. No deformities noted. Left Hand: Able to make a fist. No swelling or tenderness to palpation of the MCPs, PIPs or DIPs. No deformities noted. Wrists Right Wrist: Full ROM to flexion and extension. No swelling or TTP Left Wrist: Full ROM to flexion and extension. No swelling or TTP Elbows Right Elbow: Full ROM. No swelling or TTP. No TTP of the medial epicondyle. No TTP of the lateral epicondyle Left Elbow: Full ROM. No swelling or TTP. No TTP of the medial epicondyle. No TTP of the lateral epicondyle Shoulders Right shoulder: Full ROM. No swelling noted. No TTP of the AC joint. No TTP of the subacromial bursa. No TTP of the posterior shoulder Left shoulder: Full ROM. No swelling noted. No TTP of the AC joint. No TTP of the subacromial bursa. No TTP of the posterior shoulder Hips Right hip: Good ROM. No pain elicited with hip flexion/internal rotation/external rotation Left hip: Good ROM. No pain elicited with hip flexion/internal rotation/external rotation Hip bursa: No tenderness to palpation bilaterally Knees Right knee: Full ROM. No swelling noted. No TTP of the knee joint line. No TTP of pes anserine bursa Left knee: Full ROM. No swelling noted. No TTP of the knee joint line. No TTP of pes anserine bursa. Ankles Right ankle: Good ankle dorsiflexion and plantar flexion. No swelling. No TTP of the ankle joint Left ankle: Good ankle dorsiflexion and plantar flexion. No swelling. No TTP of the ankle joint Feet Right foot: Negative squeeze test Left foot: Negative squeeze test Tender points? No tenderness to palpation of the bilateral trapezius, supraspinatus, anterior costochondral junctions, bilateral suboccipital muscle insertions SKIN No rashes Vital Signs: Last Vital Signs Pulse 88 07/28/25 15:35 BP 120/80 07/28/25 15:35 Pulse Ox 98 07/28/25 15:35 Oxygen Delivery Method Room Air 07/28/25 15:35 BMI result Body Mass Index 24.2 Vital signs reviewed Physical Examination CONSTITUITIONAL Patient alert and cooperative. Well appearing and in no apparent painful distress MSK Hands Right Hand: Able to make a fist. No swelling or tenderness to palpation of the MCPs, PIPs or DIPs. Left Hand: Able to make a fist. No swelling or tenderness to palpation of the MCPs, PIPs or DIPs. Herbedens and Bouchards nodes noted bilaterally Wrists Right Wrist: Full ROM to flexion and extension. No swelling or TTP Left Wrist: Full ROM to flexion and extension. No swelling or TTP Elbows Right Elbow: Full ROM. No swelling or TTP. No TTP of the medial epicondyle. No TTP of the lateral epicondyle Left Elbow: Full ROM. No swelling or TTP. No TTP of the medial epicondyle. No TTP of the lateral epicondyle Shoulders Right shoulder: Full ROM. No swelling noted. No TTP of the AC joint. No TTP of the subacromial bursa. No TTP of the posterior shoulder Left shoulder: Full ROM. No swelling noted. No TTP of the AC joint. No TTP of the subacromial bursa. No TTP of the posterior shoulder Hip bursa: Tenderness to palpation bilaterally Knees Right knee: Full ROM. No swelling noted. No TTP of the knee joint line. No TTP of pes anserine bursa Left knee: Full ROM. No swelling noted. No TTP of the knee joint line. No TTP of pes anserine bursa. Crepitations felt bilaterally Ankles Right ankle: Good ankle dorsiflexion and plantar flexion. No swelling. No TTP of the ankle joint Left ankle: Good ankle dorsiflexion and plantar flexion. No swelling. No TTP of the ankle joint Feet Right foot: Negative squeeze test Left foot: Negative squeeze test Tender points? No tenderness to palpation of the bilateral trapezius, supraspinatus, anterior costochondral junctions, bilateral suboccipital muscle insertions SKIN No rashes Results Reviewed Results Reviewed: Laboratory Tests 06/24/25 12:02 WBC 6.8 RBC 4.37 Hgb 13.5 Hct 40.9 Plt Count 292 Sodium 141 Potassium 3.9 Chloride 107 Carbon Dioxide 27 BUN 19 H Creatinine 0.97 AST 25 ALT 22 25-OH Vitamin D Total 34.0 DEXA 06/2025 FINDINGS: The bone mineral density of the lumbar spine is 0.871 g/cm2, corresponding to a T-score of -2.5, and a Z-score of -0.6. This is indicative of osteoporosis. This represents a BMD change of -5.7% compared to the prior exam. This is statistically significant. The bone mineral density of the left total hip is 0.735 g/cm2, corresponding to a T-score of -2.2, and a Z-score of -0.5. This is indicative of osteopenia. This represents a BMD change of -0.5% compared to the prior exam. This is not statistically significant. The bone mineral density of the left femoral neck is 0.666 g/cm2, corresponding to a T-score of -2.7, and a Z-score of -0.8. This is indicative of osteoporosis. This represents a BMD change of -5.3% compared to the prior exam. IMPRESSION: Based on bone mineral density, and according to World Health Organization (WHO) criteria, the diagnosis is consistent with osteoporosis. Assessment & Plan Assessment & Plan (1) Polyarticular osteoarthritis: Code(s): M15.9 - Polyosteoarthritis, unspecified Plan: #Polyarticular OA Stable (2) Osteoporosis: Onset Date: ~06/2025 Comment: DEXA 09/2022. AP Spine -1.5, Left femur neck -2.4, Left femur total -2.1. (FRAX 13.4/3) DEXA 06/2025. AP Spine -2.5, Left femur neck -2.7, Left femur total -2.2 Code(s): M81.0 - Age-related osteoporosis without current pathological fracture Category: Medical Qualifiers: Osteoporosis type: unspecified Presence of current pathological fracture: unspecified Qualified Code(s): M81.0 - Age-related osteoporosis without current pathological fracture Plan: #Osteoporosis Patient is a 70 year old female with new diagnosis of osteoporosis Discussed starting bisphophonates Plan - Start alendronate 70mg PO weekly - Continue Ca-Vit D - RTC 6 months - Labs before visit: Ca, Cr, Vit D (3) Encounter for ongoing osteoporosis therapy, bisphosphonates: Code(s): M81.0 - Age-related osteoporosis without current pathological fracture; Z79.83 - residential (current) use of bisphosphonates Plan: #Long-term Use of Bisphosphonates Risks and benefits of bisphosphonates in the management of osteoporosis Benefits include improved bone density, decreased fracture risk Risks include atypical femoral fractures, GI upset, esophageal strictures Contraindicated in patients with a creatinine clearance < 30 to 35 ml/min Keep vitamin-D at least 35 ng/mL Plan I spent 20 minutes reviewing the record and labs, taking a history, examining the patient, discussing the treatment plan and documenting in the medical record Orders: Orders Calcium 6 Months Z79.899 - Other long term acute care registered nurse (current) drug therapy Creatinine 6 Months Z79.899 - Other long term acute care registered nurse (current) drug therapy Vitamin D 25-OH Total 6 Months Z79.899 - Other group home (current) drug therapy Medications: New alendronate Take in the AM with a full glass of water, sit upright for 30mins after taking 70 mg PO QWEEK 13 tabs 1RF 90 days M81.0 - Age-related osteoporosis without current pathological fracture Coding Level of Care Code Est Pt Level 3 (42566) Complex EM visit Add On G2211 Diagnoses Polyarticular osteoarthritis M15.9 Osteoporosis, unspecified osteoporosis type, unspecified pathological fracture presence M81.0 Osteoporosis type: unspecified Presence of current pathological fracture: unspecified Encounter for ongoing osteoporosis therapy, bisphosphonates M81.0; Z79.83
[2025-07-28 15:35] VITALS: BP 120/80; PULSE 88; O2SAT 98; BMI 24.2
== END 2025-07-28 16:20 | disposition home or self-care (01) ==
LOC: HO.RHES 15:27
PROVIDERS: PCP Nurse Practitioner Family; Visit Provider Student in an Organized Health Care Education/Training Program
DX: M15.9 Polyosteoarthritis, unspecified (principal); M81.0 Age-related osteoporosis without current pathological fracture; Z79.83 Long term (current) use of bisphosphonates
CPT/HCPCS: 99213; G2211

== ENCOUNTER → 2025-07-28 | Outpatient (BNVA) | payer MEDICARE, SELFPAY | PROVIDERS: PCP Nurse Practitioner Family; Visit Provider Student in an Organized Health Care Education/Training Program | DX: M15.9 Polyosteoarthritis, unspecified (principal); M81.0 Age-related osteoporosis without current pathological fracture; Z79.83 Long term (current) use of bisphosphonates | CPT/HCPCS: 99212 ==

== ENCOUNTER 2025-07-30 12:11 | Outpatient (REF) | payer MEDICARE, SELFPAY ==
--- NOTE | ~2025-07-30 | MM_ITS ---
EXAMINATION: MM DIAGNOSTIC DIGITAL BREAST TOMOSYNTHESIS, BILATERAL CLINICAL INFORMATION: Patient previously had bilateral breast pain. Patient does not have any pain today. Patient had diffuse pain no focal pain. COMPARISON: Mammography: Comparison is made with relevant prior exams. TECHNIQUE: Digital breast mammography with tomosynthesis is performed in both the craniocaudal and mediolateral oblique views along with computer-aided detection (CAD). FINDINGS: There are scattered areas of fibroglandular density. There are no significant masses, abnormal calcifications, or other abnormalities. Results are provided to the patient at time of visit by the technologist. MM/MM tomosynthesis diagnostic BI IMPRESSION: There are no significant changes from prior study. If patient has focal pain a diagnostic ultrasound can be ordered and performed. ASSESSMENT: BI-RADS Category 1: Negative RECOMMENDATION: 1 year F/U This patient's information was entered into a reminder system with a target due date for their next mammogram. Electronically signed by: Angie Brewster DO 07/30/2025 02:01 PM DANNIE MORRISON
== END 2025-07-30 12:12 | disposition home or self-care (01) ==
LOC: HO.MAMMO 12:11
PROVIDERS: PCP Nurse Practitioner Family; Visit Provider Nurse Practitioner Family
DX: N64.4 Mastodynia (principal); Z15.07 Genetic susceptibility to malignant neoplasm of urinary tract; Z15.09 Genetic susceptibility to other malignant neoplasm; Z85.42 Personal history of malignant neoplasm of other parts of uterus; Z15.060 Genetic susceptibility to colorectal cancer; Z15.068 Genetic susceptibility to other malignant neoplasm of digestive system
CPT/HCPCS: 77062; 77066

== ENCOUNTER → 2025-07-30 12:30 | Outpatient (BNV) | payer MEDICARE, SELFPAY | PROVIDERS: PCP Nurse Practitioner Family; Visit Provider Internal Medicine | DX: N64.4 Mastodynia (principal) | CPT/HCPCS: 77066; G0279 ==

== ENCOUNTER 2025-08-31 13:00 | Outpatient (AMB) | payer MEDICARE, SELFPAY ==
--- NOTE | 2025-08-31 13:02 | A.OFFPC_ITS ---
Vital Signs 08/31/25 13:13 08/31/25 13:46 Height 5 ft 1 in Weight 126 lb BMI 23.8 BP 146/80 H 142/84 H Blood Pressure Location Rt brachial Rt brachial Position Sitting Sitting Respiration 14 Pulse 85 Pulse Source Pulse Oximeter Temp 97.5 F Temp Source Oral Pulse Oximetry (%) 99 Oxygen Delivery Method Room Air Intake Visit Reasons: 6 weeks fu on mood/bp/insomnia Intake Note: Follow up on htn and insomnia. Cryptological Technician Required: No Allergies nitrofurantoin (Macrodantin) Allergy (Unknown, Verified 08/31/25 13:03) Unknown mirtazapine Adverse Reaction (Mild, Verified 08/31/25 13:37) dry mouth Medication List - Last Reconciled 08/31/25 by YISEL Aguilar- acetaminophen ER (Tylenol Arthritis Pain) 650 - 1,300 mg (1 - 2 x 650 mg) PO Q12H PRN alendronate 70 mg PO QWEEK 90 days calcium carbonate (Calcium 600) 600 mg PO BID cyclobenzaprine 5 mg PO Q8H PRN famotidine (Pepcid) 40 mg PO BEDTIME PRN meloxicam 15 mg PO DAILY PRN mirtazapine 7.5 mg PO BEDTIME naproxen sodium (Aleve) 220 mg PO BID PRN Tobacco use date assessed: 08/31/25 Fall risk assessment: No Falls in past year Last assessed Fall Risk: 08/31/25 Dental Screening Dental Screen Date: 08/31/25 Did you have a dental visit in the last 12 months?: Yes Did you have a dental problem in the last 6 months where you did not have access to dental care?: No Was dental information given to patient?: Patient has dentist HPI HPI Comments History of Present Illness Details 70 y/o F with Oa multiple sites, osteopo rosis, Kim syndrome , hx of uterine and endometrial cancer,prediabetes (MSH6 mutation) SurgHx: SONJA FHx: sister w/ cervical ca; children with celiacs SocHx: ,dog passed way Health Maintenance: See scanned preventative medicine assessment with personalized health plan and screening schedule. Mammo 10/2024 DEXA 06/2025 MM/XR DEXA axial skeleton IMPRESSION: Based on bone mineral density, and according to World Health Organization (WHO) criteria, the diagnosis is consistent with osteoporosis Colon 2024 + polyp, early celiacs ? PAP active w/ refrigerator room clerk Vaccines: Flu 05/2025, Tdap 06/24/25 AAA screen: NA EKG: done today NSR [place] of Care: rheum [facility] GI Inspector Open Die/Onc Optho 08/2025 Dem[place] Sep 2025 History of Present Illness The patient is a 70 year old female presenting for a follow-up on mood, blood pressure, and insomnia. Hypertension: - The patient monitors her blood pressur e daily, noting fluctuations. - Her readings have been as high as 145 mmHg systolic and 96 mmHg diastolic, with other readings in the 130s, 120s, and 1-teens. - She believes her current dental pain c ontributes to the blood pressure elevations. Insomnia and Mood disorder: - The patient was started on mirtazapine at her last visit for mood and sleep. - She reports that her sleep is variable , with good nights and bad nights, and she has not noticed an improvement in her mood. - She developed intolerable dry mouth, w hich she attributes to mirtazapine, and was advised by her pharmacist not to stop it without talking to her doctor. Prediabetes: - The patient is aware she has prediabet es and is actively trying to manage her diet. - She has switched to sugar-free coffee creamer. - She has an upcoming appointment with a semi conductor assembler. Dental Issues: - The patient reports significant dental pain from two wisdom teeth that need to be pulled and another tooth that requires a root canal. - The pain is constant, severe, and tend er to touch. - She is concerned about the cost of the procedures and the risk of jaw fracture during extraction due to her osteoporosis. Osteoporosis: - The patient has a known diagnosis of o steoporosis. - She takes Fosamax on an as-needed basi s, particularly when eating spicy foods. - She reports having a large supply of F osamax at home. - She recently had a fall at [place] but sustained only a scrape and no fractures. Health Maintenance: - The patient has scheduled follow-up ap pointments with a semi conductor assembler, a supervisor advice in September, and a register of deeds. - She recently had an eye exam and was t old her vision is almost 20/20. - She reports difficulty in scheduling a colonoscopy, stating it took nine months to get a previous appointment. Review of Systems - HEENT: Reports severe xerostomia. Repo rts severe dental pain. Reports good vision, almost 20/20. - Psychiatric: Reports variable sleep an d mood. Reports anxiety related to pain and blood pressure readings. Reports transient forgetfulness, which she associates with normal aging. - Musculoskeletal: She has osteoporosis. She reports a past hip pain that was attributed to arthritis. She denies injury from a recent fall, noting only a scrape. Physical Exam General: Well developed, well nourished, in no acute distress. Appears stated age. Head: Normocephalic, atraumatic. Eyes: Pupils are equal, round and reactive to light and accommodation. Conjunctivae are clear. Lungs: Clear to auscultation bilaterally. No rales, rhonchi or wheeze noted. Good air flow in all torres. Heart: Regular rate and rhythm. No murmurs, click, rubs or gallops are noted. Musculoskeletal: Joints are nontender, without swelling, redness, or effusions. Pulses: Peripheral pulses are equal and palpable bilaterally. Extremities: No clubbing, cyanosis nor edema is noted. Psych: Mood and affect appropriate, but patient reports no improvement in mood despite medication. Results - Home Blood Pressure Monitoring: Shows fluctuating readings with a systolic high of 145 mmHg and a diastolic high of 96 mmHg. - Recent ophthalmology exam: Revealed ne ar 20/20 vision. Medical Decision Making The patient is a 70-year-old female presenting for follow-up of her blood pressure, mood, and insomnia. Her home blood pressure logs and in-office reading of 142/84 mmHg are borderline elevated. Given that she is experiencing signi ficant dental pain, which is a likely contributor to her elevated blood pressure and poor sleep, the decision is to defer initiation of antihypertensive medication at this time. The patient was started on mirtazapine at her last visit, but she has developed intolerable dry mouth, which is a common side effect of this medication. As she reports no significant improvement in her mood or sleep, we will discontinue mirtazapine. I have added this as an adverse reaction to her chart to prevent re-prescription. We will hold off on trying any new psychotropic medications until her dental pain is resolved. The plan is for her to continue monitoring her blood pressure at home weekly. If her readings are consistently greater than 140 systolic or 90 diastolic, she is to contact me via the patient portal to discuss starting medication. She is encouraged to proceed with her dental work and will follow up in the office in January. Plan 1. elevated blood pressure - The patient's blood pressure is border line elevated, which is likely exacerbated by her current dental pain. - She will continue to monitor her blood pressure at home at least once a week. - No antihypertensive medication will be started at this time. - She should send a portal message if he r blood pressure is consistently greater than 140 mmHg systolic or 90 mmHg diastolic. - She will follow up in January to reevaluat e. 2. Adverse Drug Reaction - Mirtazapine has been added to the the medical center ent's allergy list as an adverse reaction causing dry mouth. 3. Dental Pain - The patient is encouraged to address h er dental issues, as the pain is a likely contributor to her elevated blood pressure and poor sleep. 4. Prediabetes - The patient will continue with dietary modifications and will proceed with her scheduled semi conductor assembler appointment. 5. Health Maintenance - The patient is to keep her upcoming ap pointments with the semi conductor assembler, rheumatology, dermatology, and gynecology. - Follow-up is scheduled for January. 6. Insomnia And Mood Disorder - Mirtazapine will be discontinued due t o the intolerable side effect of xerostomia. - No alternative medication will be tria led at this time, pending resolution of her dental pain which is likely affecting her sleep. Patient Instructions - You can stop taking the mirtazapine me dication. It is likely causing your severe dry mouth. - Continue to check your blood pressure at home at least once a week and keep a record of the numbers. - If your blood pressure is consistently higher than 140 on the top number or 90 on the bottom number, please send a message through the patient portal. - It is very important to see your denti st to take care of your tooth pain. This pain is likely making your blood pressure high and causing you to sleep poorly. - Keep your upcoming appointments with fanny izquierdo semi conductor assembler, the skin doctor (dermatology), and your FEATHER DRYING MACHINE OPERATOR. - Please schedule a follow-up appointmen t to be seen here in January. Consent Patient was informed and verbally consented to the use of an ambient scribe for clinic note documentation during this visit. Total time spent caring for the patient today was 30 minutes. This includes time spent before the visit reviewing the chart, time spent during the visit, and time spent after the visit on documentation, reviewing laboratory results, diagnostic imaging, medications, performing a medically necessary evaluation, counseling on diagnoses, care coordination, ordering appropriate tests, ordering appropriate medications, review of tests performed by other providers, reporting test results with the patient, communication with other healthcare providers. [facility] Medical History (Updated 07/28/25 @ 16:14 by Peggy Fraser MD) Arthritis Colon cancer screening Hx of cancer of endometrium Kim syndrome Osteopenia after menopause Osteoporosis (~06/2025) PONV (postoperative nausea and vomiting) Primary osteoarthritis of hands, bilateral Right shoulder pain Surgical History H/O: hysterectomy History of total hysterectomy with bilateral salpingo-oophorectomy (BSO) Hx of colonoscopy (~04/2025) Family History Father No problems noted. 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 Current occupational exposures/hazards: No Cognitive needs: No Hearing needs: No Vision needs: Yes (wear glasses) Questionnaire Thrive Questionnaire Date Thrive assessed: 08/27/25 I am a: Patient What is your living situation today?: I have a steady place to live Within the past 12 months, did the food you bought not last and you didn't have the money to get more?: Never true Within the past 12 months, did you worry whether your food would run out before you got money to buy more?: Never true Do you have trouble paying for medicines?: No Do you have trouble getting transportation to medical appointments?: No Do you have trouble paying your heating and electricity bill?: No Do you have trouble taking care of your child, family member or friend?: No Do you have trouble with day-to-day activities such as bathing, preparing meals, shopping, managing finances, etc.?: No Are you currently unemployed and looking for a job?: No Are you interested in more education?: No Currently or been in a relationship where the following occur: No concerns reported THRIVE Score: 0 KAYLYN-7 AMB Questionnaire KAYLYN-7 Date KAYLYN - 7 assessed: 06/24/25 Source: Developed by Drs. Maverick Palomares, Rochelle Crump, Bebo Hawley and colleagues, with an educational chu from [employer]. Physical exam (Primary Care) Vital Signs: Last Vital Signs Temp 97.5 F 08/31/25 13:13 Pulse 85 08/31/25 13:13 Resp 14 08/31/25 13:13 BP 142/84 H 08/31/25 13:46 Pulse Ox 99 08/31/25 13:13 Oxygen Delivery Method Room Air 08/31/25 13:13 BMI result Body Mass Index 23.8 Tobacco/Smoking Status: Tobacco use Status Tobacco use date assessed 08/31/25 08/31/25 13:03 Patient Tobacco Use Status Never used Tobacco 08/31/25 13:03 e-Cigarette/Vaping Use Never Used 08/31/25 13:03 Thrive Assessment: Date of Thrive Assessment Date Thrive assessed 08/27/25 08/31/25 13:03 Currently or been in a relationship where the following occur: No concerns reported Coding Level of Care Code Est Pt Level 4 (12294) Add On Problem Visit Only Diagnoses Elevated blood pressure reading in office without diagnosis of hypertension R03.0 Dry mouth R68.2 Psychophysiological insomnia F51.04 Insomnia type: psychophysiologic KAYLYN (generalized anxiety disorder) F41.1 Prediabetes R73.03 Osteoporosis, unspecified osteoporosis type, unspecified pathological fracture presence M81.0 Osteoporosis type: unspecified Presence of current pathological fracture: unspecified Assessment & Plan Assessment & Plan (1) Elevated blood pressure reading in office without diagnosis of hypertension: Code(s): R03.0 - Elevated blood-pressure reading, without diagnosis of hypertension Category: Medical (2) Dry mouth: Code(s): R68.2 - Dry mouth, unspecified (3) Insomnia: Code(s): G47.00 - Insomnia, unspecified Category: Medical Qualifiers: Insomnia type: psychophysiologic Qualified Code(s): F51.04 - Psychophysiologic insomnia (4) KAYLYN (generalized anxiety disorder): Code(s): F41.1 - Generalized anxiety disorder Category: Medical (5) Prediabetes: Code(s): R73.03 - Prediabetes Category: Medical (6) Osteoporosis: Onset Date: ~06/2025 Comment: DEXA 09/2022. AP Spine -1.5, Left femur neck -2.4, Left femur total -2.1. (FRAX 13.4/3) DEXA 06/2025. AP Spine -2.5, Left femur neck -2.7, Left femur total -2.2 Code(s): M81.0 - Age-related osteoporosis without current pathological fracture Category: Medical Qualifiers: Osteoporosis type: unspecified Presence of current pathological fracture: unspecified Qualified Code(s): M81.0 - Age-related osteoporosis without current pathological fracture Plan . Medications: Discontinued mirtazapine Discontinued Reason: Doctor's Order 7.5 mg PO BEDTIME 30 tabs 1RF
[2025-08-31 13:13] VITALS: BP 146/80; PULSE 85; RESP 14; TEMP 36.4; O2SAT 99; BMI 23.8
[2025-08-31 13:46] VITALS: BP 142/84
--- OUTSIDE RECORDS SUMMARY | 2025-08-31 16:20 | XMS_ITS | Clinical Summary ---
Author Organization [facility] Address [address] [place] [address] Care Team Providers Care Advanced Manufacturing Consultant Name Role Phone Unavailable Primary Care Provider Unavailabl e Social History Tobacco Use Types Packs/Day Years Used Date Smoking Tobacco: Never Assessed Comments Unknown Sex and Gender Information Value Date Recorded Sex Assigned at Not on file Legal Sex Female 6:44 AM EST Gender Identity Not on file Sexual Orientation Not on file Plan of Treatment Upcoming Encounters Date Type Department Care Team (Late st Contact Info) Description 11/17/2025 3:20 PM EDT Consult Breast Care [facility] [address] [place] [id number] Edouard Gaspar MD [address] [place] [address] Health Maintenance Due Date Last Done Comments Breast Cancer Screening 1955 Colorectal Cancer Screening: Colonoscopy 1955 DTaP,Tdap,and Td Vaccines (1 - Tdap) 1974 Pneumococcal Vaccine: 50+ Ye ars (1 of 1 - PCV) 2005 Zoster Vaccines (1 of 2) 2005 Depression Screening 09/10/2024 COVID-19 Vaccine (1 - 2024-2 6 season) 2025 Influenza Vaccine (#1) 2025 Falls Risk Assessment 07/25/2025 Hepatitis C Screening 07/25/2025 Medicare Annual Wellness Visit 07/25/2025 Osteoporosis Screening (Bone Density Screening) 07/25/2025 Social Influencers of Health Screening 07/25/2025 RSV Immunization Adult Patie nts (1 - [...] complete this topic Insurance [place] [address]
--- OUTSIDE RECORDS SUMMARY | 2025-08-31 16:20 | XMS_ITS | Patient Health Record ---
[facility] [place] Address [address] [place] [address] Care Team Providers Care Testing Specialist Name Role Phone Yovana Izaguirre Primary Care Provider Unavailabl e Black, Leticia Unavailable [phone] Allergies Allergen (clinical drug ingredient) Drug/Non Drug Allergy documented on EMR Reaction Allergy Type Onset Date Status nitrofurantoin Macrodantin Unknown Drug Allergy Active Reason For Referral No Information Medications Medication [...] Status Risk Notes Problem Acquired hallux valgus (74320882) Hallux valgus (acquired), left foot (M20.12) Active confirmed Problem Localized, primary osteoarthritis of the ankle and/or foot (538561703) Primary osteoarthrit is, right ankle and foot (M19.071) Active confirmed Problem Acquired hallux valgus (00333398) Hallux valgus (acquired), right foot (M20.11) Active confirmed Problem Acquired hammer toe of right foot ([id number]) Other hammer toe(s) (acquired), right foot (M20.41) Active confirmed Problem Acquired hammer toe of left foot (7141101646972060) Other hammer toe(s) (acquired), left foot (M20.42) Active confirmed Plan Of Treatment Pending Test Test Name Order Date [id number] NAIL, 1-5 11/28/2021 Insurance Providers Payer Name Payer Address Payer Phone Subscriber Number Group Number Insured Name Patient Relationship to Insured Coverage Start Date Coverage End Date [employer] Medicare [id number] [address] [address] [place] [address] [id number] Monica Booker Self - patient is the insured Medical (General) History Medical History History ICD Code Arthritis Cancer Surgical History Surgery Date(Month/Year) hysterectomy, complete 01/08/2013 colonoscopy 2020 Hospitalization History Reason Date(Month/Year) [facility]- Bleeding- GI Dr - ruptured hemorroi ds 11/29
== END 2025-08-31 13:49 | disposition home or self-care (01) ==
LOC: HO.HMCFM 13:01
PROVIDERS: PCP Nurse Practitioner Family; Visit Provider Nurse Practitioner Family
DX: R03.0 Elevated blood-pressure reading, without diagnosis of hypertension (principal); R68.2 Dry mouth, unspecified; F51.04 Psychophysiologic insomnia; F41.1 Generalized anxiety disorder; R73.03 Prediabetes; M81.0 Age-related osteoporosis without current pathological fracture

== ENCOUNTER → 2025-08-31 13:00 | Outpatient (BNVA) | payer MEDICARE, SELFPAY | PROVIDERS: PCP Nurse Practitioner Family; Visit Provider Nurse Practitioner Family | DX: R03.0 Elevated blood-pressure reading, without diagnosis of hypertension (principal); R68.2 Dry mouth, unspecified; F51.04 Psychophysiologic insomnia; F41.1 Generalized anxiety disorder; R73.03 Prediabetes; M81.0 Age-related osteoporosis without current pathological fracture | CPT/HCPCS: 99212 ==